=== PATIENT | female | born 1955 ===

== ENCOUNTER → 2020-02-27 10:46 | Outpatient (BNVA) | payer OTHER, SELFPAY | PROVIDERS: PCP Internal Medicine; Referring Provider Internal Medicine; Visit Provider Nurse Practitioner | DX: K58.2 Mixed irritable bowel syndrome (principal); K21.9 Gastro-esophageal reflux disease without esophagitis; R10.13 Epigastric pain; Z55.0 Illiteracy and low-level literacy; R41.3 Other amnesia; Z79.899 Other long term (current) drug therapy | CPT/HCPCS: 99213 ==

== ENCOUNTER → 2020-08-05 12:39 | Outpatient (BNVA) | payer OTHER, SELFPAY | PROVIDERS: PCP Internal Medicine; Visit Provider Nurse Practitioner ==

== ENCOUNTER 2020-08-27 08:00 | Outpatient (REF) | payer MEDICARE, MEDICAID, SELFPAY ==
--- NOTE | ~2020-08-27 | XR_ITS ---
EXAMINATION: XR KNEE, RIGHT CLINICAL INFORMATION: Pain in the right knee. COMPARISON: None TECHNIQUE: Four views of the right knee. FINDINGS: In the medial compartment, there is joint space narrowing and marginal osteophytes indicative of [id number] osteoarthritis. The lateral compartment is unremarkable. On the lateral projection, no definite patellofemoral abnormality. There is no patellar view. There is no effusion. XR/XR knee RT 2V IMPRESSION: Osteoarthritis of the right knee involving at least the medial compartment. No acute abnormality.
--- NOTE | ~2020-08-27 | XR_ITS ---
EXAMINATION: XR HIP, RIGHT CLINICAL INFORMATION: Pain in the right hip COMPARISON: CT scan of the abdomen and pelvis July 2017. TECHNIQUE: Two views of the right hip. FINDINGS: Small marginal osteophytes about the femoral head neck junction without joint space narrowing. Overall mild arthrosis. Sclerotic changes along the distal sacroiliac joint as seen on prior CT. This may in part reflect osteitis condensans ilii as well as arthrosis of the SI joint. There is no fracture or acute abnormality. Surrounding soft tissues unremarkable. XR/XR hip RT min 2V IMPRESSION: Mild osteoarthritis of the right hip. 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
[2020-08-27 09:41] LABS: MANUAL DIFF FLAG NO
[2020-08-27 09:58] LABS: Basophils Absolute Auto 0.1 X10*3/uL (0.0-0.2); Basophils Percent Auto 1.2 % (0-2); Eosinophils Absolute Auto 0.2 X10*3/uL (0.0-0.4); Eosinophils Percent Auto 3.3 % (0-4); Hematocrit 37.4 % (37-47); Hemoglobin 12.4 g/dl (12.0-16.0); Imm Gran Abs Auto 0.01 X10*3/uL (0.00-0.03); Imm Gran Pct Auto 0.2 % (0.0-0.4); Lymphocytes Absolute Auto 2.2 X10*3/uL (1.2-4.9); Lymphocytes Percent Auto 45.2 % (20-40); Mean Corpuscular HGB Conc 33.2 g/dl (31.0-35.0); Mean Corpuscular Volume 90.6 fL (80-98); Mean Platelet Volume 11.4 fL (9.4-12.3); Monocytes Absolute Auto 0.5 X10*3/uL (0.1-1.2); Monocytes Percent Auto 9.4 % (2-11); Neutrophils Percent Auto 40.7 % (45-73); Platelet Count 270 X10*3/uL (160-400); Red Blood Count 4.13 X10*6/uL (4.20-5.50); Red Cell Distribution Width 15.1 % (11.0-16.0); White Blood Count 4.9 X10*3/uL (4.8-10.8)
[2020-08-27 10:02] LABS: Estimated Average Glucose 126 mg/dL
[2020-08-27 10:13] LABS: Alanine Aminotransferase 7 U/L (0-31); Albumin Level 4.1 g/dL (3.5-5.0); Alkaline Phosphatase 75 U/L (39-117); Anion Gap 12 (12-20); Aspartate Amino Transferase 12 U/L (5-31); Bilirubin Total 0.7 mg/dL (0.0-1.0); Blood Urea Nitrogen 15 mg/dL (9-16); Calcium 9.4 mg/dL (8.4-10.2); Carbon Dioxide 31 mmol/L (22-29); Chloride 105 mmol/L (96-108); Cholesterol 183 mg/dL; Estimated Glomerular Filt Rate > 60; Glucose Random 121 mg/dL (60-115); HDL Cholesterol 50 mg/dL; LDL Cholesterol Calculated 113 mg/dl; Sodium 144 mmol/L (135-145); Triglycerides 100 mg/dL
[2020-08-27 10:37] LABS: Free T4 (Free Thyroxine) 1.19 ng/dL (0.71-1.85); Thyroid Stimulating Hormone 1.66 uIU/mL (0.32-4.0); Vitamin D 25-OH Total 13.4 ng/mL (>30)
[2020-08-27 11:13] LABS: Folate 9.1 ng/mL (> or = 4.0); Vitamin B12 245 pg/mL (200-900)
[2020-08-27 12:00] LABS: Creatinine Urine 223.03 mg/dL; Microalbum/Creatinine Ratio Ur 4.4 ug/mg cr
== END 2020-08-27 08:01 | disposition home or self-care (01) ==
LOC: HO.LAB 08:00
PROVIDERS: PCP Internal Medicine; Visit Provider Internal Medicine
DX: E11.65 Type 2 diabetes mellitus with hyperglycemia (principal); I10 Essential (primary) hypertension; E78.00 Pure hypercholesterolemia, unspecified; R79.89 Other specified abnormal findings of blood chemistry; K21.9 Gastro-esophageal reflux disease without esophagitis; M25.561 Pain in right knee; M25.551 Pain in right hip
CPT/HCPCS: 36415; 73502; 73560; 80053; 80061; 82043; 82306; 82607; 82746; 83036; 84439; 84443; 85025

== ENCOUNTER → 2021-01-26 13:27 | Outpatient (BNVA) | payer MEDICARE, MEDICAID, SELFPAY | PROVIDERS: PCP Internal Medicine; Visit Provider Nurse Practitioner | CPT/HCPCS: Q3014 ==

== ENCOUNTER 2021-03-02 08:04 | Outpatient (REF) | payer MEDICARE, MEDICAID, SELFPAY ==
[2021-03-02 09:31] LABS: Creatinine Urine 145.07 mg/dL
[2021-03-02 09:42] LABS: Alanine Aminotransferase 14 U/L (0-31); Albumin Level 3.9 g/dL (3.5-5.0); Alkaline Phosphatase 80 U/L (39-117); Anion Gap 12 (12-20); Aspartate Amino Transferase 19 U/L (5-31); Bilirubin Total 0.6 mg/dL (0.0-1.0); Blood Urea Nitrogen 16 mg/dL (9-16); Calcium 9.4 mg/dL (8.4-10.2); Carbon Dioxide 30 mmol/L (22-29); Chloride 101 mmol/L (96-108); Cholesterol 211 mg/dL; Estimated Glomerular Filt Rate 48; Glucose Random 133 mg/dL (60-115); HDL Cholesterol 51 mg/dL; LDL Cholesterol Calculated 132 mg/dl; Potassium 4.2 mmol/L (3.3-5.1); Sodium 139 mmol/L (135-145); Total Protein 6.7 g/dL (6.5-8.0); Triglycerides 144 mg/dL
== END 2021-03-02 08:05 | disposition home or self-care (01) ==
LOC: HO.LAB 08:04
PROVIDERS: PCP Internal Medicine; Visit Provider Internal Medicine
DX: E78.00 Pure hypercholesterolemia, unspecified (principal); E11.65 Type 2 diabetes mellitus with hyperglycemia; R79.89 Other specified abnormal findings of blood chemistry
CPT/HCPCS: 36415; 80053; 80061; 82306

== ENCOUNTER 2021-03-05 12:37 | Day surgery (SDC) | payer MEDICARE, MEDICAID, SELFPAY ==
--- NOTE | 2021-03-04 10:39 | P.CONAN_ITS ---
Documented by User: Karlee Smith NP 03/04/21 10:42 HPI - Anesthesia Eval Consult details Narrative: 65yo F for Colonoscopy PMFSH Active Problems Active Problems: All Active Problems (Updated 03/01/21 @ 12:08 by Michelle Sanchez MD) Abscess of nipple, left (Acute) Hematuria (Acute) Plantar warts (Acute) Low vitamin D level (Acute) Asthma (Acute) HTN (hypertension), benign (Acute) High cholesterol (Acute) Irritable bowel syndrome with both constipation and diarrhea (Acute) GERD (gastroesophageal reflux disease) (Acute) Right groin pain (Acute) Hip pain, right (Acute) Knee pain, right (Acute) Seborrheic keratosis (Acute) Annual physical exam (Acute) Colon cancer screening (Acute) Illiterate (Acute) Type 2 diabetes mellitus with hyperglycemia (Acute) Tobacco abuse (Acute) Obesity (BMI 30-39.9) (Acute) Past Medical History Medical History Asthma Elevated cholesterol Gastric ulcer GERD (gastroesophageal reflux disease) History of anemia History of memory loss HTN (hypertension) IBS (irritable bowel syndrome) Illiterate Obesity (BMI 30-39.9) On beta saniya at home Osteoarthritis Osteopenia Otitis externa Tobacco abuse Type 2 diabetes mellitus with hyperglycemia Family History Family History (Updated 03/01/21 @ 11:24 by VIRGIE Ignacio) Father Prostate cancer Mother Brain tumor Surgical History Surgical History H/O colonoscopy with polypectomy H/O cystoscopy H/O oophorectomy History of arthroscopy of left knee History of esophagogastroduodenoscopy (EGD) History of hysterectomy History of total knee replacement Hx of section Social History Social History Household Members: None Housing: Apartment Alcohol intake: never Patient Tobacco Use Status: Current everyday Tobacco user Tobacco use type: Cigarette Cigarettes Per Day: 5 Years Smoked: 2-3 cigarette a day e-Cigarette/Vaping Use: Never Used Second Hand Smoke Exposure: No Use of substances other than those prescribed or required for medical reasons: No Have you been hit, kicked, punched, or otherwise hurt by someone within the past year? If so, by whom?: No Advance Directives: No Advance Directives Information Provided: Yes Recently lost weight without trying: No Nutrition Risks: No Nutritional Risk service: No Current occupational status: disabled Meds Allergies Allergy/AdvReac Type Severity Reaction Status Date / Time ibuprofen [From Motrin] Allergy Unknown GI UPSET Verified 03/01/21 11:21 Home Medications Medication Instructions Recorded Confirmed Last Taken Type atorvastatin 10 mg tablet 10 mg PO DAILY 02/27/20 02/26/21 Unknown History [id number]-[id number]-[id number] 3.5 ml OTIC (EARS) 02/27/20 11/27/20 Unknown History mg/mL-10,000 unit/mL-1 % ear solution Exam Exam Date and Time: March 04, 2021 1039 Pertinent Lab Results Pertinent Lab Results: Laboratory Tests 08/27/20 03/02/21 08:17 08:30 WBC 4.9 Hgb 12.4 Hct 37.4 Plt Count 270 Sodium 139 Potassium 4.2 Chloride 101 Carbon Dioxide 30 H BUN 16 Creatinine 1.14 Assessment and Plan Assessment Anesthesia Assessment: Chart Reviewed Documented by User: Chitra Rice MD 03/05/21 14:41 [facility] Past Medical History Medical History Asthma Elevated cholesterol Gastric ulcer GERD (gastroesophageal reflux disease) History of anemia History of memory loss HTN (hypertension) IBS (irritable bowel syndrome) Illiterate Obesity (BMI 30-39.9) On beta saniya at home Osteoarthritis Osteopenia Otitis externa Tobacco abuse Type 2 diabetes mellitus with hyperglycemia Family History Family History (Updated 03/01/21 @ 11:24 by VIRGIE Ignacio) Father Prostate cancer Mother Brain tumor Family history of problems with anesthesia: No Surgical History Surgical History H/O colonoscopy with polypectomy H/O cystoscopy H/O oophorectomy History of arthroscopy of left knee History of esophagogastroduodenoscopy (EGD) History of hysterectomy History of total knee replacement Hx of section History of Problems with Anesthesia: No Social History Social History Household Members: None Housing: Apartment Alcohol intake: never Patient Tobacco Use Status: Current everyday Tobacco user Tobacco use type: Cigarette Cigarettes Per Day: 5 Years Smoked: 2-3 cigarette a day e-Cigarette/Vaping Use: Never Used Second Hand Smoke Exposure: No Use of substances other than those prescribed or required for medical reasons: No Have you been hit, kicked, punched, or otherwise hurt by someone within the past year? If so, by whom?: No Advance Directives: No Advance Directives Information Provided: Yes Recently lost weight without trying: No Nutrition Risks: No Nutritional Risk service: No Current occupational status: disabled Meds Allergies Allergy/AdvReac Type Severity Reaction Status Date / Time ibuprofen [From Motrin] Allergy Unknown GI UPSET Verified 03/01/21 11:21 Home Medications Medication Instructions Recorded Confirmed Last Taken Type atorvastatin 10 mg tablet 10 mg PO DAILY 02/27/20 02/26/21 Unknown History [id number]-dxzvhqgtj-lxldmsfyd 3.5 ml OTIC (EARS) 02/27/20 11/27/20 Unknown History mg/mL-10,000 unit/mL-1 % ear solution Exam Airway Mallampati Class: II (Missing a couple) TM Dist: >3cm Neck ROM: Full Heart: rrr Lungs: cta Assessment and Plan Assessment Anesthesia Assessment: Anesthesia Plan Discussed and Chart Reviewed Final Anesthetic Review Family History of Problems with Anesthesia: No History of Problems with Anesthesia: No NPO: Yes ASA Class: III Final Preanesthetic Review: No Changes in Pt Med Stat, Meds/Allgs Chart Reviewed and Consent Obtained/Reviewed Patient Risk: Intermediate Procedure Risk: Intermediate Anesthetic Plan Anesthetic Plan: MAC: Disposition: Standard PACU
[2021-03-05 13:03] VITALS: BP 159/70; PULSE 59; RESP 17; TEMP 36.3; O2SAT 98; BMI 30.2
[2021-03-05 13:14] LABS: Glucose, Whole Blood 104 mg/dL (60-115)
[2021-03-05] MEDS: Lactated Ringers 1,000 ML 100 ML IVCONT (13:22)
--- NOTE | 2021-03-05 13:24 | PC.NURSE ---
ls clear nad aware plan of care
--- NOTE | 2021-03-05 13:39 | P.HPSUR_ITS ---
Pre-Procedural Eval Section A Date of Service: 03/05/21 The patient is an INPATIENT: No The History & Physical has been completed within 30 days and I have reviewed it.: No Section B Chief Complaint: Screening Details of Present Illness: Colon cancer screening, IBS with diarrhea and constipation Relevant Family History (Specify if Yes): No Relevant Social History: Tobacco Use Present Medications: see Short Stay Collaborative assessment Medical History: Significant History (Gastric ulcer Illiterate Obesity (BMI 30- 39.9) Osteoarthritis Osteopenia Otitis externa Tobacco abuse Type 2 diabetes mellitus with hyperglycemia) History of Previous Operations: Relevant previous surgery/procedure and date(s) (H/O colonoscopy with polypectomy H/O cystoscopy H/O oophorectomy History of esophagogastroduodenoscopy (EGD) History of hysterectomy History of total knee replacement) Allergies: Allergies Allergy/AdvReac Type Severity Reaction Status Date / Time ibuprofen [From Motrin] Allergy Unknown GI UPSET Verified 03/01/21 11:21 Review of Systems Sugical H&P ROS: Negative: Constitution, Cardiovascular, Respiratory and Gastrointestinal Exam Surgical H&P Exam: Normal: Heart, Normal: Lungs, Normal: Extremities and Normal: Abdomen Plan Diagnosis/Plan: Unchanged I have reviewed the history and physical and performed a pertinent physical examination on my patient. No changes have occurred unless specified.
--- NOTE | 2021-03-05 13:42 | P.BOP_ITS ---
Brief Operative Note Date of Service: 03/05/21 Pre-op diagnosis: Colon cancer screening, IBS Post-op diagnosis: other (Colon polyps, diverticulosis) Procedure: COLONOSCOPY TILL CECUM WITH BIOPSIES Consent: Indications for the procedure and potential complications of bleeding, perforation, reaction to medications and missed diagnosis were discussed with the patient and informed consent was obtained. Instrument: Olympus PCF H 190 L variable stiffness pediatric colonoscope Monitoring: Vital signs and clinical assessment, intermittent blood pressure monitoring, continuous EKG monitoring, Pulse oximetry and Carbon Dioxide monitoring were done throughout the procedure. Colon withdrawl time was 28 minutes. Procedure: The patient was placed in the left lateral decubitis position and pre-procedure medications were administered. After a digital rectal examination of the ano-rectum, the video colonoscope was inserted into the rectum and advanced through the colon to the cecum. The colonoscope was slowly withdrawn in a retrograde panoramic fashion and the colon mucosa was carefully examined including a retroflexed view of the rectum. Findings and interventions are described below. Procedure Difficulty: Without difficulty Findings: Terminal Ileum: Not evaluated Cecum: Normal Ascending Colon: Two 3-4 mm sessile polyps removed with the cold biopsy Transverse Colon: Normal Descending Colon: Normal Sigmoid Colon: A 4-5 mm sessile polyp removed with the cold biopsy. Moderate diverticulosis Rectum: A few 2-3 mm diminutive appearing polyps - one removed with a cold bxl Ano-rectum: Tequila-anal skin tags Colon preparation: Good copious irrigation. Impression and Post Procedure Diagnosis: Colonoscopy Findings: Four small polyps removed Moderate diverticulosis seen in the sigmoid colon Plan: Await pathology results Patient has an appointment on 03/18/21 in the GI [facility] with Brenda Mann NP . Repeat Colonoscopy interval based on path results - in 3-5 years if polyps are adenomatous and 10 years if polyps are hyperplastic. Above findings were reviewed with the patient and colon polyps and diverticulosis handouts were given in the discharge area Surgeon: Bradley Erazo MD Anesthesia: MAC (Dr Da Silva) Was an Volunteer Specialist used for this Procedure?: Yes Volunteer Specialist: Darlene Dutta Estimated blood loss (mL): 0 Pathology: other (A. ascending colon polyps B- Sigmoid polyp C- Rectal polyp) Condition: stable Disposition: PACU
--- NOTE | 2021-03-05 13:44 | W.PM.OPN ---
Operative Note Operative Note Date of Service: 03/05/21 Narrative: Pre-op diagnosis:?Colon cancer screening, IBS Post-op diagnosis:?other (Colon polyps, diverticulosis) Procedure:? COLONOSCOPY TILL CECUM WITH BIOPSIES Consent: Indications for the procedure and potential complications of bleeding, perforation, reaction to medications and missed diagnosis were discussed with the patient and informed consent was obtained. Instrument: Olympus PCF H 190 L variable stiffness pediatric colonoscope Monitoring: Vital signs and clinical assessment, intermittent blood pressure monitoring, continuous EKG monitoring, Pulse oximetry and Carbon Dioxide monitoring were done throughout the procedure. Colon withdrawl time was 28 minutes. Procedure: The patient was placed in the left lateral decubitis position and pre-procedure medications were administered. After a digital rectal examination of the ano-rectum, the video colonoscope was inserted into the rectum and advanced through the colon to the cecum. The colonoscope was slowly withdrawn in a retrograde panoramic fashion and the colon mucosa was carefully examined including a retroflexed view of the rectum. Findings and interventions are described below. Procedure Difficulty: Without difficulty Findings: Terminal Ileum: Not evaluated Cecum:? Normal Ascending Colon:? Two 3-4 mm sessile polyps removed with the cold biopsy Transverse Colon:? Normal Descending Colon:? Normal Sigmoid Colon:? A 4-5 mm sessile polyp removed with the cold biopsy. Moderate diverticulosis Rectum:? A few 2-3 mm diminutive appearing polyps - one removed with a cold bxl Ano-rectum:? Tequila-anal skin tags Colon preparation:? Good copious irrigation. Impression and Post Procedure Diagnosis: Colonoscopy Findings: Four small polyps removed Moderate diverticulosis seen in the sigmoid colon Plan: Await pathology results Patient has an appointment on 03/18/21 in the GI Clinic with? Brenda Mann NP? . Repeat Colonoscopy interval based on path results - in 3-5 years if polyps are adenomatous and 10 years if polyps are hyperplastic. Above findings were reviewed with the patient and colon polyps and diverticulosis handouts were given in the discharge area Surgeon:?Bradley Erazo MD Anesthesia:?MAC (Dr Da Silva) Was an Chocolate Packer used for this Procedure?:?Yes Chocolate Packer:?Darlene Dutta Estimated blood loss (mL):?0 Pathology:?other (A. ascending colon polyps? B- Sigmoid polyp? C- Rectal polyp) Condition:?stable Disposition:?PACU
[2021-03-05 15:33] VITALS: BP 97/70; PULSE 58; RESP 16; TEMP 36.2; O2SAT 97
[2021-03-05 15:48] VITALS: BP 155/78; PULSE 61; RESP 16; TEMP 36.2; O2SAT 97
== END 2021-03-05 16:08 | disposition home or self-care (01) ==
PROVIDERS: PCP Internal Medicine; Visit Provider Internal Medicine Gastroenterology
PROC: 0DJD8ZZ Inspection of Lower Intestinal Tract, Via Natural or Artificial Opening Endoscopic (ICD-10-PCS; CPT 45378; principal; 2021-03-05 13:50)
DX: Z12.11 Encounter for screening for malignant neoplasm of colon (principal); K63.5 Polyp of colon; K62.1 Rectal polyp; K57.30 Diverticulosis of large intestine without perforation or abscess without bleeding; K58.2 Mixed irritable bowel syndrome; K64.4 Residual hemorrhoidal skin tags; K21.9 Gastro-esophageal reflux disease without esophagitis; M85.80 Other specified disorders of bone density and structure, unspecified site; I10 Essential (primary) hypertension; J45.909 Unspecified asthma, uncomplicated; E11.65 Type 2 diabetes mellitus with hyperglycemia; E66.9 Obesity, unspecified; Z68.36 Body mass index [BMI] 36.0-36.9, adult; F17.210 Nicotine dependence, cigarettes, uncomplicated; Z55.0 Illiteracy and low-level literacy; Z79.899 Other long term (current) drug therapy
CPT/HCPCS: 45380; 82947; 88305

== ENCOUNTER → 2021-03-18 10:15 | Outpatient (BNVA) | payer MEDICARE, MEDICAID, SELFPAY | PROVIDERS: PCP Internal Medicine; Visit Provider Nurse Practitioner | DX: K58.2 Mixed irritable bowel syndrome (principal); K21.9 Gastro-esophageal reflux disease without esophagitis; Z55.0 Illiteracy and low-level literacy; Z98.890 Other specified postprocedural states; Z86.010 Personal history of colon polyps | CPT/HCPCS: 99212 ==

== ENCOUNTER 2021-05-12 12:01 | Outpatient (REF) | payer MEDICARE, MEDICAID, SELFPAY ==
--- NOTE | ~2021-05-12 | US_ITS ---
EXAMINATION: US RETROPERITONEAL LIMITED (RENAL ONLY) CLINICAL INFORMATION: Hematuria, unspecified. COMPARISON: Renal ultrasound 08/14/2019 and 08/23/2018. CT abdomen and pelvis 08/10/2017. KUB 01/30/2017. TECHNIQUE: Real-time imaging of the kidneys. FINDINGS: RIGHT KIDNEY: 8.6 x 4.9 x 4.3 cm (SAG x AP x TRV). The kidney is normal in size, contour, and echogenicity. Renal cortical thickness is normal. There are 2 cysts measuring 3 cm in the midpole and 2.5 cm in the lower pole. No renal calculi or hydronephrosis. LEFT KIDNEY: 9.7 x 5.1 x 4.8 cm (SAG x AP x TRV). The kidney is normal in size, contour, and echogenicity. Renal cortical thickness is normal. There is a 1 x 2 cm cyst in the lower pole. There is a 5 mm echogenic density with twinkle artifact in the midpole questionable for a stone versus vascular reflector. No hydronephrosis. US/US renal BI IMPRESSION: I lateral renal cysts. Question left renal stone versus vascular reflector the midpole.
== END 2021-05-12 12:02 | disposition home or self-care (01) ==
LOC: HO.US 12:01
PROVIDERS: PCP Internal Medicine; Visit Provider Urology
DX: R31.9 Hematuria, unspecified (principal)
CPT/HCPCS: 76775

== ENCOUNTER → 2021-06-04 10:18 | Outpatient (BNVA) | payer MEDICARE, MEDICAID, SELFPAY | PROVIDERS: PCP Internal Medicine | DX: N20.0 Calculus of kidney (principal) | CPT/HCPCS: 99212 ==

== ENCOUNTER 2022-02-17 08:55 | Outpatient (REF) | payer MEDICARE, MEDICAID, SELFPAY ==
[2022-02-17 09:06] LABS: MANUAL DIFF FLAG NO
[2022-02-17 10:18] LABS: Basophils Absolute Auto 0.1 X10*3/uL (0.0-0.2); Basophils Percent Auto 1.7 % (0-2); Eosinophils Absolute Auto 0.2 X10*3/uL (0.0-0.4); Eosinophils Percent Auto 4.5 % (0-4); Hematocrit 37.3 % (37.0-47.0); Hemoglobin 12.5 g/dl (12.0-16.0); Imm Gran Abs Auto 0.01 X10*3/uL (0.00-0.03); Imm Gran Pct Auto 0.2 % (0.0-0.4); Lymphocytes Absolute Auto 1.9 X10*3/uL (1.2-4.9); Lymphocytes Percent Auto 45.4 % (20-40); Mean Corpuscular HGB Conc 33.5 g/dl (31.0-35.0); Mean Corpuscular Hemoglobin 30.6 pg (27.0-33.0); Mean Corpuscular Volume 91.2 fL (80.0-98.0); Mean Platelet Volume 11.9 fL (9.4-12.3); Monocytes Absolute Auto 0.5 X10*3/uL (0.1-1.2); Monocytes Percent Auto 10.6 % (2-11); Neutrophils Absolute Auto 1.6 x10*3/uL (2.0-8.3); Neutrophils Percent Auto 37.6 % (45-73); Platelet Count 282 X10*3/uL (160-400); Red Blood Count 4.09 X10*6/uL (4.20-5.50); Red Cell Distribution Width 13.2 % (11.0-16.0); White Blood Count 4.2 X10*3/uL (4.8-10.8)
[2022-02-17 10:29] LABS: Estimated Average Glucose 126 mg/dL
[2022-02-17 10:44] LABS: Alanine Aminotransferase 10 U/L (0-31); Alkaline Phosphatase 68 U/L (39-117); Anion Gap 17 (12-20); Aspartate Amino Transferase 15 U/L (5-31); Bilirubin Total 0.2 mg/dL (0.0-1.0); Blood Urea Nitrogen 26 mg/dL (9-16); Calcium 9.4 mg/dL (8.4-10.2); Carbon Dioxide 27 mmol/L (22-29); Chloride 100 mmol/L (96-108); Cholesterol 157 mg/dL; Estimated Glomerular Filt Rate 51; Glucose Random 119 mg/dL (60-115); HDL Cholesterol 47 mg/dL; LDL Cholesterol Calculated 98 mg/dl; Potassium 4.5 mmol/L (3.3-5.1); Sodium 139 mmol/L (135-145); Total Protein 6.9 g/dL (6.5-8.0); Triglycerides 63 mg/dL
[2022-02-17 11:08] LABS: Free T4 (Free Thyroxine) 1.17 ng/dL (0.71-1.85); Thyroid Stimulating Hormone 1.83 uIU/mL (0.32-4.0); Vitamin D 25-OH Total 14.1 ng/mL (>30)
[2022-02-17 11:10] LABS: Creatinine Urine 52.82 mg/dL; Microalbumin Urine < 5.0 mg/L
[2022-02-17 11:44] LABS: Folate 12.3 ng/mL (> or = 4.0); Vitamin B12 352 pg/mL (200-900)
== END 2022-02-17 08:56 | disposition home or self-care (01) ==
LOC: HO.LAB 08:55
PROVIDERS: PCP Internal Medicine; Visit Provider Internal Medicine
DX: E11.65 Type 2 diabetes mellitus with hyperglycemia (principal); E78.00 Pure hypercholesterolemia, unspecified
CPT/HCPCS: 36415; 80053; 80061; 82043; 82306; 82607; 82746; 83036; 84439; 84443; 85025

== ENCOUNTER 2022-05-30 12:13 | Outpatient (REF) | payer MEDICARE, MEDICAID, SELFPAY ==
--- NOTE | ~2022-05-30 | US_ITS ---
EXAMINATION: US RETROPERITONEAL LIMITED (RENAL ONLY) CLINICAL INFORMATION: Calculus of kidney. COMPARISON: Ultrasound renal 05/12/2021. US renals 08/14/2019. TECHNIQUE: Real-time imaging of the kidneys. FINDINGS: RIGHT KIDNEY: 8.0 x 4.6 x 5.7 cm (SAG x AP x TRV). The kidney is normal in size, contour, and echogenicity. Renal cortical thickness is normal. No renal calculi or hydronephrosis. Mid pole 2.6 cm cyst, previously measuring 3 cm. Additional cyst inferior to this measuring 2.4 cm, previously measuring 2.5 cm. LEFT KIDNEY: 9.0 x 4.8 x 5.4 cm (SAG x AP x TRV). The kidney is normal in size, contour, and echogenicity. Renal cortical thickness is normal. No renal calculi or hydronephrosis. There is a mid pole 1.3 cm cyst. There is a 0.9 cm lower pole cyst. US/US renal BI IMPRESSION: Bilateral renal cysts as detailed above..
== END 2022-05-30 12:14 | disposition home or self-care (01) ==
LOC: HO.US 12:13
PROVIDERS: PCP Internal Medicine
DX: N20.0 Calculus of kidney (principal)
CPT/HCPCS: 76775

== ENCOUNTER 2022-06-06 08:39 | Outpatient (REF) | payer MEDICARE, MEDICAID, SELFPAY ==
[2022-06-06 17:10] LABS: Urine Cytology See Pathology rpt
== END 2022-06-06 08:40 | disposition home or self-care (01) ==
LOC: HO.LAB 08:39
PROVIDERS: PCP Internal Medicine; Visit Provider Nurse Practitioner Family
DX: N20.0 Calculus of kidney (principal); N28.1 Cyst of kidney, acquired; Z79.899 Other long term (current) drug therapy
CPT/HCPCS: 88112; 99212

== ENCOUNTER → 2022-06-22 07:51 | Outpatient (BNVA) | payer MEDICARE, MEDICAID, SELFPAY | PROVIDERS: PCP Internal Medicine; Referring Provider Internal Medicine; Visit Provider Nurse Practitioner | DX: K58.2 Mixed irritable bowel syndrome (principal); K21.9 Gastro-esophageal reflux disease without esophagitis; Z55.0 Illiteracy and low-level literacy; Z98.890 Other specified postprocedural states; Z86.010 Personal history of colon polyps | CPT/HCPCS: 99212 ==

== ENCOUNTER 2022-07-06 12:05 | Outpatient (REF) | payer MEDICARE, MEDICAID, SELFPAY ==
--- NOTE | ~2022-07-06 | XR_ITS ---
EXAMINATION: XR HIP, LEFT CLINICAL INFORMATION: Peripheral vascular disease COMPARISON: None TECHNIQUE: Two views of the left hip. FINDINGS: No acute fracture or dislocation. Joint spaces are maintained. Soft tissues are unremarkable. XR/XR hip LT min 2V IMPRESSION: No acute osseous abnormality.
--- NOTE | ~2022-07-06 | XR_ITS ---
EXAMINATION: XR shoulder LT min 2V CLINICAL INFORMATION: Reason for Exam I73.9 - Peripheral vascular disease, unspecified COMPARISON: None TECHNIQUE: Four views of the shoulder. FINDINGS: No acute fracture or dislocation. Moderate degenerative changes of the shoulder with degenerative spurring of the glenohumeral and acromioclavicular joints and loss of glenohumeral joint space. Soft tissues are unremarkable. XR/XR shoulder LT min 2V IMPRESSION: * Moderate degenerative changes of the shoulder.
== END 2022-07-06 12:06 | disposition home or self-care (01) ==
LOC: HO.XRAY 12:05
PROVIDERS: PCP Internal Medicine; Visit Provider Internal Medicine
DX: I73.9 Peripheral vascular disease, unspecified (principal); M19.012 Primary osteoarthritis, left shoulder
CPT/HCPCS: 73030; 73502

== ENCOUNTER → 2022-08-16 09:04 | Outpatient (BNVA) | payer MEDICARE, MEDICAID, SELFPAY | PROVIDERS: PCP Internal Medicine; Referring Provider Internal Medicine; Visit Provider Nurse Practitioner | DX: K21.9 Gastro-esophageal reflux disease without esophagitis (principal); K58.2 Mixed irritable bowel syndrome; Z55.0 Illiteracy and low-level literacy | CPT/HCPCS: 99212 ==

== ENCOUNTER → 2022-11-07 09:57 | Outpatient (BNVA) | payer MEDICARE, MEDICAID, SELFPAY | PROVIDERS: PCP Internal Medicine; Visit Provider Physician Assistant | DX: M75.102 Unspecified rotator cuff tear or rupture of left shoulder, not specified as traumatic (principal) | CPT/HCPCS: 99202 ==

== ENCOUNTER 2023-02-01 13:53 | Outpatient (AMB) | payer MEDICARE, MEDICAID, SELFPAY ==
[2023-02-01 14:24] VITALS: BP 142/86; PULSE 105; O2SAT 98; BMI 38.6
--- NOTE | 2023-02-01 14:26 | A.OFFVIS_ITS ---
Intake Vital Signs 02/01/23 14:24 02/01/23 14:29 Height 4 ft 11 in Weight 191 lb BMI 38.6 38.6 BP 142/86 H Blood Pressure Location Lt brachial Position Sitting Pulse 105 H Pulse Source Pulse Oximeter Temp Source Skin Pulse Oximetry (%) 98 Oxygen Delivery Method Room Air Intake Visit Reasons: AWV Allergies ibuprofen [From Motrin] Allergy (Unknown, Verified 02/01/23 14:57) GI UPSET Medication List - Last Reconciled 02/01/23 by SHERRIE Burgos albuterol sulfate 2.5 mg (3 mL) inhalation Q4-6H PRN 90 days albuterol sulfate 90 mcg/actuation 2 inhalations PO Q4H PRN alendronate 70 mg PO QWEEK blood pressure monitor (Blood Pressure Kit) As directed cane As directed celecoxib (Celebrex) 200 mg PO DAILY cholecalciferol (vitamin D3) 50 mcg PO DAILY 90 days clonidine HCl 0.1 mg PO TID 90 days lili.stocking,knee,reg,xlrg As directed 20-30 mm HG diclofenac sodium 75 mg PO BID PRN docusate sodium (Colace) 100 mg PO .DAILY WITH FOOD 30 days famotidine 40 mg PO BID 30 days felodipine ER 10 mg PO DAILY fluticasone propionate 50 mcg/actuation (Flonase Allergy Relief) 1 spray intranasal DAILY fluticasone propionate 110 mcg/actuation 2 inhalations inhalation BID 90 days hydrochlorothiazide 25 mg PO DAILY lisinopril 40 mg PO DAILY metoprolol succinate ER 150 mg (1.5 x 100 mg) PO DAILY 90 days pyridoxine (vitamin B6) 100 mg PO DAILY sennosides (senna) 17.2 mg (2 x 8.6 mg) PO BEDTIME 90 days Shower Chair As directed tramadol 50 mg PO BEDTIME HPI HPI Comments History of Present Illness Details 67-year-old female past medical history significant for type 2 diabetes mellitus, GERD, IBS, hypertension, high cholesterol, asthma, PVD. Patient of presents today for subsequent annual well visit. Eye exam: UTD follow with Dr. Craft pap smear: patient states appointment in November Mammogram completed at [facility] on 12/26/22: Benign BMD: Completed October 2022 showed osteopenia, patient currently on alendronate. Colonoscopy completed in October [address] Erazo Patient reminded to get previously ordered fasting lab work completed. [place] of care was reviewed with patient patient was provided with a written screening schedule. [facility] Medical History Abscess of nipple, left Annual physical exam Asthma Asthma exacerbation Colon cancer screening Elevated cholesterol Gastric ulcer GERD (gastroesophageal reflux disease) History of anemia History of memory loss HTN (hypertension) IBS (irritable bowel syndrome) Illiterate Knee pain, right Obesity (BMI 30-39.9) On beta saniya at home Osteoarthritis Osteopenia Otitis externa Renal calculi Renal cyst Seborrheic keratosis Tobacco abuse Type 2 diabetes mellitus with hyperglycemia Surgical History H/O colonoscopy with polypectomy H/O cystoscopy H/O oophorectomy History of arthroscopy of left knee History of esophagogastroduodenoscopy (EGD) History of hysterectomy History of total knee replacement Hx of section Family History Father Prostate cancer Mother Brain tumor Social History Household Members: None Housing: Apartment Alcohol intake: never Patient Tobacco Use Status: Current everyday Tobacco user Tobacco use type: Cigarette Cigarettes Per Day: 5 Years Smoked: 2-3 cigarette a day e-Cigarette/Vaping Use: Never Used Second Hand Smoke Exposure: No service: No Current occupational status: disabled Cognitive needs: Yes Hearing needs: No Vision needs: No Questionnaire Medicare Wellness Checkup [age] What gender do you identify with?: female During the past 4 weeks, how much have you been bothered by emotional problems such as feeling anxious, depressed, irritable, sad or downhearted, and blue?: not at all During the past 4 weeks, has your physical & emotional health limited your social activities with family, friends, neighbors, or groups?: not at all During the past 4 weeks, how much bodily pain have you generally had?: severe pain During the past 4 weeks, was someone available to help you if you needed & wanted help?: yes, quite a bit During the past 4 weeks, what was the hardest physical activity you could do for at least 2 minutes?: light Can you get to places out of walking distance without help? (For eg., can you travel alone on buses, taxis or drive your car?): No Can you go shopping for groceries or clothes without someone's help?: No Can you prepare your own meals?: Yes Can you do your housework without help?: No Because of any health problems, do you need the help of another person with your personal care needs such as eating, bathing, dressing or getting around the house?: Yes Can you handle your own money without help?: Yes During the past 4 weeks, how would you rate your health in general?: fair During the past 4 weeks how have things been going for you?: good & bad parts about equal Are you having difficulties driving your car?: not applicable, I don't use a car Do you always fasten your seat belt when you are in a car?: yes, usually During past 4 weeks, have you been bothered by the following: never: Sexual problems? and Problems using the telephone?, sometimes: Tiredness or fatigue? and often: Falling or dizzy when standing up and Teeth or denture problems? Have you fallen 2 or more times in the past year?: Yes Are you afraid of falling?: Yes Are you a smoker?: yes, but I'm not ready to quit During the past 4 weeks, how many drinks of wine, beer, or other alcoholic beverages did you have?: no alcohol at all Do you exercise for about 20 minutes 3 or more times a week?: yes, most of the time Have you been given information to help with the following?: no: Hazards in your house that might hurt you? and no: Keeping track of your medications? How often do you have trouble taking medicines the way you have been told to take them?: I always take medicine as prescribed How confident are you that you can control & manage most of your health problems?: somewhat confident What is your race?: or origin or descent Mini Mental State Exam (MMSE) Orientation What is the (year) (season) (date) (day) (month)?: year, season, date, day and month Score Score: 5 Activity of Daily Living Bathing - sponge bath, tub bath or shower: receives no assistance (gets in/out by self, if usual bathing means Dressing - getting clothes from closets & drawers, including inner/outer garments & fasteners.: gets clothes & gets completely dressed without help Toileting - going to the 'toilet room' for urine/bowel elimination & cleaning self/arranging clothes: goes to toilet room, cleans self, arranges clothes wi thout help Transfer: moves in & out of bed and chair without help (may use support object) Continence: controls urination/bowel movements completely by self Feeding: feeds self without help Total Score: 0 Information obtained from: patient Using telephone: independent Traveling: dependent Shopping: needs assistance Preparing meals: independent Housework: needs assistance Taking medicine: independent Managing money: needs assistance PHQ-9 Over the last 2 weeks, how often have you been bothered by any of the following problems? 1. Little interest or pleasure in doing things: not at all 2. Feeling down, depressed, or hopeless: not at all 3. Trouble falling or staying asleep, or sleeping too much: several days 4. Feeling tired or having little energy: several days 5. Poor appetite or overeating: several days 6. Feeling bad about yourself - or that you are a failure or have let yourself or your family down: not at all 7. Trouble concentrating on things, such as reading the newspaper or watching television: more than half the days 8. Moving or speaking so slowly that other people could have noticed. Or the opposite - being so fidgety or restless that you have been moving around a lot more than usual: not at all 9. Thoughts that you would be better off or of hurting yourself in some way: not at all Total score: 5 Depression Screening Interpretation: Positive 31187 - PHQ-9 Billing: Yes Source: Developed by Drs. Konstantin Langston, Saskia Sales, Luciano Leach and colleagues, with an educational liya from [employer]. Physical Exam Vital Signs: Last Vital Signs Pulse 105 H 02/01/23 14:24 BP 142/86 H 02/01/23 14:24 Pulse Ox 98 02/01/23 14:24 Oxygen Delivery Method Room Air 02/01/23 14:24 BMI result Body Mass Index 38.6 Assessment & Plan Assessment & Plan (1) Bilateral lower extremity edema: Code(s): R60.0 - Localized edema Plan: Patient BNP lab ordered to further evaluate for fluid overload. Patient advised to elevate legs when sitting (2) HTN (hypertension), benign: Code(s): I10 - Essential (primary) hypertension Plan: Continue on hydrochlorothiazide 25 mg daily, lisinopril 40 mg daily and metoprolol 150 mg daily. Patient requesting refill on metoprolol, Rx sent to patient's pharmacy. (3) High cholesterol: Code(s): E78.00 - Pure hypercholesterolemia, unspecified Plan: Continue to follow low-cholesterol diet. Patient reminded to get previously ordered fasting blood work completed. LDL goal less than 100. (4) Type 2 diabetes mellitus with hyperglycemia: Comment: Dr. 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 (5) Medicare annual wellness visit, subsequent: Code(s): Z00.00 - Encounter for general adult medical examination without abnormal findings Plan: Follow-up in 1 year for subsequent annual well visit. Plan Keep scheduled follow-up with PCP or follow-up sooner if needed. Orders: Orders B Type Natriuretic Peptide Today R60.0 - Localized edema Medications: Refilled metoprolol succinate ER 150 mg (1.5 x 100 mg) PO DAILY 90 days 135 tabs 2RF I10 - Essential (primary) hypertension Quality Reporting (2019) Depression/Bipolar (159/160/161/177) PHQ-9: Total score: 5 Coding Level of Care Code Medicare Subsequent (G0439) Diagnoses Bilateral lower extremity edema R60.0 HTN (hypertension), benign I10 High cholesterol E78.00 Type 2 diabetes mellitus with hyperglycemia, without long-term current use of insulin E11.65 Diabetes mellitus intermediate accountant insulin use: without intermediate accountant use Medicare annual wellness visit, subsequent Z00.00
[2023-02-01 14:29] VITALS: BMI 38.6
== END 2023-02-01 15:21 | disposition home or self-care (01) ==
PROVIDERS: PCP Internal Medicine; Visit Provider Nurse Practitioner Family
DX: Z00.00 Encounter for general adult medical examination without abnormal findings (principal); I10 Essential (primary) hypertension; E11.65 Type 2 diabetes mellitus with hyperglycemia; R60.0 Localized edema; E78.00 Pure hypercholesterolemia, unspecified
CPT/HCPCS: G0438

== ENCOUNTER 2023-02-02 07:56 | Outpatient (REF) | payer MEDICARE, MEDICAID, SELFPAY ==
[2023-02-02 08:17] LABS: MANUAL DIFF FLAG NO
[2023-02-02 08:53] LABS: Basophils Absolute Auto 0.1 X10*3/uL (0.0-0.2); Basophils Percent Auto 1.2 % (0-2); Eosinophils Absolute Auto 0.2 X10*3/uL (0.0-0.4); Hematocrit 38.2 % (37.0-47.0); Imm Gran Abs Auto 0.01 X10*3/uL (0.00-0.03); Imm Gran Pct Auto 0.2 % (0.0-0.4); Lymphocytes Absolute Auto 2.8 X10*3/uL (1.2-4.9); Lymphocytes Percent Auto 46.7 % (20-40); Mean Corpuscular Hemoglobin 30.6 pg (27.0-33.0); Mean Corpuscular Volume 89.9 fL (80.0-98.0); Mean Platelet Volume 11.8 fL (9.4-12.3); Monocytes Absolute Auto 0.7 X10*3/uL (0.1-1.2); Neutrophils Absolute Auto 2.2 x10*3/uL (2.0-8.3); Neutrophils Percent Auto 36.9 % (45-73); Platelet Count 286 X10*3/uL (160-400); Red Blood Count 4.25 X10*6/uL (4.20-5.50); Red Cell Distribution Width 14.6 % (11.0-16.0); White Blood Count 5.9 X10*3/uL (4.8-10.8)
[2023-02-02 09:06] LABS: B Type Natriuretic Peptide 33 pg/mL (<100)
[2023-02-02 10:04] LABS: Alanine Aminotransferase 10 U/L (0-31); Albumin Level 4.2 g/dL (3.5-5.0); Alkaline Phosphatase 66 U/L (39-117); Anion Gap 15 (12-20); Aspartate Amino Transferase 18 U/L (5-31); Bilirubin Total 0.7 mg/dL (0.0-1.0); Blood Urea Nitrogen 18 mg/dL (9-16); Carbon Dioxide 27 mmol/L (22-29); Chloride 104 mmol/L (96-108); Cholesterol 189 mg/dL (<200); Estimated Glomerular Filt Rate 44; Glucose Random 128 mg/dL (60-115); HDL Cholesterol 54 mg/dL (>40); LDL Cholesterol Calculated 116 mg/dL (<100); Potassium 3.7 mmol/L (3.3-5.1); Sodium 142 mmol/L (135-145); Total Protein 7.6 g/dL (6.5-8.0); Triglycerides 96 mg/dL (<150)
[2023-02-02 10:09] LABS: Free T4 (Free Thyroxine) 1.33 ng/dL (0.71-1.85)
[2023-02-02 10:25] LABS: Folate 10.4 ng/mL (> or = 4.0); Vitamin B12 380 pg/mL (200-900)
[2023-02-02 11:11] LABS: Microalbum/Creatinine Ratio Ur 4.3 ug/mg cr (<30)
== END 2023-02-02 07:57 | disposition home or self-care (01) ==
LOC: HO.LAB 07:56
PROVIDERS: Nurse Practitioner Family; PCP Internal Medicine; Visit Provider Internal Medicine
DX: E11.65 Type 2 diabetes mellitus with hyperglycemia (principal); E78.00 Pure hypercholesterolemia, unspecified; R60.0 Localized edema; E55.9 Vitamin D deficiency, unspecified; M85.80 Other specified disorders of bone density and structure, unspecified site
CPT/HCPCS: 36415; 80053; 80061; 82043; 82306; 82570; 82607; 82746; 83880; 84439; 84443; 85025

== ENCOUNTER 2023-02-08 09:32 | Outpatient (AMB) | payer MEDICARE, MEDICAID, SELFPAY ==
[2023-02-08 09:34] VITALS: BP 152/88; PULSE 79; O2SAT 97; BMI 39.4
--- NOTE | 2023-02-08 09:34 | A.OFFPC_ITS ---
Vital Signs 02/08/23 09:34 02/08/23 10:11 Height 4 ft 11 in Weight 195 lb BMI 39.4 BP 152/88 H 140/80 H Blood Pressure Location Lt brachial Lt brachial Position Sitting Sitting Pulse 79 Pulse Source Pulse Oximeter Pulse Oximetry (%) 97 Oxygen Delivery Method Room Air Intake Visit Reasons: Diabetes mellitus, osteoporosis Allergies ibuprofen [From Motrin] Allergy (Unknown, Verified 02/08/23 09:34) GI UPSET felodipine Adverse Reaction (Intermediate, Unverified 02/08/23 10:21) leg swelling Medication List - Last Reconciled 02/08/23 by Michelle Sanchez, albuterol sulfate 2.5 mg (3 mL) inhalation Q4-6H PRN 90 days albuterol sulfate 90 mcg/actuation 2 inhalations PO Q4H PRN alendronate 70 mg PO QWEEK atorvastatin 10 mg PO DAILY blood pressure monitor (Blood Pressure Kit) As directed cane As directed celecoxib (Celebrex) 200 mg PO DAILY cholecalciferol (vitamin D3) 50 mcg PO DAILY 90 days clonidine HCl 0.1 mg PO TID 90 days lili.stocking,knee,reg,xlrg As directed 20-30 mm HG diclofenac sodium 75 mg PO BID PRN docusate sodium (Colace) 100 mg PO .DAILY WITH FOOD 30 days famotidine 40 mg PO BID 30 days fluticasone propionate 50 mcg/actuation (Flonase Allergy Relief) 1 spray intranasal DAILY fluticasone propionate 110 mcg/actuation 2 inhalations inhalation BID 90 days hydrochlorothiazide 25 mg PO DAILY lisinopril 40 mg PO DAILY metoprolol succinate ER 150 mg (1.5 x 100 mg) PO DAILY 90 days [id number]-JE 3.5-10,000-1 mg/mL-unit/mL-% 4 drps otic (ear) right Q8H 10 days pyridoxine (vitamin B6) 100 mg PO DAILY sennosides (senna) 17.2 mg (2 x 8.6 mg) PO BEDTIME 90 days Shower Chair As directed tramadol 50 mg PO BEDTIME Tobacco use date assessed: 07/06/22 Fall risk assessment: No Falls in past year Last assessed Fall Risk: 02/08/23 Dental Screening Dental Screen Date: 02/08/23 Did you have a dental visit in the last 12 months?: Yes Did you have a dental problem in the last 6 months where you did not have access to dental care?: No Was dental information given to patient?: Patient has dentist HPI Diabetes mellitus, osteoporosis HPI Details 67-year-old obese female with controlled diabetes mellitus hypertension hypercholesterolemia coming in for follow-up. Last seen 1 week ago patient is here for follow-up. Mammogram bone density and colonoscopy are up-to-date. 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 concern on out of metoprolol med will call the pharmacy. complains of LE edema and dicsused that she is on felodipine. d/c and have her take the metoprolol hopefully this helps the LE edema ON LICENSE OF [facility] Medical History (Updated 02/08/23 @ 10:18 by Michelle Sanchez MD) Renal cyst Asthma exacerbation Annual physical exam Renal calculi Abscess of nipple, left On beta saniya at home History of anemia IBS (irritable bowel syndrome) GERD (gastroesophageal reflux disease) History of memory loss Elevated cholesterol HTN (hypertension) Asthma Colon cancer screening Seborrheic keratosis Knee pain, right Gastric ulcer Type 2 diabetes mellitus with hyperglycemia Tobacco abuse Obesity (BMI 30-39.9) Otitis externa Osteopenia Illiterate Osteoarthritis Surgical History History of arthroscopy of left knee Hx of section History of hysterectomy H/O colonoscopy with polypectomy History of esophagogastroduodenoscopy (EGD) H/O cystoscopy H/O oophorectomy History of total knee replacement Family History Father Prostate cancer Mother Brain tumor Social History Household Members: None Housing: Apartment Alcohol intake: never Patient Tobacco Use Status: Current everyday Tobacco user Tobacco use type: Cigarette Cigarettes Per Day: 5 Years Smoked: 2-3 cigarette a day e-Cigarette/Vaping Use: Never Used Second Hand Smoke Exposure: No service: No Current occupational status: disabled Cognitive needs: Yes Hearing needs: No Vision needs: No Questionnaire PHQ-9 Over the last 2 weeks, how often have you been bothered by any of the following problems? 1. Little interest or pleasure in doing things: not at all 2. Feeling down, depressed, or hopeless: not at all 3. Trouble falling or staying asleep, or sleeping too much: several days 4. Feeling tired or having little energy: several days 5. Poor appetite or overeating: several days 6. Feeling bad about yourself - or that you are a failure or have let yourself or your family down: not at all 7. Trouble concentrating on things, such as reading the newspaper or watching television: more than half the days 8. Moving or speaking so slowly that other people could have noticed. Or the opposite - being so fidgety or restless that you have been moving around a lot more than usual: not at all 9. Thoughts that you would be better off or of hurting yourself in some way: not at all Total score: 5 Depression Screening Interpretation: Positive 19597 - PHQ-9 Billing: Yes Source: Developed by Drs. Konstantin Langston, Luciano Bailey and colleagues, with an educational liya from [employer]. Thrive Questionnaire Date Thrive assessed: 07/06/22 AUDIT C Alcohol Use Questionnaire (AUDIT-C) 1. How often do you have a drink containing alcohol?: Never 3. How often do you have six or more drinks on one occasion?: Never Total Score: 0 AKILAH-7 AMB Questionnaire AKILAH-7 Date AKILAH - 7 assessed: 07/06/22 Source: Developed by Drs. Konstantin Langston, Luciano Bailey and colleagues, with an educational liya from [employer]. Physical exam (Primary Care) Vital Signs: Last Vital Signs Pulse 79 02/08/23 09:34 BP 152/88 H 02/08/23 09:34 Pulse Ox 97 02/08/23 09:34 Oxygen Delivery Method Room Air 02/08/23 09:34 BMI result Body Mass Index 39.4 Tobacco/Smoking Status: Tobacco use Status Tobacco use date assessed 07/06/22 02/08/23 09:35 Patient Tobacco Use Status Current everyday Tobacco 02/08/23 09:35 Tobacco use type Cigarette 02/08/23 09:35 e-Cigarette/Vaping Use Never Used 09/20/23 09:35 PHQ-9: PHQ-9 Score PHQ-9: Total score 5 02/08/23 09:50 Depression Screening Interpretation: Positive Thrive Assessment: Date of Thrive Assessment Date Thrive assessed 07/06/22 02/08/23 09:35 Const General: alert; No acute distress Eyes Conjunctivae: conjunctivae normal Resp Auscultation: clear to auscultation bilaterally Cardio Rate: regular rate Rhythm: regular rhythm GI Inspection: Yes normal to inspection Extrem General: Yes normal to inspection and No edema Results AMB Hemoglobin A1c AMB Hemoglobin A1c 6.5 % Last Edit by Judit Cherry CMA on 02/08/23 09 :51 Results Reviewed Results Reviewed: Laboratory Last Values Hgb A1c (Clinic) 6.5 % (4.0-6.0) H 02/08/23 09:36 Assessment and Plan Assessment & Plan (1) Type 2 diabetes mellitus with hyperglycemia: Comment: Dr. Mcadams Code(s): E11.65 - Type 2 diabetes mellitus with hyperglycemia Qualifiers: Diabetes mellitus skilled nursing insulin use: without skilled nursing use Qualified Code(s): E11.65 - Type 2 diabetes mellitus with hyperglycemia Plan: Decrease the amount of carbohydrate intake, pasta, bread, rice and potatoes are all sugar and that is aside from all the sweet stuff, remember that fruits are good but they are Sweet also. Hemoglobin A1c goal of less than 7.0. Patient is diet controlled (2) Tobacco abuse: Code(s): Z72.0 - Tobacco use Plan: Patient is strongly advised to stop smoking! (3) Obesity (BMI 30-39.9): Comment: Diet and exercise Code(s): E66.9 - Obesity, unspecified Plan: Diet and exercise weight continues to fluctuate (4) GERD (gastroesophageal reflux disease): Code(s): K21.9 - Gastro-esophageal reflux disease without esophagitis Qualifiers: Esophagitis presence: without esophagitis Qualified Code(s): K21.9 - Gastro-esophageal reflux disease without esophagitis Plan: Avoid the foods that causes that usually spicy foods, tomato products, juices, coffee, soda and foods that your sensitive to. After eating do not lie down, al low 3-4 hours before in lie down. And keep the head of bed above 30 degrees to avoid the acid from going up. (5) HTN (hypertension), benign: Code(s): I10 - Essential (primary) hypertension Plan: Continue with blood pressure medication. Decrease salt intake and exercise patient takes metoprolol 150 mg once a day lisinopril 40 mg once a day felodipine 10 mg once a day and hydrochlorothiazide 25 mg once a day- felodipine stopped due to LE swelling (6) High cholesterol: Code(s): E78.00 - Pure hypercholesterolemia, unspecified Plan: Avoid fried foods, chicken skin, eggs, butter margarine, pastries and meat. Be it pork or beef they have a lot of cholesterol LDL goal of less than 100 and triglyceride of less than 150 patient is not on cholesterol medication (7) Otitis externa: Code(s): H60.90 - Unspecified otitis externa, unspecified ear Orders: Orders AMB Hemoglobin A1c Today Z13.9 - Encounter for screening, unspecified Lipid Panel 3 Months E78.00 - Pure hypercholesterolemia, unspecified Comprehensive Met. Panel 3 Months E78.00 - Pure hypercholesterolemia, unspecified Medications: New atorvastatin 10 mg PO DAILY 90 tabs 3RF E78.00 - Pure hypercholesterolemia, unspecified [id number]-LN 3.5-10,000-1 mg/mL-unit/mL-% 4 drps otic (ear) right Q8H 10 mL 0RF 10 days H60.90 - Unspecified otitis externa, unspecified ear Refilled metoprolol succinate ER 150 mg (1.5 x 100 mg) PO DAILY 135 tabs 3RF 90 days I10 - Essential (primary) hypertension Discontinued felodipine ER Discontinued Reason: Doctor's Order 10 mg PO DAILY 90 tabs 3RF I10 - Essential (primary) hypertension Coding Level of Care Code Est Pt Level 4 (48229) Diagnoses Type 2 diabetes mellitus with hyperglycemia, without long-term current use of insulin E11.65 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
[2023-02-08 10:11] VITALS: BP 140/80
== END 2023-02-08 10:24 | disposition home or self-care (01) ==
PROVIDERS: PCP Internal Medicine; Visit Provider Internal Medicine
DX: E11.65 Type 2 diabetes mellitus with hyperglycemia (principal); K21.9 Gastro-esophageal reflux disease without esophagitis; I10 Essential (primary) hypertension; Z68.39 Body mass index [BMI] 39.0-39.9, adult; Z72.0 Tobacco use; E66.9 Obesity, unspecified; E78.00 Pure hypercholesterolemia, unspecified
CPT/HCPCS: 83036; 99214

== ENCOUNTER 2023-02-16 08:03 | Outpatient (AMB) | payer MEDICARE, MEDICAID, SELFPAY ==
--- NOTE | 2023-02-16 08:16 | MHC.OFFVIS ---
Intake Vital Signs 02/16/23 08:22 Height 4 ft 11 in Weight 193 lb BMI 39.0 BP 168/78 H Blood Pressure Location Lt brachial Position Sitting Pulse 43 L Intake Visit Reasons: 6 Month f/u Intake Note: Patient follow up Patient cc: acid reflex with burning sensation, no appetite, and denies any other GI issues. 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 The famotidine is controlling the GERD and the senna and the colace are agreeing with her and moving her bowels. ROV 6 mos. (2) Irritable bowel syndrome with both constipation and diarrhea: Code(s): K58.2 - Mixed irritable bowel syndrome (3) Illiterate: Code(s): Z55.0 - Illiteracy and low-level literacy Medications: Refilled famotidine 40 mg PO BID 30 d ays 60 tabs 6RF K21.9 - Gastro-eso phageal reflux dis ease without esoph agitis sennosides (senna) 17.2 mg (2 x 8.6 m g) PO BEDTIME 30 d ays 60 caps 6RF co nstipation docusate sodium (C olace) 100 mg PO .DAILY WITH FOOD 30 days 30 caps 6RF K58.2 - Mixed irri table bowel syndro me TODAY'S VISIT Prydeinig #dtr translates per pt request She is doing great overall. She will have occasional breakthrough GERD, and we discuss GERD trigger foods - she really likes tomatoes! She also will have occasional incidents where she eats too quickly and then she can't swallow and it will come out of her nose and mouth. The famotidine is controlling the GERD and the senna and the colace are agreeing with her and moving her bowels. ROV 6 mos. [facility] Medical History (Updated 02/16/23 @ 14:46 by ARELY Green) Irritable bowel syndrome with both constipation and diarrhea Renal cyst Asthma exacerbation Annual physical exam Renal calculi Abscess of nipple, left On beta saniya at home History of anemia IBS (irritable bowel syndrome) GERD (gastroesophageal reflux disease) History of memory loss Elevated cholesterol HTN (hypertension) Asthma Colon cancer screening Seborrheic keratosis Knee pain, right Gastric ulcer Type 2 diabetes mellitus with hyperglycemia Tobacco abuse Obesity (BMI 30-39.9) Otitis externa Osteopenia Illiterate Osteoarthritis Surgical History History of arthroscopy of left knee Hx of section History of hysterectomy H/O colonoscopy with polypectomy History of esophagogastroduodenoscopy (EGD) H/O cystoscopy H/O oophorectomy History of total knee replacement Family History Father Prostate cancer Mother Brain tumor Social History Household Members: None Housing: Apartment Alcohol intake: never Patient Tobacco Use Status: Current everyday Tobacco user Tobacco use type: Cigarette Cigarettes Per Day: 5 Years Smoked: 2-3 cigarette a day e-Cigarette/Vaping Use: Never Used Second Hand Smoke Exposure: No service: No Current occupational status: disabled Cognitive needs: Yes Hearing needs: No Vision needs: No Review of Systems Const Denies fatigue, Denies fever(s), Denies night sweats, Denies poor appetite and Denies weight loss ENT Reports Normal hearing present, Denies dental pain, Denies dysphagia, Denies hearing loss, Denies mouth pain, Denies odynophagia, Denies throat swelling, Denies tongue swelling and Reports other (Dentition adequate) Card Reports no additional complaints Resp Reports no additional complaints GI Denies abdominal pain, Denies melena, Denies bloating, Denies hematochezia, Reports constipation, Denies GI cramping, Denies dysphagia, Denies excessive flatus, Denies early satiety, Reports heartburn, Denies diarrhea, Denies nausea, Denies odynophagia, Denies vomiting and Denies hematemesis Skin/Breast Denies pruritus, Denies lesions, Denies rash and Denies jaundice Neuro Reports Normal hearing present and Denies Abnormal speech present Endo Denies fatigue Aller/Immun Denies throat swelling and Denies tongue swelling Physical Exam Vital Signs: Last Vital Signs Pulse 43 L 02/16/23 08:22 BP 168/78 H 02/16/23 08:22 BMI result Body Mass Index 39.0 Const General: cooperative, no acute distress, well developed and well groomed Nutritional Appearance: well nourished and obese Orientation/consciousness: oriented to person, oriented to place and oriented to time Limitations: language barrier HEENT Head: Yes normocephalic and Yes atraumatic Eyes General: appearance normal, both eyes and all related structures Pupils: Equal, round and reactive pupils present Neck Neck: Yes normal visual inspection and Yes no lymphadenopathy Thyroid: Thyroid normal Resp Effort & Inspection: normal respiratory effort and able to speak in complete sentences Auscultation: clear to auscultation bilaterally Cardio Rate: regular rate Rhythm: regular rhythm Heart sounds: Normal, physiologic split S2 sound present Peripheral pulses: radial pulses present and posterior tibial pulses present GI Inspection: No distended, Yes Abdominal panniculus present and Yes obesity Palpation (GI): Soft to palpation, nontender, no guarding, not rigid and No hepatosplenomegaly present Percussion: Yes normal to percussion Auscultation: normal bowel sounds Rectal Exam - Female: deferred Skin General skin exam: no rashes or lesions noted, turgor normal, skin not dry, no jaundice, No spider nevi and no striae Rashes: no rashes Nails: normal Neuro General: oriented to person, oriented to place and oriented to time Cranial nerves: Yes Equal, round and reactive pupils present and Yes Normal hearing present Speech: No Abnormal speech present Extrem General: Yes normal to inspection, No clubbing, No cyanosis and No edema Psych Appearance: grossly normal and well kempt Mental Status: mental status grossly normal Speech and movement: Normal speech and movement present Affect: normal affect Attitude: cooperative Thought process: Normal thought process present and not confabulating Thought content: Normal thought content present Insight: Limited insight present (Psych) Judgement: Limited judgement present (Psych) Assessment & Plan Assessment & Plan (1) GERD (gastroesophageal reflux disease): Code(s): K21.9 - Gastro-esophageal reflux disease without esophagitis Qualifiers: Esophagitis presence: without esophagitis Qualified Code(s): K21.9 - Gastro-esophageal reflux disease without esophagitis Plan: Prydeinig #dtr translates per pt request She is doing great overall. She will have occasional breakthrough GERD, and we discuss GERD trigger foods - she really likes tomatoes! She also will have occasional incidents where she eats too quickly and then she can't swallow and it will come out of her nose and mouth. The famotidine is controlling the GERD and the senna and the colace are agreeing with her and moving her bowels. ROV 6 mos. (2) Constipation: Code(s): K59.00 - Constipation, unspecified Medications: Refilled docusate sodium (Colace) 100 mg PO .DAILY WITH FOOD 30 days 30 caps 6RF K58.2 - Mixed irritable bowel syndrome famotidine 40 mg PO BID 30 days 60 tabs 6RF K21.9 - Gastro-esophageal reflux disease without esophagitis sennosides (senna) 17.2 mg (2 x 8.6 mg) PO BEDTIME 90 days 180 caps 1RF constipation Coding Level of Care Code Est Pt Level 3 (07602) Diagnoses Gastroesophageal reflux disease without esophagitis K21.9 Esophagitis presence: without esophagitis Constipation K59.00
[2023-02-16 08:22] VITALS: BP 168/78; PULSE 43; BMI 39.0
== END 2023-02-16 09:00 | disposition home or self-care (01) ==
PROVIDERS: PCP Internal Medicine; Visit Provider Nurse Practitioner
DX: K21.9 Gastro-esophageal reflux disease without esophagitis (principal); K59.00 Constipation, unspecified
CPT/HCPCS: 99213

== ENCOUNTER → 2023-02-16 08:03 | Outpatient (BNVA) | payer MEDICARE, MEDICAID, SELFPAY | PROVIDERS: PCP Internal Medicine; Visit Provider Nurse Practitioner | DX: K21.9 Gastro-esophageal reflux disease without esophagitis (principal); K59.00 Constipation, unspecified | CPT/HCPCS: 99212 ==

== ENCOUNTER 2023-05-23 09:09 | Outpatient (REF) | payer OTHER, SELFPAY ==
[2023-05-23 11:15] LABS: Alanine Aminotransferase 10 U/L (0-31); Albumin Level 3.7 g/dL (3.5-5.0); Alkaline Phosphatase 68 U/L (39-117); Anion Gap 10 (12-20); Aspartate Amino Transferase 17 U/L (5-31); Bilirubin Total 0.3 mg/dL (0.0-1.0); Blood Urea Nitrogen 18 mg/dL (9-16); Calcium 9.1 mg/dL (8.4-10.2); Carbon Dioxide 31 mmol/L (22-29); Chloride 106 mmol/L (96-108); Cholesterol 144 mg/dL (<200); Estimated Glomerular Filt Rate 42; Glucose Random 134 mg/dL (60-115); HDL Cholesterol 54 mg/dL (>40); LDL Cholesterol Calculated 77 mg/dL (<100); Potassium 4.4 mmol/L (3.3-5.1); Sodium 143 mmol/L (135-145); Total Protein 6.8 g/dL (6.5-8.0); Triglycerides 65 mg/dL (<150)
== END 2023-05-23 09:10 | disposition home or self-care (01) ==
LOC: HO.LAB 09:09
PROVIDERS: PCP Internal Medicine; Visit Provider Internal Medicine
DX: E78.00 Pure hypercholesterolemia, unspecified (principal)
CPT/HCPCS: 36415; 80053; 80061

== ENCOUNTER 2023-05-31 09:41 | Outpatient (REF) | payer OTHER, SELFPAY ==
--- NOTE | ~2023-05-31 | US_ITS ---
EXAMINATION: US RETROPERITONEAL LIMITED (RENAL ONLY) CLINICAL INFORMATION: Calculus of kidney. COMPARISON: Renal ultrasound 05/30/2022 and 05/12/2021. CT abdomen and pelvis 08/10/2017. X-ray abdomen KUB 01/30/2017. TECHNIQUE: Real-time imaging of the kidneys. FINDINGS: RIGHT KIDNEY: 8.8 x 4.3 x 4.4 cm (SAG x AP x TRV). The kidney is normal in size, contour, and echogenicity. Renal cortical thickness is normal. No renal calculi or hydronephrosis. There is a simple 2.2 x 3.3 x 2.3 cm mid renal parapelvic cyst, a simple 2.6 x 2.2 x 2.3 cm lower pole cyst and a simple 1.3 x 0.8 x 1.5 cm upper pole cyst for which no imaging follow-up is recommended. LEFT KIDNEY: 8.1 x 4.5 x 4.6 cm (SAG x AP x TRV). The kidney is normal in size, contour, and echogenicity. Renal cortical thickness is normal. No renal calculi or hydronephrosis. There is a 1.7 x 1.2 x 1.2 cm simple mid renal cyst, a 0.5 x 0.3 x 0.5 cm simple mid renal cyst and a 0.5 x 0.8 x 0.6 cm simple lower pole cyst for which no imaging follow-up is recommended. US/US renal BI IMPRESSION: No renal calculi are demonstrated.
== END 2023-05-31 09:42 | disposition home or self-care (01) ==
LOC: HO.US 09:41
PROVIDERS: PCP Internal Medicine; Visit Provider Nurse Practitioner Family
DX: N20.0 Calculus of kidney (principal); N28.1 Cyst of kidney, acquired
CPT/HCPCS: 76775

== ENCOUNTER 2023-06-06 09:33 | Outpatient (AMB) | payer OTHER, SELFPAY ==
--- NOTE | 2023-06-06 09:34 | A.OFFVIS_ITS ---
Intake Intake Visit Reasons: 1yr follow up/US Intake Note: Patient is present for ultrasound follow up Urology Medication: none Blood thinner: none Marketing Strategy Analyst Required: Yes Marketing Strategy Analyst Name: TRISTIAN SQUIRES Accompanied by: Self / Same As Patient Allergies ibuprofen [From Motrin] Allergy (Unknown, Verified 06/06/23 09:41) GI UPSET felodipine Adverse Reaction (Intermediate, Verified 06/06/23 09:41) leg swelling Medication List - Last Reconciled 06/06/23 by SHERRIE Bhatia- albuterol sulfate 2.5 mg (3 mL) inhalation Q4-6H PRN 90 days albuterol sulfate 90 mcg/actuation 2 inhalations PO Q4H PRN alendronate 70 mg PO QWEEK atorvastatin 10 mg PO DAILY blood pressure monitor (Blood Pressure Kit) As directed cane As directed celecoxib (Celebrex) 200 mg PO DAILY cholecalciferol (vitamin D3) 50 mcg PO DAILY 90 days clonidine HCl 0.1 mg PO TID 90 days lili.stocking,knee,reg,xlrg As directed 20-30 mm HG diclofenac sodium 75 mg PO BID PRN docusate sodium (Colace) 100 mg PO .DAILY WITH FOOD 30 days famotidine 40 mg PO BID 30 days fluticasone propionate 50 mcg/actuation (Flonase Allergy Relief) 1 spray intranasal DAILY fluticasone propionate 110 mcg/actuation 2 inhalations inhalation BID 90 days hydrochlorothiazide 25 mg PO DAILY lisinopril 40 mg PO DAILY metoprolol succinate ER 150 mg (1.5 x 100 mg) PO DAILY 90 days rxeidtso-vyjamogee-PA 3.5-10,000-1 mg/mL-unit/mL-% 4 drps otic (ear) right Q8H 10 days pyridoxine (vitamin B6) 100 mg PO DAILY sennosides (senna) 17.2 mg (2 x 8.6 mg) PO BEDTIME 90 days Shower Chair As directed HPI HPI Comments History of Present Illness Details Bhavana is a pleasant Maltese-speaking 67-year-old female patient of Dr. Sanchez. She has a past medical history of irritable bowel syndrome, renal cysts, asthma, renal calculi, anemia, hypercholesteremia, hypertension, type 2 diabetes, obesity, osteopenia, and osteoarthritis. She is being follow-up on today via telehealth for her longstanding history of nephrolithiasis and bilateral renal cysts. Recent renal imaging results reviewed with the patient today. Bilateral kidneys are normal in size, contour, and echogenicity. No nephrolithiasis or hydronephrosis noted. Bilateral renal cysts are noted for which no imaging follow-up is recommended per radiology report. In discussion with the patient today she discusses her recent stress of her grandson being in the ICU. She discusses her upcoming appointment next week with her PCP for ongoing lower abdominal cramping she has been experiencing. She otherwise denies any bothersome urinary issues. When asked she denies urinary urgency, urinary frequency, incontinence, nocturia, hematuria, dysuria, foul smelling urine, changes to urinary stream, flank pain, fever, and or chills. She is happy with her current voiding parameters. [facility] Medical History Irritable bowel syndrome with both constipation and diarrhea Renal cyst Asthma exacerbation Annual physical exam Renal calculi Abscess of nipple, left On beta saniya at home History of anemia IBS (irritable bowel syndrome) GERD (gastroesophageal reflux disease) History of memory loss Elevated cholesterol HTN (hypertension) Asthma Colon cancer screening Seborrheic keratosis Knee pain, right Gastric ulcer Type 2 diabetes mellitus with hyperglycemia Tobacco abuse Obesity (BMI 30-39.9) Otitis externa Osteopenia Illiterate Osteoarthritis Surgical History History of arthroscopy of left knee Hx of section History of hysterectomy H/O colonoscopy with polypectomy History of esophagogastroduodenoscopy (EGD) H/O cystoscopy H/O oophorectomy History of total knee replacement Family History Father Prostate cancer Mother Brain tumor Social History Household Members: None Housing: Apartment Alcohol intake: never Patient Tobacco Use Status: Current everyday Tobacco user Tobacco use type: Cigarette Cigarettes Per Day: 5 Years Smoked: 2-3 cigarette a day e-Cigarette/Vaping Use: Never Used Second Hand Smoke Exposure: No service: No Current occupational status: disabled Cognitive needs: Yes Hearing needs: No Vision needs: No Review of Systems Const Reports as per HPI Eyes Reports no additional complaints ENT Reports no additional complaints Card Reports as per HPI Resp Reports as per HPI GI Reports as per HPI Reports as per HPI Musc Reports as per HPI Neuro Reports no additional complaints Psych Reports no additional complaints Endo Reports as per HPI Thiago/Lymph Reports no additional complaints Aller/Immun Reports no additional complaints Physical Exam Const General: cooperative Resp Effort & Inspection: able to speak in complete sentences Psych Attitude: cooperative Thought process: Normal thought process present Thought content: Normal thought content present Insight: Fair insight present (Psych) Judgement: Fair judgement present (Psych) Results Reviewed Results Reviewed: Date of Service: 05/31/23 EXAMINATION: US RETROPERITONEAL LIMITED (RENAL ONLY) FINDINGS: RIGHT KIDNEY: 8.8 x 4.3 x 4.4 cm (SAG x AP x TRV). The kidney is normal in size, contour, and echogenicity. Renal cortical thickness is normal. No renal calculi or hydronephrosis. There is a simple 2.2 x 3.3 x 2.3 cm mid renal parapelvic cyst, a simple 2.6 x 2.2 x 2.3 cm lower pole cyst and a simple 1.3 x 0.8 x 1.5 cm upper pole cyst for which no imaging follow-up is recommended. LEFT KIDNEY: 8.1 x 4.5 x 4.6 cm (SAG x AP x TRV). The kidney is normal in size, contour, and echogenicity. Renal cortical thickness is normal. No renal calculi or hydronephrosis. There is a 1.7 x 1.2 x 1.2 cm simple mid renal cyst, a 0.5 x 0.3 x 0.5 cm simple mid renal cyst and a 0.5 x 0.8 x 0.6 cm simple lower pole cyst for which no imaging follow-up is recommended. IMPRESSION: No renal calculi are demonstrated. Assessment & Plan Assessment & Plan (1) Renal calculi: Code(s): N20.0 - Calculus of kidney Plan Stable; patient with no urological issues at this time. Ultrasound results reviewed with patient; stable. Patient reports compliance with adequate amount of daily fluid intake and Vitamin B6; continue. Renal ultrasound in 1 year Follow-up in 1 year with imaging to be completed prior; or sooner with any issues, concerns, and or questions. Orders: Orders US renal BI 364 Days N20.0 - Calculus of kidney Patient Instructions: The patient had an opportunity to ask questions regarding the treatment plan. All questions were answered. Physical exam, labs, and imaging were discussed and reviewed in detail. As well as risks, benefits, and discussion of treatment choices. No major barriers to understanding were identified. The patient expressed understanding and agreement with the above treatment plan. The patient was made aware they should contact our office by phone for worsening of their current condition, the appearance of new symptoms, or with any questions or concerns. Compliance is encouraged with any medications and follow up testing that is ordered. It is a privilege to be allowed the opportunity to participate in? your urological care.? Again, if you have any questions or concerns If you have any questions or concerns please do not hesitate to contact me. The office is [phone]. This note is constructed using voice recognition software. While every effort has been made to ensure accuracy biosecurity officer errors may have been included. Yours sincerely, DAPHNE Bhatia Telehealth Telehealth Location of provider rendering services: practice address Location of patient: address on file Patient Identification confirmed using: Name, : Yes Telehealth method: voice only Patient verbally consented to treatment: Yes Patient verbally consented to billing insurance company: Yes Patient informed of any privacy concerns related to visit: Yes Minutes spent on Phone/Video with Pt.: 15 Coding Level of Care Code Tele Est Pt Level 3 (25234) Diagnoses Renal calculi N20.0
== END 2023-06-06 10:12 | disposition home or self-care (01) ==
LOC: HO.HUSH 09:33
PROVIDERS: PCP Internal Medicine; Visit Provider Nurse Practitioner Family
DX: N20.0 Calculus of kidney (principal)
CPT/HCPCS: 99213

== ENCOUNTER → 2023-06-06 09:33 | Outpatient (BNVA) | payer OTHER, SELFPAY | PROVIDERS: PCP Internal Medicine; Visit Provider Nurse Practitioner Family ==

== ENCOUNTER 2023-06-12 09:14 | Outpatient (AMB) | payer OTHER, MEDICAID, SELFPAY ==
--- NOTE | 2023-06-12 09:15 | A.OFFPC_ITS ---
Vital Signs 06/12/23 09:16 Height 4 ft 11 in Weight 196 lb 0.8 oz BMI 39.6 BP 146/82 H Blood Pressure Location Lt brachial Position Sitting Pulse 92 Pulse Source Pulse Oximeter Pulse Oximetry (%) 100 Oxygen Delivery Method Room Air Intake Visit Reasons: 4 Months F/U Internet Manager Required: No Allergies ibuprofen [From Motrin] Allergy (Unknown, Verified 06/12/23 09:16) GI UPSET felodipine Adverse Reaction (Intermediate, Verified 06/12/23 09:16) leg swelling Medication List - Last Reconciled 06/12/23 by Michelle Sanchez MD albuterol sulfate 2.5 mg (3 mL) inhalation Q4-6H PRN 90 days albuterol sulfate 90 mcg/actuation 2 inhalations PO Q4H PRN alendronate 70 mg PO QWEEK atorvastatin 10 mg PO DAILY blood pressure monitor (Blood Pressure Kit) As directed cane As directed celecoxib (Celebrex) 200 mg PO DAILY cholecalciferol (vitamin D3) 50 mcg PO DAILY 90 days clonidine HCl 0.1 mg PO TID 90 days lili.stocking,knee,reg,xlrg As directed 20-30 mm HG diclofenac sodium 75 mg PO BID PRN docusate sodium (Colace) 100 mg PO .DAILY WITH FOOD 30 days famotidine 40 mg PO BID 30 days fluticasone propionate 50 mcg/actuation (Flonase Allergy Relief) 1 spray intranasal DAILY fluticasone propionate 110 mcg/actuation 2 inhalations inhalation BID 90 days hydrochlorothiazide 25 mg PO DAILY lisinopril 40 mg PO DAILY metoprolol succinate ER 150 mg (1.5 x 100 mg) PO DAILY 90 days huenskyk-diypblvzs-JQ 3.5-10,000-1 mg/mL-unit/mL-% 4 drps otic (ear) right Q8H 10 days pyridoxine (vitamin B6) 100 mg PO DAILY sennosides (senna) 17.2 mg (2 x 8.6 mg) PO BEDTIME 90 days Shower Chair As directed Tobacco use date assessed: 06/12/23 Fall risk assessment: No Falls in past year Last assessed Fall Risk: 06/12/23 Dental Screening Dental Screen Date: 06/12/23 Did you have a dental visit in the last 12 months?: No Did you have a dental problem in the last 6 months where you did not have access to dental care?: No HPI 4 Months F/U HPI Details 67-year-old Obese female smoker with sheela betes mellitus GERD hypertension hypercholesterolemia coming in for follow-up. Last seen in [facility] 2022. Mammograms up-to-date bone density is up-to-date and colonoscopy is up-to-date. Review of the notes has followed up with urology due to the history of renal calculi. Patient also sees Gastroenterology for a six-month follow-up for the GERD famotidine controlling constipation has the senna and Colace [facility] Medical History Irritable bowel syndrome with both constipation and diarrhea Renal cyst Asthma exacerbation Annual physical exam Renal calculi Abscess of nipple, left On beta saniya at home History of anemia IBS (irritable bowel syndrome) GERD (gastroesophageal reflux disease) History of memory loss Elevated cholesterol HTN (hypertension) Asthma Colon cancer screening Seborrheic keratosis Knee pain, right Gastric ulcer Type 2 diabetes mellitus with hyperglycemia Tobacco abuse Obesity (BMI 30-39.9) Otitis externa Osteopenia Illiterate Osteoarthritis Surgical History History of arthroscopy of left knee Hx of section History of hysterectomy H/O colonoscopy with polypectomy History of esophagogastroduodenoscopy (EGD) H/O cystoscopy H/O oophorectomy History of total knee replacement Family History Father Prostate cancer Mother Brain tumor Social History Household Members: None Housing: Apartment Alcohol intake: never Patient Tobacco Use Status: Current everyday Tobacco user Tobacco use type: Cigarette Cigarettes Per Day: 5 Years Smoked: 2-3 cigarette a day e-Cigarette/Vaping Use: Never Used Second Hand Smoke Exposure: No service: No Current occupational status: disabled Cognitive needs: Yes Hearing needs: No Vision needs: No Questionnaire PHQ-9 Over the last 2 weeks, how often have you been bothered by any of the following problems? 1. Little interest or pleasure in doing things: not at all 2. Feeling down, depressed, or hopeless: not at all 3. Trouble falling or staying asleep, or sleeping too much: not at all 4. Feeling tired or having little energy: not at all 5. Poor appetite or overeating: not at all 6. Feeling bad about yourself - or that you are a failure or have let yourself or your family down: not at all 7. Trouble concentrating on things, such as reading the newspaper or watching television: not at all 8. Moving or speaking so slowly that other people could have noticed. Or the opposite - being so fidgety or restless that you have been moving around a lot more than usual: not at all 9. Thoughts that you would be better off or of hurting yourself in some way: not at all Total score: 0 Depression Screening Interpretation: Negative Depression Screening Done: Yes Source: Developed by Drs. Konstantin Langston, Luciano Bailey and colleagues, with an educational liya from [employer]. Thrive Questionnaire Date Thrive assessed: 06/12/23 AUDIT C Alcohol Use Questionnaire (AUDIT-C) 1. How often do you have a drink containing alcohol?: Never 3. How often do you have six or more drinks on one occasion?: Never Total Score: 0 AKILAH-7 AMB Questionnaire AKILAH-7 Date AKILAH - 7 assessed: 06/12/23 Feeling nervous, anxious, or on edge: 0 = Not at all Not being able to stop or control worryin = Not at all Worrying too much about different things: 0 = Not at all Trouble relaxin = Not at all Being so restless that it is hard to sit still: 0 = Not at all Becoming easily annoyed or irritable: 0 = Not at all Feeling afraid as if something awful might happen: 0 = Not at all Total AKILAH-7 score (0-4 normal; 5-9 mild; 10-14 moderate; 15-21 severe): 0 Source: Developed by Drs. Konstantin Langston, Luciano Bailey and colleagues, with an educational liya from [employer]. Physical exam (Primary Care) Vital Signs: Last Vital Signs Pulse 92 06/12/23 09:16 BP 146/82 H 06/12/23 09:16 Pulse Ox 100 06/12/23 09:16 Oxygen Delivery Method Room Air 06/12/23 09:16 BMI result Body Mass Index 39.6 Tobacco/Smoking Status: Tobacco use Status Tobacco use date assessed 06/12/23 06/12/23 09:17 Patient Tobacco Use Status Current everyday Tobacco 06/12/23 09:17 Tobacco use type Cigarette 06/12/23 09:17 e-Cigarette/Vaping Use Never Used 06/12/23 09:17 PHQ-9: PHQ-9 Score PHQ-9: Total score 0 06/12/23 09:32 Depression Screening Interpretation: Negative Thrive Assessment: Date of Thrive Assessment Date Thrive assessed 06/12/23 06/12/23 09:17 Const General: alert; No acute distress Eyes Conjunctivae: conjunctivae normal Resp Auscultation: clear to auscultation bilaterally Cardio Rate: regular rate Rhythm: regular rhythm GI Inspection: Yes normal to inspection Extrem General: Yes normal to inspection and No edema Office Procedures Flu Questionnaire Does the patient have a severe egg allergy?: No Does the patient have severe life threatening allergies?: No Does the patient have a fever or illness today?: No Has the patient ever had Guillain-[place] Syndrome?: No Has the patient ever had any past reaction to a flu shot?: No Results AMB Hemoglobin A1c AMB Hemoglobin A1c 6.5 % Last Edit by VIRGIE Caal on 06/12/23 09:33 Immunizations flu vacc [id number] 6mos up(PF) 60 mcg(15 mcgx4)/0.5 mL IM syringe Performing Provider: Michelle Sanchez MD Performing Location: [facility] Administered by: VIRGIE Caal on 06/12/23 09:49 Dose Route Admin Location Dispensed Lot Number Expiration Date NDC Claims Vice President 0.5 mL IM Left Deltoid 0.5 mL [id number] 11/19/23 [id number] studentSN VIS Given Date VIS Provided VIS Publication Date 06/12/23 Single Vaccine 20 Eligibility Eligibility Date Funding Source Not VFC Eligible 06/12/23 Private Results Reviewed Results Reviewed: Laboratory Last Values Hgb A1c (Clinic) 6.5 % (4.0-6.0) H 06/12/23 09:28 Assessment and Plan Assessment & Plan (1) Type 2 diabetes mellitus with hyperglycemia: Comment: Dr. [place] Code(s): E11.65 - Type 2 diabetes mellitus with hyperglycemia Qualifiers: Diabetes mellitus assisted insulin use: without intermediate accountant use Qualified Code(s): E11.65 - Type 2 diabetes mellitus with hyperglycemia Plan: Decrease the amount of carbohydrate intake, pasta, bread, rice and potatoes are all sugar and that is aside from all the sweet stuff, remember that fruits are good but they are Sweet also. Hemoglobin A1c goal of less than 7.0 patient is on diet control. Discussed my concern on taking NSAID as the renalfunctionm is getting worse. advise daughter concern on NSAID (2) Tobacco abuse: Code(s): Z72.0 - Tobacco use Plan: Strongly advised to stop smoking! (3) Obesity (BMI 30-39.9): Comment: Diet and exercise Code(s): E66.9 - Obesity, unspecified Plan: Diet and exercise (4) GERD (gastroesophageal reflux disease): Code(s): K21.9 - Gastro-esophageal reflux disease without esophagitis Qualifiers: Esophagitis presence: without esophagitis Qualified Code(s): K21.9 - Gastro-esophageal reflux disease without esophagitis Plan: Avoid the foods that causes that usually spicy foods, tomato products, juices, coffee, soda and foods that your sensitive to. After eating do not lie down, allow 3-4 hours before in lie down. And keep the head of bed above 30 degrees to avoid the acid from going up. (5) High cholesterol: Code(s): E78.00 - Pure hypercholesterolemia, unspecified Plan: Avoid fried foods, chicken skin, eggs, butter margarine, pastries and meat. Be it pork or beef they have a lot of cholesterol LDL goal of less than 100 and triglyceride of less than 150 patient is on atorvastatin 10 mg once a day (6) HTN (hypertension), benign: Code(s): I10 - Essential (primary) hypertension Plan: Continue with blood pressure medication. Decrease salt intake and exercise patient takes hydrochlorothiazide 25 mg once a day , metoprolol 150 mg once a day and lisinopril 40 mg once a day (7) Asthma: Comment: Code(s): J45.909 - Unspecified asthma, uncomplicated Qualifiers: Asthma complication type: uncomplicated Asthma persistence: intermittent Asthma severity: mild Qualified Code(s): J45.20 - Mild intermittent asthma, uncomplicated Plan: Stop smoking! (8) CKD (chronic kidney disease): Code(s): N18.9 - Chronic kidney disease, unspecified Plan: Patient has diabetes mellitus and hypertension and advised to monitor blood pressure for now as it is elevated today. Patient does have 3 medications for this. Concern about renal function noted GFR to be below 60 and concern about the NSAIDs on the list of medications. Advised to discontinue 1 of them. Take them with food only p.r.n. and may try Tylenol for safety. Repeat testing advised in 3 months. Orders: Orders AMB Hemoglobin A1c Today E11.65 - Type 2 diabetes mellitus with hyperglycemia Influenza [id number] Immunization Today Z23 - Encounter for immunization Basic Metabolic Panel 3 Months N18.9 - Chronic kidney disease, unspecified Hemoglobin A1c 3 Months N18.9 - Chronic kidney disease, unspecified Medications: Discontinued diclofenac sodium Discontinued Reason: Doctor's Order 75 mg PO BID PRN 60 tabs 0RF for pain Coding Level of Care Code Est Pt Level 4 (33724) Diagnoses Type 2 diabetes mellitus with hyperglycemia, without long-term current use of insulin E11.65 Diabetes mellitus intermediate accountant insulin use: without assisted use Tobacco abuse Z72.0 Obesity (BMI 30-39.9) E66.9 Gastroesophageal reflux disease without esophagitis K21.9 Esophagitis presence: without esophagitis High cholesterol E78.00 HTN (hypertension), benign I10 Mild intermittent asthma without complication J45.20 Asthma complication type: uncomplicated Asthma persistence: intermittent Asthma severity: mild CKD (chronic kidney disease) N18.9
[2023-06-12 09:16] VITALS: BP 146/82; PULSE 92; O2SAT 100; BMI 39.6
== END 2023-06-12 09:51 | disposition home or self-care (01) ==
PROVIDERS: PCP Internal Medicine; Visit Provider Internal Medicine
DX: E11.65 Type 2 diabetes mellitus with hyperglycemia (principal); Z23 Encounter for immunization
CPT/HCPCS: 83036; 90471; 90686; 99214

== ENCOUNTER 2023-08-25 08:25 | Outpatient (REF) | payer OTHER, MEDICAID, SELFPAY ==
[2023-08-25 09:31] LABS: Estimated Average Glucose 140 mg/dL; Hemoglobin A1C 151.7741 umol/L; Hemoglobin A1c % 6.5 % (<6.0)
[2023-08-25 09:50] LABS: Anion Gap 12 (12-20); Blood Urea Nitrogen 9 mg/dL (9-16); Carbon Dioxide 30 mmol/L (22-29); Chloride 105 mmol/L (96-108); Estimated Glomerular Filt Rate 53; Glucose Random 137 mg/dL (60-115); Sodium 143 mmol/L (135-145)
== END 2023-08-25 08:26 | disposition home or self-care (01) ==
LOC: HO.LAB 08:25
PROVIDERS: PCP Internal Medicine; Visit Provider Internal Medicine
DX: N18.9 Chronic kidney disease, unspecified (principal)
CPT/HCPCS: 36415; 80048; 83036

== ENCOUNTER 2023-09-14 14:26 | Outpatient (AMB) | payer OTHER, MEDICAID, SELFPAY ==
[2023-09-14 14:27] VITALS: BP 138/80; PULSE 53; O2SAT 97; BMI 40.4
--- NOTE | 2023-09-14 14:27 | A.OFFPC_ITS ---
Vital Signs 09/14/23 14:27 Height 4 ft 11 in Weight 200 lb BMI 40.4 BP 138/80 Blood Pressure Location Lt brachial Position Sitting Pulse 53 Pulse Source Pulse Oximeter Pulse Oximetry (%) 97 Oxygen Delivery Method Room Air Intake Visit Reasons: Chronickidneydisease,diabetesmellitus,hypertension Salvage Machine Operator Required: No Allergies ibuprofen [From Motrin] Allergy (Unknown, Verified 09/14/23 14:37) GI UPSET felodipine Adverse Reaction (Intermediate, Verified 09/14/23 14:37) leg swelling Medication List - Last Reconciled 09/14/23 by Michelle Sanchez MD albuterol sulfate 2.5 mg (3 mL) inhalation Q4-6H PRN 90 days albuterol sulfate 90 mcg/actuation 2 inhalations PO Q4H PRN alendronate 70 mg PO QWEEK atorvastatin 10 mg PO DAILY blood pressure monitor (Blood Pressure Kit) As directed cane As directed cholecalciferol (vitamin D3) 50 mcg PO DAILY 90 days clonidine HCl 0.1 mg PO TID 90 days lili.stocking,knee,reg,xlrg As directed 20-30 mm HG famotidine 40 mg PO BID fluticasone propionate 110 mcg/actuation 2 inhalations inhalation BID 90 days fluticasone propionate 50 mcg/actuation (Flonase Allergy Relief) 1 spray intranasal DAILY hydrochlorothiazide 25 mg PO DAILY lisinopril 40 mg PO DAILY metoprolol succinate ER 150 mg (1.5 x 100 mg) PO DAILY 90 days pyridoxine (vitamin B6) 100 mg PO DAILY sennosides (senna) 17.2 mg (2 x 8.6 mg) PO BEDTIME 90 days Shower Chair As directed Tobacco use date assessed: 09/14/23 Fall risk assessment: No Falls in past year Last assessed Fall Risk: 09/14/23 Dental Screening Dental Screen Date: 06/12/23 HPI Chronickidneydisease,diabetesmellitus,hypertension HPI Details 68-year-old morbidly obese female smoker with controlled diabetes mellitus GERD hypercholesterolemia hypertension chronic kidney disease coming in for follow-up. Last seen in May 2023. Patient's mammogram is up-to-date December 2022 bone density up-to-date October 2022 and colonoscopy is up-to-date October 2019 [facility] Medical History Irritable bowel syndrome with both constipation and diarrhea Renal cyst Asthma exacerbation Annual physical exam Renal calculi Abscess of nipple, left On beta saniya at home History of anemia IBS (irritable bowel syndrome) GERD (gastroesophageal reflux disease) History of memory loss Elevated cholesterol HTN (hypertension) Asthma Colon cancer screening Seborrheic keratosis Knee pain, right Gastric ulcer Type 2 diabetes mellitus with hyperglycemia Tobacco abuse Obesity (BMI 30-39.9) Otitis externa Osteopenia Illiterate Osteoarthritis Surgical History History of arthroscopy of left knee Hx of section History of hysterectomy H/O colonoscopy with polypectomy History of esophagogastroduodenoscopy (EGD) H/O cystoscopy H/O oophorectomy History of total knee replacement Family History Father Prostate cancer Mother Brain tumor Social History Household Members: None Housing: Apartment Alcohol intake: never Patient Tobacco Use Status: Current everyday Tobacco user Tobacco use type: Cigarette Cigarettes Per Day: 5 Years Smoked: 2-3 cigarette a day e-Cigarette/Vaping Use: Never Used Second Hand Smoke Exposure: No service: No Current occupational status: disabled Cognitive needs: Yes Hearing needs: No Vision needs: No Questionnaire Thrive Questionnaire Date Thrive assessed: 06/12/23 AUDIT C Alcohol Use Questionnaire (AUDIT-C) 1. How often do you have a drink containing alcohol?: Never 3. How often do you have six or more drinks on one occasion?: Never Total Score: 0 AKILAH-7 AMB Questionnaire AKILAH-7 Date AKILAH - 7 assessed: 06/12/23 Source: Developed by Drs. Konstantin Langston, Saskia Sales, Luciano Leach and colleagues, with an educational liya from [employer]. Physical exam (Primary Care) Vital Signs: Last Vital Signs Pulse 53 09/14/23 14:27 BP 138/80 09/14/23 14:27 Pulse Ox 97 09/14/23 14:27 Oxygen Delivery Method Room Air 09/14/23 14:27 BMI result Body Mass Index 40.4 Tobacco/Smoking Status: Tobacco use Status Tobacco use date assessed 09/14/23 09/14/23 14:28 Patient Tobacco Use Status Current everyday Tobacco 09/14/23 14:28 Tobacco use type Cigarette 09/14/23 14:28 e-Cigarette/Vaping Use Never Used 09/14/23 14:28 Thrive Assessment: Date of Thrive Assessment Date Thrive assessed 06/12/23 09/14/23 14:28 Const General: alert; No acute distress Eyes Conjunctivae: conjunctivae normal Resp Auscultation: clear to auscultation bilaterally Cardio Rate: regular rate Rhythm: regular rhythm GI Inspection: Yes normal to inspection Extrem General: Yes normal to inspection and No edema Assessment and Plan Assessment & Plan (1) Type 2 diabetes mellitus with hyperglycemia: Comment: Dr. Mcadams Code(s): E11.65 - Type 2 diabetes mellitus with hyperglycemia Qualifiers: Diabetes mellitus assisted insulin use: without assisted use Qualified Code(s): E11.65 - Type 2 diabetes mellitus with hyperglycemia Plan: Decrease the amount of carbohydrate intake, pasta, bread, rice and potatoes are all sugar and that is aside from all the sweet stuff, remember that fruits are good but they are Sweet also. Hemoglobin A1c goal of less than 7.0. Patient on diet control. (2) Tobacco abuse: Code(s): Z72.0 - Tobacco use Plan: Patient is strongly advised to stop smoking! (3) Obesity (BMI 30-39.9): Comment: Diet and exercise Code(s): E66.9 - Obesity, unspecified Plan: Diet and exercise (4) GERD (gastroesophageal reflux disease): Code(s): K21.9 - Gastro-esophageal reflux disease without esophagitis Qualifiers: Esophagitis presence: without esophagitis Qualified Code(s): K21.9 - Gastro-esophageal reflux disease without esophagitis Plan: Avoid the foods that causes that usually spicy foods, tomato products, juices, coffee, soda and foods that your sensitive to. After eating do not lie down, allow 3-4 hours before in lie down. And keep the head of bed above 30 degrees to avoid the acid from going up. (5) High cholesterol: Code(s): E78.00 - Pure hypercholesterolemia, unspecified Plan: Avoid fried foods, chicken skin, eggs, butter margarine, pastries and meat. Be it pork or beef they have a lot of cholesterol LDL goal of less than 100 and triglyceride of less than 150 on atorvastatin 10 mg once a day (6) HTN (hypertension), benign: Code(s): I10 - Essential (primary) hypertension Plan: Continue with blood pressure medication. Decrease salt intake and exercise patient on clonidine 0.1 mg 3 times a day hydrochlorothiazide 25 mg once a day lisinopril 40 mg once a day and metoprolol 150 mg once a day. Medications: Refilled albuterol sulfate 2.5 mg (3 mL) inhalation Q4-6H 90 days PRN 180 mL 0RF shortness of breath or wheezing J45.20 - Mild intermittent asthma, uncomplicated fluticasone propionate 110 mcg/actuation 2 inhalations inhalation BID 90 days 3 ea 3RF R79.89 - Other specified abnormal findings of blood chemistry albuterol sulfate 90 mcg/actuation 2 inhalations PO Q4H PRN 8.5 grams 0RF bronchospasm J45.20 - Mild intermittent asthma, uncomplicated Discontinued celecoxib (Celebrex) Discontinued Reason: Doctor's Order 200 mg PO DAILY 90 caps 1RF M75.21 - Bicipital tendinitis, right shoulder lgjbgisa-cuxradlpu-EA 3.5-10,000-1 mg/mL-unit/mL-% Discontinued Reason: Doctor's Order 4 drps otic (ear) right Q8H 10 days 10 mL 0RF H60.90 - Unspecified otitis externa, unspecified ear docusate sodium (Colace) Discontinued Reason: Doctor's Order 100 mg PO .DAILY WITH FOOD 30 days 30 caps 6RF K58.2 - Mixed irritable bowel syndrome Coding Level of Care Code Est Pt Level 4 (92468) Diagnoses Type 2 diabetes mellitus with hyperglycemia, without long-term current use of insulin E11.65 Diabetes mellitus intermediate card tender insulin use: without assisted use Tobacco abuse Z72.0 Obesity (BMI 30-39.9) E66.9 Gastroesophageal reflux disease without esophagitis K21.9 Esophagitis presence: without esophagitis High cholesterol E78.00 HTN (hypertension), benign I10
== END 2023-09-14 15:03 | disposition home or self-care (01) ==
PROVIDERS: PCP Internal Medicine; Visit Provider Internal Medicine
DX: E11.65 Type 2 diabetes mellitus with hyperglycemia (principal); Z68.41 Body mass index [BMI] 40.0-44.9, adult; E66.9 Obesity, unspecified; Z72.0 Tobacco use; K21.9 Gastro-esophageal reflux disease without esophagitis; E78.00 Pure hypercholesterolemia, unspecified; I10 Essential (primary) hypertension
CPT/HCPCS: 99214

== ENCOUNTER 2024-02-05 14:57 | Outpatient (AMB) | payer OTHER, MEDICAID, SELFPAY ==
--- NOTE | 2024-02-05 15:44 | MHC.PC.OV ---
Intake Visit Reasons: SAWV Allergies ibuprofen [From Motrin] Allergy (Unknown, Verified 09/14/23 14:37) GI UPSET felodipine Adverse Reaction (Intermediate, Verified 09/14/23 14:37) leg swelling Tobacco use date assessed: 09/14/23 Dental Screening Dental Screen Date: 06/12/23 [facility] Medical History Irritable bowel syndrome with both constipation and diarrhea Renal cyst Asthma exacerbation Annual physical exam Renal calculi Abscess of nipple, left On beta saniya at home History of anemia IBS (irritable bowel syndrome) GERD (gastroesophageal reflux disease) History of memory loss Elevated cholesterol HTN (hypertension) Asthma Colon cancer screening Seborrheic keratosis Knee pain, right Gastric ulcer Type 2 diabetes mellitus with hyperglycemia Tobacco abuse Obesity (BMI 30-39.9) Otitis externa Osteopenia Illiterate Osteoarthritis Surgical History History of arthroscopy of left knee Hx of section History of hysterectomy H/O colonoscopy with polypectomy History of esophagogastroduodenoscopy (EGD) H/O cystoscopy H/O oophorectomy History of total knee replacement Family History Father Prostate cancer Mother Brain tumor Social History Household Members: None Housing: Apartment Alcohol intake: never Patient Tobacco Use Status: Current everyday Tobacco user Tobacco use type: Cigarette Cigarettes Per Day: 5 Years Smoked: 2-3 cigarette a day e-Cigarette/Vaping Use: Never Used Second Hand Smoke Exposure: No service: No Current occupational status: disabled Cognitive needs: Yes Hearing needs: No Vision needs: No Questionnaire Thrive Questionnaire Date Thrive assessed: 06/12/23 Are you currently unemployed and looking for a job?: No AKILAH-7 AMB Questionnaire AKILAH-7 Date AKILAH - 7 assessed: 06/12/23 Source: Developed by Drs. Konstantin Langston, Saskia Sales, Luciano Leach and colleagues, with an educational liya from [employer]. Physical exam (Primary Care) Tobacco/Smoking Status: Tobacco use Status Tobacco use date assessed 09/14/23 09/14/23 14:28 Patient Tobacco Use Status Current everyday Tobacco 09/14/23 14:28 Tobacco use type Cigarette 09/14/23 14:28 e-Cigarette/Vaping Use Never Used 09/14/23 14:28 Thrive Assessment: Date of Thrive Assessment Date Thrive assessed 06/12/23 09/14/23 14:28 Coding
[2024-02-05 15:48] VITALS: BP 160/96; PULSE 67; O2SAT 98; BMI 38.6
--- NOTE | 2024-02-05 15:49 | A.OFFVIS_ITS ---
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 Accompanied by: Daughter Allergies ibuprofen [From Motrin] Allergy (Unknown, Verified 02/05/24 15:54) GI UPSET felodipine Adverse Reaction (Intermediate, Verified 02/05/24 15:54) leg swelling Medication List - Last Reconciled 02/05/24 by Michelle Pan Po, albuterol sulfate 90 mcg/actuation 2 inhalations PO Q4H PRN albuterol sulfate 2.5 mg (3 mL) inhalation Q4-6H PRN 90 days alendronate 70 mg PO QWEEK atorvastatin 10 mg PO DAILY blood pressure monitor (Blood Pressure Kit) As directed cane As directed cholecalciferol (vitamin D3) 50 mcg PO DAILY 90 days clonidine HCl 0.1 mg PO TID 90 days lili.stocking,knee,reg,xlrg As directed 20-30 mm HG famotidine 40 mg PO BID fluticasone propionate 110 mcg/actuation 2 inhalations inhalation BID 90 days fluticasone propionate 50 mcg/actuation (Flonase Allergy Relief) 1 spray intranasal DAILY hydrochlorothiazide 25 mg PO DAILY lisinopril 40 mg PO DAILY metoprolol succinate ER 150 mg (1.5 x 100 mg) PO DAILY 90 days pyridoxine (vitamin B6) 100 mg PO DAILY sennosides (senna) 17.2 mg (2 x 8.6 mg) PO BEDTIME 90 days Shower Chair As directed HPI SAWV HPI Details 68-year-old obese female smoker with sheela betes mellitus GERD hypercholesterolemia hypertension coming in for annual well visit last seen in 09/09/2023. Patient's mammogram is up-to-date bone density is up-to-date colonoscopy is up-to-date. upset today at home . constipation, , last november, chest pain with dizziness [facility] Medical History Irritable bowel syndrome with both constipation and diarrhea Renal cyst Asthma exacerbation Annual physical exam Renal calculi Abscess of nipple, left On beta saniya at home History of anemia IBS (irritable bowel syndrome) GERD (gastroesophageal reflux disease) History of memory loss Elevated cholesterol HTN (hypertension) Asthma Colon cancer screening Seborrheic keratosis Knee pain, right Gastric ulcer Type 2 diabetes mellitus with hyperglycemia Tobacco abuse Obesity (BMI 30-39.9) Otitis externa Osteopenia Illiterate Osteoarthritis Surgical History History of arthroscopy of left knee Hx of section History of hysterectomy H/O colonoscopy with polypectomy History of esophagogastroduodenoscopy (EGD) H/O cystoscopy H/O oophorectomy History of total knee replacement Family History Father Prostate cancer Mother Brain tumor Social History (Updated 02/05/24 @ 16:15 by Michelle Sanchez MD) Household Members: None Housing: Apartment Alcohol intake: current Comment: once q 3 month 1 drinks Patient Tobacco Use Status: Current everyday Tobacco user Tobacco use type: Cigarette Cigarettes Per Day: 5 Years Smoked: 2-3 cigarette a day e-Cigarette/Vaping Use: Never Used Second Hand Smoke Exposure: No service: No Current occupational status: disabled Cognitive needs: Yes Hearing needs: No Vision needs: No Questionnaire Medicare Wellness Checkup [age] What gender do you identify with?: female During the past 4 weeks, how much have you been bothered by emotional problems such as feeling anxious, depressed, irritable, sad or downhearted, and blue?: not at all During the past 4 weeks, has your physical & emotional health limited your social activities with family, friends, neighbors, or groups?: not at all During the past 4 weeks, how much bodily pain have you generally had?: mild pain During the past 4 weeks, was someone available to help you if you needed & wanted help?: yes, as much as I wanted During the past 4 weeks, what was the hardest physical activity you could do for at least 2 minutes?: heavy Can you get to places out of walking distance without help? (For eg., can you travel alone on buses, taxis or drive your car?): No Can you go shopping for groceries or clothes without someone's help?: No Can you prepare your own meals?: Yes Can you do your housework without help?: No Because of any health problems, do you need the help of another person with your personal care needs such as eating, bathing, dressing or getting around the house?: No Can you handle your own money without help?: Yes During the past 4 weeks, how would you rate your health in general?: good During the past 4 weeks how have things been going for you?: pretty well Are you having difficulties driving your car?: not applicable, I don't use a car Do you always fasten your seat belt when you are in a car?: yes, usually During past 4 weeks, have you been bothered by the following: never: Sexual problems?, Teeth or denture problems? and Problems using the telephone?, seldom: Trouble eating well? and sometimes: Falling or dizzy when standing up and Tiredness or fatigue? Have you fallen 2 or more times in the past year?: Yes Are you afraid of falling?: Yes Are you a smoker?: yes, and I might quit During the past 4 weeks, how many drinks of wine, beer, or other alcoholic beverages did you have?: no alcohol at all Do you exercise for about 20 minutes 3 or more times a week?: yes, most of the time Have you been given information to help with the following?: no: Hazards in your house that might hurt you? and no: Keeping track of your medications? How often do you have trouble taking medicines the way you have been told to take them?: I always take medicine as prescribed How confident are you that you can control & manage most of your health problems?: very confident What is your race?: or origin or descent PHQ-9 Over the last 2 weeks, how often have you been bothered by any of the following problems? 1. Little interest or pleasure in doing things: not at all 2. Feeling down, depressed, or hopeless: not at all 3. Trouble falling or staying asleep, or sleeping too much: several days 4. Feeling tired or having little energy: not at all 5. Poor appetite or overeating: not at all 6. Feeling bad about yourself - or that you are a failure or have let yourself or your family down: not at all 7. Trouble concentrating on things, such as reading the newspaper or watching television: not at all 8. Moving or speaking so slowly that other people could have noticed. Or the opposite - being so fidgety or restless that you have been moving around a lot m ore than usual: not at all 9. Thoughts that you would be better off or of hurting yourself in some way: not at all Total score: 1 71877 - PHQ-9 Billing: Yes Source: Developed by Drs. Konstantin Langston, Saskia Sales, Luciano Leach and colleagues, with an educational liya from [employer]. Review of Systems Const Denies poor appetite and Denies weakness Eyes Denies no additional complaints ENT Reports Normal hearing present, Denies dizziness, Denies nasal congestion, Denies tinnitus and Denies sore throat Card Denies chest pain, Denies syncope, Denies rapid heart rate and Denies dyspnea Resp Denies cough and Denies dyspnea GI Denies change in stool character, Reports constipation, Denies diarrhea, Denies nausea and Denies vomiting Denies urinary frequency, Denies difficulty voiding and Denies dysuria Neuro Reports Normal hearing present, Denies confusion, Denies dizziness, Denies syncope and Denies weakness Psych Denies confusion Physical Exam Vital Signs: Last Vital Signs Pulse 67 02/05/24 15:48 BP 160/96 H 02/05/24 15:48 Pulse Ox 98 02/05/24 15:48 Oxygen Delivery Method Room Air 02/05/24 15:48 BMI result Body Mass Index 38.6 Const General: No confusion Orientation/consciousness: No confusion HEENT Head: Yes normocephalic Ears: external ears normal and TM's normal bilaterally Face and sinus: Yes normal facial exam Mouth: moist mucous membranes Throat: Yes tonsils normal Eyes Conjunctivae: conjunctivae normal Pupils: Equal, round and reactive pupils present and Pupil accommodation reflex normal Direct Ophthalmoscopy: normal light reflex Neck Neck: No lymphadenopathy Thyroid: Thyroid normal Chest Chest palpation & inspection: normal inspection of the chest Resp Effort & Inspection: normal respiratory effort and no audible wheezes Auscultation: clear to auscultation bilaterally, no crackles, no wheezes and lung sounds not diminished Cardio Rate: regular rate Rhythm: regular rhythm Peripheral pulses: radial pulses present and dorsalis pedis present GI Other: guaiac negative Palpation (GI): no masses Auscultation: normal bowel sounds and normoactive bowel sounds Skin General skin exam: no rashes or lesions noted Rashes: no rashes Neuro General: No confusion Cranial nerves: Yes Equal, round and reactive pupils present and Yes Normal hearing present Cognition (Neuro): normal cognition Gait exam (Neuro): Normal gait present Motor exam (neuro): 5/5 motor strength present throughout Deep tendon reflexes (DTR's): Right brachioradialis reflex intensity grade: 2+, Left brachioradialis reflex intensity grade: 2+, Right patellar reflex intensity grade: 2+ and Left patellar reflex intensity grade: 2+ Extrem General: No edema Results AMB Hemoglobin A1c AMB Hemoglobin A1c 6.5 % Last Edit by SANNA Gar on 02/05/24 16:20 Immunizations pneumoc 20-obie conj-dip cr(PF) 0.5 mL IM syringe Performing Provider: Michelle Sanchez MD [facility] Documented (not given) by: SANNA Gar on 02/05/24 16:38 Reason Not Given: Received Previously Results Reviewed Results Reviewed: Laboratory Last Values Hgb A1c (Clinic) 6.5 % (4.0-6.0) H 02/05/24 16:10 Assessment & Plan Assessment & Plan (1) Medicare annual wellness visit, subsequent: Code(s): Z00.00 - Encounter for general adult medical examination without abnormal findings Plan: Patient is advised to eat healthy, keep well hydrated, keep active and have adequate sleep. (2) Type 2 diabetes mellitus with hyperglycemia: Comment: Dr. 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 Hemoglobin A1c goal of less than 7.0. Patient is diet controlled (3) Tobacco abuse: Code(s): Z72.0 - Tobacco use Plan: Patient is strongly advised to stop smoking! (4) Obesity (BMI 30-39.9): Comment: Diet and exercise Code(s): E66.9 - Obesity, unspecified Plan: Diet and exercise (5) High cholesterol: Code(s): E78.00 - Pure hypercholesterolemia, unspecified Plan: Avoid fried foods, chicken skin, eggs, butter margarine, pastries and meat. Be it pork or beef they have a lot of cholesterol LDL goal of less than 100 and triglyceride of less than 150 on atorvastatin 10 mg once a day (6) GERD (gastroesophageal reflux disease): Code(s): K21.9 - Gastro-esophageal reflux disease without esophagitis Qualifiers: Esophagitis presence: without esophagitis Qualified Code(s): K21.9 - Gastro-esophageal reflux disease without esophagitis Plan: Avoid the foods that causes that usually spicy foods, tomato products, juices, coffee, soda and foods that your sensitive to. After eating do not lie down, allow 3-4 hours before in lie down. And keep the head of bed above 30 degrees to avoid the acid from going up. (7) HTN (hypertension), benign: Code(s): I10 - Essential (primary) hypertension Plan: Continue with blood pressure medication. Decrease salt intake and exercise takes clonidine 0.1 mg 3 times a day lisinopril 40 mg once a day hydrochlorothiazide 25 mg once a day and metoprolol 150 mg once a day (8) Asthma: Comment: Code(s): J45.909 - Unspecified asthma, uncomplicated Qualifiers: Asthma complication type: uncomplicated Asthma persistence: intermittent Asthma severity: mild Qualified Code(s): J45.20 - Mild intermittent asthma, uncomplicated Plan: Continue with the albuterol inhaler as needed (9) Bilateral knee pain: Code(s): M25.561 - Pain in right knee; M25.562 - Pain in left knee Qualifiers: Chronicity: chronic Qualified Code(s): M25.561 - Pain in right knee; M25.562 - Pain in left knee; G89.29 - Other chronic pain Plan: X-ray has been requested for bilateral knees Orders: Orders XR knee LT 2V Today M25.561 - Pain in right knee, M25.562 - Pain in left knee XR knee RT 2V Today M25.561 - Pain in right knee, M25.562 - Pain in left knee Complete Blood Count Auto Diff 3 Months E11.65 - Type 2 diabetes mellitus with hyperglycemia Comprehensive Met. Panel 3 Months E11.65 - Type 2 diabetes mellitus with hyperglycemia Thyroid Stimulating Hormone 3 Months E11.65 - Type 2 diabetes mellitus with hyperglycemia Vitamin B12 and Folate 3 Months E11.65 - Type 2 diabetes mellitus with hyperglycemia Creatinine Urine 3 Months E11.65 - Type 2 diabetes mellitus with hyperglycemia AMB Hemoglobin A1c Today E11.65 - Type 2 diabetes mellitus with hyperglycemia Pneumococcal 20 Immunization Today Z23 - Encounter for immunization Free T4 (Free Thyroxine) 3 Months E11.65 - Type 2 diabetes mellitus with hyperglycemia Lipid Panel 3 Months E11.65 - Type 2 diabetes mellitus with hyperglycemia, E78.00 - Pure hypercholesterolemia, unspecified Vitamin D 25-OH Total 3 Months E11.65 - Type 2 diabetes mellitus with hyperglycemia Hemoglobin A1c 3 Months E11.65 - Type 2 diabetes mellitus with hyperglycemia Microalbumin, Random (w Creat) 3 Months E11.65 - Type 2 diabetes mellitus with hyperglycemia Medications: Refilled albuterol sulfate 90 mcg/actuation 2 inhalations PO Q4H PRN 8.5 grams 0RF bronchospasm J45.20 - Mild intermittent asthma, uncomplicated sennosides (senna) 17.2 mg (2 x 8.6 mg) PO BEDTIME 180 caps 1RF constipation 90 days Quality Reporting (2019) Depression/Bipolar (159/160/161/177) PHQ-9: Total score: 1 Coding Level of Care Code Medicare Subsequent (G0439) Diagnoses Medicare annual wellness visit, subsequent Z00.00 Type 2 diabetes mellitus with hyperglycemia, without long-term current use of insulin E11.65 Diabetes mellitus fci insulin use: 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
[2024-02-05 15:52] VITALS: BMI 38.6
== END 2024-02-05 16:40 | disposition home or self-care (01) ==
PROVIDERS: PCP Internal Medicine; Visit Provider Internal Medicine
DX: Z00.00 Encounter for general adult medical examination without abnormal findings (principal); E11.65 Type 2 diabetes mellitus with hyperglycemia; Z72.0 Tobacco use; E66.9 Obesity, unspecified; E78.00 Pure hypercholesterolemia, unspecified; K21.9 Gastro-esophageal reflux disease without esophagitis; I10 Essential (primary) hypertension; J45.20 Mild intermittent asthma, uncomplicated; M25.561 Pain in right knee; M25.562 Pain in left knee; G89.29 Other chronic pain; Z23 Encounter for immunization

== ENCOUNTER → 2024-02-05 14:57 | Outpatient (BNVA) | payer OTHER, MEDICAID, SELFPAY | PROVIDERS: PCP Internal Medicine; Visit Provider Internal Medicine | DX: Z00.00 Encounter for general adult medical examination without abnormal findings (principal); Z23 Encounter for immunization; E11.65 Type 2 diabetes mellitus with hyperglycemia; E66.9 Obesity, unspecified; K21.9 Gastro-esophageal reflux disease without esophagitis; I10 Essential (primary) hypertension; J45.20 Mild intermittent asthma, uncomplicated; M25.561 Pain in right knee; M25.562 Pain in left knee; G89.29 Other chronic pain; Z72.0 Tobacco use; Z71.6 Tobacco abuse counseling | CPT/HCPCS: 83036; 90471 ==

== ENCOUNTER 2024-03-22 13:54 | Outpatient (AMB) | payer OTHER, MEDICAID, SELFPAY ==
--- NOTE | 2024-03-22 14:08 | AM.OFFWIN_ITS ---
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 Patient Tobacco Use Status: Current everyday Tobacco user Allergies ibuprofen [From Motrin] Allergy (Unknown, Verified 03/22/24 14:13) GI UPSET felodipine Adverse Reaction (Intermediate, Verified 03/22/24 14:13) leg swelling Do you need a note to return to daycare/school/sports/work: No HPI HPI Comments History of Present Illness Details Patient is a 68-year-old Kazakh-speaking female who is here with her daughter complaining of right foot pain which has been getting worse over the last week. She tells me it is worse when she tries to walk on it and she is having difficulty walking because of the pain. She denies any injury to the foot. She tells me she has pain all over the bottom of her foot. She tells me she used to see a corporate strategist and get cortisone injections for what she thinks was plantar fasciitis but when her insurance changed she, she could no longer see that corporate strategist and has been unable to find a new one. She has not tried to take any medications to make her foot feel better. Patient tells me she can not take ibuprofen because it bothers her stomach too much [facility] Medical History Irritable bowel syndrome with both constipation and diarrhea Renal cyst Asthma exacerbation Annual physical exam Renal calculi Abscess of nipple, left On beta saniya at home History of anemia IBS (irritable bowel syndrome) GERD (gastroesophageal reflux disease) History of memory loss Elevated cholesterol HTN (hypertension) Asthma Colon cancer screening Seborrheic keratosis Knee pain, right Gastric ulcer Type 2 diabetes mellitus with hyperglycemia Tobacco abuse Obesity (BMI 30-39.9) Otitis externa Osteopenia Illiterate Osteoarthritis Surgical History History of arthroscopy of left knee Hx of section History of hysterectomy H/O colonoscopy with polypectomy History of esophagogastroduodenoscopy (EGD) H/O cystoscopy H/O oophorectomy History of total knee replacement Family History Father Prostate cancer Mother Brain tumor Social History (Updated 02/05/24 @ 16:15 by Michelle Sanchez MD) Household Members: None Housing: Apartment Alcohol intake: current Comment: once q 3 month 1 drinks Patient Tobacco Use Status: Current everyday Tobacco user Tobacco use type: Cigarette Cigarettes Per Day: 5 Years Smoked: 2-3 cigarette a day e-Cigarette/Vaping Use: Never Used Second Hand Smoke Exposure: No service: No Current occupational status: disabled Cognitive needs: Yes Hearing needs: No Vision needs: No Review of Systems Const All systems reviewed & are unremarkable except as noted in HPI and below Physical Exam Vital Signs: Last Vital Signs Pulse 104 H 03/22/24 14:13 BP 128/98 H 03/22/24 14:13 Pulse Ox 98 03/22/24 14:13 Oxygen Delivery Method Room Air 03/22/24 14:13 BMI result Body Mass Index 36.4 Const General: cooperative, healthy appearing, comfortable and no acute distress Orientation/consciousness: patient oriented x3 Limitations: no limitations HEENT Head: Yes normal to inspection Resp Effort & Inspection: normal respiratory effort and able to speak in complete sentences Neuro General: patient oriented x3 Extrem General: Yes normal to inspection Right lower extremity: foot Details: normal capillary refill, normal to inspection, tenderness Location: of the plantar foot (mid), toes with normal ROM, edema (slight) Location: of the dorsal foot Location: proximally, vascular exam Details: normal capillary refill, tendon exam Details: active flexion normal and active extension normal and motor-sensory exam Details: light-touch normal; no unusual warmth, no abrasion, no laceration and no ecchymosis Assessment & Plan Assessment & Plan (1) Plantar fasciitis of right foot: Code(s): M72.2 - Plantar fascial fibromatosis Plan: Recommended using ice water bottles and rolling foot on it as often as possible, as well as resting the foot. Patient states he can not tolerate ibuprofen so I sent a small dose of the prednisone burst to her pharmacy. If the pain continues I sent a orthopedics referral for follow-up. Plan see above Orders: Referrals Orthopedics Referral M72.2 - Plantar fascial fibromatosis Medications: New prednisone 20 mg PO QAM 5 tabs 0RF Coding Level of Care Code Est Pt Level 4 (97468) Diagnoses Plantar fasciitis of right foot M72.2
[2024-03-22 14:13] VITALS: BP 128/98; PULSE 104; O2SAT 98; BMI 36.4
== END 2024-03-22 14:44 | disposition home or self-care (01) ==
PROVIDERS: PCP Internal Medicine; Visit Provider Physician Assistant
DX: M72.2 Plantar fascial fibromatosis (principal)

== ENCOUNTER → 2024-03-22 13:54 | Outpatient (BNVA) | payer OTHER, MEDICAID, SELFPAY | PROVIDERS: PCP Internal Medicine; Visit Provider Physician Assistant | DX: M72.2 Plantar fascial fibromatosis (principal) | CPT/HCPCS: 99212 ==

== ENCOUNTER 2024-05-14 14:10 | Outpatient (AMB) | payer OTHER, MEDICAID, SELFPAY ==
[2024-05-14 14:12] VITALS: BP 148/90; PULSE 80; O2SAT 97; BMI 37.4
--- NOTE | 2024-05-14 14:12 | A.OFFPC_ITS ---
Vital Signs 05/14/24 14:12 Height 4 ft 11 in Weight 185 lb BMI 37.4 BP 148/90 H Blood Pressure Location Lt brachial Position Sitting Pulse 80 Pulse Source Pulse Oximeter Pulse Oximetry (%) 97 Oxygen Delivery Method Room Air Intake Visit Reasons: dm Accompanied by: Daughter Allergies ibuprofen [From Motrin] Allergy (Unknown, Verified 05/14/24 14:18) GI UPSET felodipine Adverse Reaction (Intermediate, Verified 05/14/24 14:18) leg swelling Tobacco use date assessed: 05/14/24 Fall risk assessment: No Falls in past year Last assessed Fall Risk: 05/14/24 Dental Screening Dental Screen Date: 05/14/24 Did you have a dental visit in the last 12 months?: No Did you have a dental problem in the last 6 months where you did not have access to dental care?: No Was dental information given to patient?: Patient has dentist HPI dm HPI Details The patient is a 68-year-old female presenting with concerns related to gout, hypertension, diabetes mellitus, and ocular dryness. She was recently hospitalized for three days due to acute foot and ankle pain, initially suspected to be gout. During her hospitalization, she was treated with prednisone and allopurinol. The patient notes that, historically, her symptoms have included swelling and pain, primarily affecting the ankle, which is consistent with gout. Uric acid levels were reported at 11.6 mg/dL during her hospitalization, suggesting hyperuricemia. She also received education regarding dietary influences on uric acid levels. The patient has a past medical history of hypertension and diabetes mellitus, with recent concerns about elevated blood glucose attributed to steroid use. Management of her hypertension includes the use of hydrochlorothiazide, which has been noted to potentially elevate uric acid levels. The patient does not perform home monitoring of blood pressure, but there are intentions to begin this practice. Additionally, the patient experiences ocular dryness for which she uses artificial tears. She also reported ear discomfort with excessive cerumen in the ear canal, leading to ear water irrigation. [facility] Medical History Irritable bowel syndrome with both constipation and diarrhea Renal cyst Asthma exacerbation Annual physical exam Renal calculi Abscess of nipple, left On beta saniya at home History of anemia IBS (irritable bowel syndrome) GERD (gastroesophageal reflux disease) History of memory loss Elevated cholesterol HTN (hypertension) Asthma Colon cancer screening Seborrheic keratosis Knee pain, right Gastric ulcer Type 2 diabetes mellitus with hyperglycemia Tobacco abuse Obesity (BMI 30-39.9) Otitis externa Osteopenia Illiterate Osteoarthritis Surgical History History of arthroscopy of left knee Hx of section History of hysterectomy H/O colonoscopy with polypectomy History of esophagogastroduodenoscopy (EGD) H/O cystoscopy H/O oophorectomy History of total knee replacement Family History Father Prostate cancer Mother Brain tumor Social History Household Members: None Housing: Apartment Alcohol intake: current Comment: once q 3 month 1 drinks Patient Tobacco Use Status: Current everyday Tobacco user Tobacco use type: Cigarette Cigarettes Per Day: 5 Years Smoked: 2-3 cigarette a day e-Cigarette/Vaping Use: Never Used Second Hand Smoke Exposure: No service: No Current occupational status: disabled Cognitive needs: Yes Hearing needs: No Vision needs: No Questionnaire PHQ-9 Over the last 2 weeks, how often have you been bothered by any of the following problems? 1. Little interest or pleasure in doing things: not at all 2. Feeling down, depressed, or hopeless: not at all 3. Trouble falling or staying asleep, or sleeping too much: several days 4. Feeling tired or having little energy: not at all 5. Poor appetite or overeating: not at all 6. Feeling bad about yourself - or that you are a failure or have let yourself or your family down: not at all 7. Trouble concentrating on things, such as reading the newspaper or watching television: not at all 8. Moving or speaking so slowly that other people could have noticed. Or the opposite - being so fidgety or restless that you have been moving around a lot more than usual: not at all 9. Thoughts that you would be better off or of hurting yourself in some way: not at all Total score: 1 Depression Screening Interpretation: Negative Depression Screening Done: Yes 73583 - PHQ-9 Billing: Yes Source: Developed by Drs. Konstantin Langston, Saskia B.WLuciano Ponce and colleagues, with an educational liya from [employer]. Thrive Questionnaire Date Thrive assessed: 05/14/24 I am a: Patient What is your living situation today?: I have a steady place to live Within the past 12 months, did the food you bought not last and you didn't have the money to get more?: Never true Within the past 12 months, did you worry whether your food would run out before you got money to buy more?: Never true Are you currently unemployed and looking for a job?: No THRIVE Score: 0 AUDIT C Alcohol Use Questionnaire (AUDIT-C) 1. How often do you have a drink containing alcohol?: Never 3. How often do you have six or more drinks on one occasion?: Never Total Score: 0 AKILAH-7 AMB Questionnaire AKILAH-7 Date AKILAH - 7 assessed: 05/14/24 Feeling nervous, anxious, or on edge: 0 = Not at all Not being able to stop or control worryin = Not at all Worrying too much about different things: 0 = Not at all Trouble relaxin = Not at all Being so restless that it is hard to sit still: 0 = Not at all Becoming easily annoyed or irritable: 0 = Not at all Feeling afraid as if something awful might happen: 0 = Not at all Total AKILAH-7 score (0-4 normal; 5-9 mild; 10-14 moderate; 15-21 severe): 0 Source: Developed by Drs. Konstantin Langston, Luciano Bailey and colleagues, with an educational liya from [employer]. Physical exam (Primary Care) Vital Signs: Last Vital Signs Pulse 80 05/14/24 14:12 BP 148/90 H 05/14/24 14:12 Pulse Ox 97 05/14/24 14:12 Oxygen Delivery Method Room Air 05/14/24 14:12 BMI result Body Mass Index 37.4 Tobacco/Smoking Status: Tobacco use Status Tobacco use date assessed 05/14/24 05/14/24 14:21 Patient Tobacco Use Status Current everyday Tobacco 05/14/24 14:21 Tobacco use type Cigarette 05/14/24 14:21 e-Cigarette/Vaping Use Never Used 05/14/24 14:21 PHQ-9: PHQ-9 Score PHQ-9: Total score 1 05/14/24 14:21 Depression Screening Interpretation: Negative Thrive Assessment: Date of Thrive Assessment Date Thrive assessed 05/14/24 05/14/24 14:21 Const Other: impacted cerumen L ear General: alert; No acute distress Eyes Conjunctivae: conjunctivae normal Resp Auscultation: clear to auscultation bilaterally Cardio Rate: regular rate Rhythm: regular rhythm GI Inspection: Yes normal to inspection Extrem General: Yes normal to inspection and No edema Office Procedures Cerumen Removal From which ear canal was the cerumen removed: left Removal: irrigation and otoscope w/curette Notes: patient tolerated procedure well, no complications and ear canal clear 56910-Sld Irrigation/Lavage Results AMB Hemoglobin A1c AMB Hemoglobin A1c 7.6 % Last Edit by Valeri Schwartz CMA on 05/14/24 14:25 Results Reviewed Results Reviewed: Laboratory Last Values Hgb A1c (Clinic) 7.6 % (4.0-6.0) H 05/14/24 14:24 Coding Level of Care Code Est Pt Level 4 (14148) Complex EM visit Add On G2211 Diagnoses Type 2 diabetes mellitus with hyperglycemia, without long-term current use of insulin E11.65 Diabetes mellitus superintendent terminal insulin use: without long-term use Tobacco abuse Z72.0 Obesity (BMI 30-39.9) E66.9 Gastroesophageal reflux disease without esophagitis K21.9 Esophagitis presence: without esophagitis High cholesterol E78.00 HTN (hypertension), benign I10 Mild intermittent asthma without complication J45.20 Asthma severity: mild Asthma persistence: intermittent Asthma complication type: uncomplicated Plantar fasciitis of right foot M72.2 Foreign body of ear, left T16.2XXA CPT Codes Office Procedure - CPT: 72713-Gij Irrigation/Lavage ([id number]) Additional Codes PHQ-9 - 61636 - PHQ-9 Billing: Yes ([id number]) Assessment & Plan Assessment & Plan (1) Type 2 diabetes mellitus with hyperglycemia: Comment: Dr. Mcadams Code(s): E11.65 - Type 2 diabetes mellitus with hyperglycemia Category: Medical Qualifiers: Diabetes mellitus superintendent terminal insulin use: without superintendent terminal use Qualified Code(s): E11.65 - Type 2 diabetes mellitus with hyperglycemia (2) Tobacco abuse: Code(s): Z72.0 - Tobacco use Category: Medical (3) Obesity (BMI 30-39.9): Comment: Diet and exercise Code(s): E66.9 - Obesity, unspecified Category: Medical (4) GERD (gastroesophageal reflux disease): Code(s): K21.9 - Gastro-esophageal reflux disease without esophagitis Category: Medical Qualifiers: Esophagitis presence: without esophagitis Qualified Code(s): K21.9 - Gastro-esophageal reflux disease without esophagitis (5) High cholesterol: Code(s): E78.00 - Pure hypercholesterolemia, unspecified Category: Medical (6) HTN (hypertension), benign: Code(s): I10 - Essential (primary) hypertension Category: Medical Plan: advised to monitor BP at home (7) Asthma: Comment: Code(s): J45.909 - Unspecified asthma, uncomplicated Category: Medical Qualifiers: Asthma severity: mild Asthma persistence: intermittent Asthma complication type: uncomplicated Qualified Code(s): J45.20 - Mild intermittent asthma, uncomplicated (8) Plantar fasciitis of right foot: Code(s): M72.2 - Plantar fascial fibromatosis Category: Medical (9) Foreign body of ear, left: Code(s): T16.2XXA - Foreign body in left ear, initial encounter Category: Medical Plan: irrigation done and scoop used TM intact Plan - The patient should continue with allopurinol therapy to manage hyperuricemia associated with gout. - Evaluate and possibly discontinue hydrochlorothiazide as it may exacerbate hyperuricemia; consider alternative antihypertensive medications. - Plan to educate the patient on dietary modifications to manage gout symptoms and reduce uric acid levels, emphasizing hydration and reducing intake of purine-rich foods. - Arrange referral to rheumatology for specialist management of severe or refractory gout, as deemed necessary. - Continue with blood glucose monitoring and maintain diabetes management, particularly in adjusting therapy post-steroid treatment. - Reinforce the importance of using artificial tears to address ocular dryness. - Follow up with a hostage negotiator for ongoing foot care and evaluation related to structural foot issues not caused by gout. - Encourage regular use of artificial tears for dry eyes and consider ophthalm ology referral if symptoms persist. - Recommend home blood pressure monitoring to establish accurate baseline and ongoing measurement of blood pressure. Orders: Orders AMB Hemoglobin A1c Today Z13.9 - Encounter for screening, unspecified Referrals Podiatry Referral M72.2 - Plantar fascial fibromatosis Medications: Refilled famotidine 40 mg PO BID 180 tabs 2RF K21.9 - Gastro-esophageal reflux disease without esophagitis
== END 2024-05-14 15:17 | disposition home or self-care (01) ==
PROVIDERS: PCP Internal Medicine; Visit Provider Internal Medicine
DX: E11.65 Type 2 diabetes mellitus with hyperglycemia (principal); E66.812 Obesity, class 2; Z68.37 Body mass index [BMI] 37.0-37.9, adult; Z72.0 Tobacco use; K21.9 Gastro-esophageal reflux disease without esophagitis; E78.00 Pure hypercholesterolemia, unspecified; I10 Essential (primary) hypertension; J45.20 Mild intermittent asthma, uncomplicated; M72.2 Plantar fascial fibromatosis; H61.22 Impacted cerumen, left ear

== ENCOUNTER → 2024-05-14 14:10 | Outpatient (BNVA) | payer OTHER, MEDICAID, SELFPAY | PROVIDERS: PCP Internal Medicine; Visit Provider Internal Medicine | DX: I10 Essential (primary) hypertension (principal); E11.65 Type 2 diabetes mellitus with hyperglycemia; E66.9 Obesity, unspecified; K21.9 Gastro-esophageal reflux disease without esophagitis; E78.00 Pure hypercholesterolemia, unspecified; J45.20 Mild intermittent asthma, uncomplicated; M72.2 Plantar fascial fibromatosis; M10.9 Gout, unspecified; H61.22 Impacted cerumen, left ear; T16.2XXA Foreign body in left ear, initial encounter; X58.XXXA Exposure to other specified factors, initial encounter; Y93.9 Activity, unspecified; Y92.9 Unspecified place or not applicable; Y99.9 Unspecified external cause status; Z72.0 Tobacco use | CPT/HCPCS: 69210; 83036; 96127; 99212 ==

== ENCOUNTER 2024-05-23 07:50 | Outpatient (REF) | payer MEDICARE, MEDICAID, SELFPAY ==
--- NOTE | ~2024-05-23 | US_ITS ---
CLINICAL HISTORY: N20.0 - Calculus of kidney US Renal Comparison: None Findings: Right kidney normal size and echotexture, 8.1 cm length. Left kidney normal size and echotexture, 7.8 cm length. There are bilateral thin-walled hypoechoic possible Bosniak 1 cysts, on the right measuring 2.6 x 2.5 x 2.5 cm and 4.3 x 2.8 x 2.4 cm. On the left these measure 1.7 x 1.7 x 1.3 cm, 0.8 x 0.7 x 0.7 cm, and 0.8 x 0.8 x 0.7 cm. IMPRESSION: 1. Bilateral possible Bosniak 1 cysts. No acute findings This document has been electronically signed by: Mark Loco MD on 05/25/2024 07:47:02
== END 2024-05-23 07:51 | disposition home or self-care (01) ==
LOC: HO.US 07:50
PROVIDERS: PCP Internal Medicine; Visit Provider Nurse Practitioner Family
DX: N20.0 Calculus of kidney (principal)
CPT/HCPCS: 76775

== ENCOUNTER → 2024-05-23 07:51 | Outpatient (BNV) | payer MEDICARE, MEDICAID, SELFPAY | PROVIDERS: PCP Internal Medicine; Visit Provider Specialist | DX: N20.0 Calculus of kidney (principal) | CPT/HCPCS: 76775 ==

== ENCOUNTER 2024-06-04 09:01 | Outpatient (REF) | payer MEDICARE, MEDICAID, SELFPAY ==
[2024-06-04 16:34] LABS: Urine Cytology See Pathology rpt
== END 2024-06-04 09:02 | disposition home or self-care (01) ==
LOC: HO.LNP 09:01
PROVIDERS: PCP Internal Medicine; Visit Provider Nurse Practitioner Family
DX: R31.29 Other microscopic hematuria (principal); N28.1 Cyst of kidney, acquired; N20.0 Calculus of kidney; Z13.9 Encounter for screening, unspecified
CPT/HCPCS: 81003; 88112; 99212

== ENCOUNTER 2024-06-04 09:01 | Outpatient (AMB) | payer MEDICARE, MEDICAID, SELFPAY ==
--- NOTE | 2024-06-04 09:38 | MHC.OFFVIS ---
Intake Visit Reasons: 1y/US(set) Intake Note: Patient is Present for Follow Up Ultrasound Results Urology Medication: Vitamin B6 Antibiotic Allergies: None Blood Thinners: None State Game Protector Required: No Cone Tender: Cone Tender Present Accompanied by: Daughter Allergies ibuprofen [From Motrin] Allergy (Unknown, Verified 06/04/24 10:15) GI UPSET felodipine Adverse Reaction (Intermediate, Verified 06/04/24 10:15) leg swelling Medication List - Last Reconciled 06/04/24 by ETTA BhatiaP- albuterol sulfate 2.5 mg (3 mL) inhalation Q4-6H PRN 90 days albuterol sulfate 90 mcg/actuation 2 inhalations PO Q4H PRN alendronate 70 mg PO QWEEK allopurinol 100 mg PO DAILY atorvastatin 10 mg PO DAILY blood pressure monitor (Blood Pressure Kit) As directed cane As directed cholecalciferol (vitamin D3) 50 mcg PO DAILY 90 days clonidine HCl 0.1 mg PO TID 90 days lili.stocking,knee,reg,xlrg As directed 20-30 mm HG famotidine 40 mg PO BID fluticasone propionate 110 mcg/actuation 2 inhalations inhalation BID 90 days fluticasone propionate 50 mcg/actuation (Flonase Allergy Relief) 1 spray intranasal DAILY hydrochlorothiazide 25 mg PO DAILY lisinopril 40 mg PO DAILY metoprolol succinate ER 150 mg (1.5 x 100 mg) PO DAILY 90 days prednisone 20 mg PO QAM pyridoxine (vitamin B6) 100 mg PO DAILY sennosides (senna) 17.2 mg (2 x 8.6 mg) PO BEDTIME 90 days Shower Chair As directed HPI Comments Details: Bhavana is a pleasant Guatemalan-speaking 68-year-old female patient of Dr. Sanchez who was accompanied by her daughter at today's office visit. She has a past medical history of irritable bowel syndrome, renal cysts, asthma, renal calculi, anemia, hypercholesteremia, hypertension, type 2 diabetes, obesity, osteopenia, and osteoarthritis. She presents to the office today for follow-up of her nephrolithiasis and bilateral renal cysts. Recent renal imaging results reviewed with the patient and her family member today. 06/15 bilateral kidneys with Bosniak 1 cysts. No nephrolithiasis, no hydronephrosis, no acute findings. In discussion with the patient today she denies having had any bothersome urinary issues or concerns since her last office visit approximately one year ago. When asked she denies urinary urgency, urinary frequency, incontinence, nocturia, hematuria, dysuria, foul smelling urine, changes to urinary stream, flank pain, fever, and or chills. In office urinalysis results reviewed with the patient today. She is happy with her current voiding parameters. She otherwise offers no other issues or concerns at this time. [facility] Medical History Irritable bowel syndrome with both constipation and diarrhea Renal cyst Asthma exacerbation Annual physical exam Renal calculi Abscess of nipple, left On beta asniya at home History of anemia IBS (irritable bowel syndrome) GERD (gastroesophageal reflux disease) History of memory loss Elevated cholesterol HTN (hypertension) Asthma Colon cancer screening Seborrheic keratosis Knee pain, right Gastric ulcer Type 2 diabetes mellitus with hyperglycemia Tobacco abuse Obesity (BMI 30-39.9) Otitis externa Osteopenia Illiterate Osteoarthritis Surgical History History of arthroscopy of left knee Hx of section History of hysterectomy H/O colonoscopy with polypectomy History of esophagogastroduodenoscopy (EGD) H/O cystoscopy H/O oophorectomy History of total knee replacement Family History Father Prostate cancer Mother Brain tumor Social History Household Members: None Housing: Apartment Alcohol intake: current Comment: once q 3 month 1 drinks Patient Tobacco Use Status: Current everyday Tobacco user Tobacco use type: Cigarette Cigarettes Per Day: 5 Years Smoked: 2-3 cigarette a day e-Cigarette/Vaping Use: Never Used Second Hand Smoke Exposure: No service: No Current occupational status: disabled Cognitive needs: Yes Hearing needs: No Vision needs: No Review of Systems Const Reports as per HPI Eyes Reports no additional complaints ENT Reports no additional complaints Card Reports as per HPI Resp Reports as per HPI GI Reports as per HPI Reports as per HPI Musc Reports as per HPI Neuro Reports no additional complaints Psych Reports no additional complaints Endo Reports as per HPI Thiago/Lymph Reports no additional complaints Aller/Immun Reports no additional complaints Physical Exam Const General: cooperative, healthy appearing, comfortable, no acute distress, well developed, alert and awake Nutritional Appearance: overweight Orientation/consciousness: patient oriented x3 Limitations: no limitations HEENT Head: Yes normal to inspection, Yes normocephalic and Yes atraumatic Ears: hearing grossly normal bilaterally Eyes General: appearance normal, both eyes and all related structures Neck Neck: Yes normal visual inspection and Yes trachea midline Chest Chest palpation & inspection: normal inspection of the chest Resp Effort & Inspection: normal respiratory effort and able to speak in complete sentences Cardio Rate: regular rate GI Inspection: Yes normal to inspection General: Yes no CVA tenderness Back/Spine/Pelvis Back: no CVA tenderness Skin General skin exam: no rashes or lesions noted Neuro General: patient oriented x3 Extrem General: Yes normal to inspection Psych Appearance: grossly normal and well kempt Mental Status: mental status grossly normal Speech and movement: Normal speech and movement present and Clear speech present Affect: normal affect Attitude: cooperative Thought process: Normal thought process present Thought content: Normal thought content present Insight: Fair insight present (Psych) Judgement: Fair judgement present (Psych) Results AMB Urinalysis, Automated UA Leukoctes 0 Radha/uL Last Edit by VIRGIE Fontenot on 06/04/24 10:01 UA Nitrite Negative Last Edit by VIRGIE Fontenot on 06/04/24 10:01 UA Urobilinogen 0.2 mg/dL Last Edit by Linsey Reno [facility] on 06/04/24 10:01 UA Protein 0 mg/dL Last Edit by Linsey Reno Arthur on 06/04/24 10:01 UA pH 6.0 Last Edit by Linsey Reno [facility] on 06/04/24 10:01 UA Blood 10 Sergey/uL Last Edit by VIRGIE Fontenot on 06/04/24 10:01 UA Specific [place] 1.010 Last Edit by Linsey Reno [facility] on 06/04/24 10:01 UA Ketone Negative Last Edit by VIRGIE Fontenot on 06/04/24 10:01 UA Bilirubin 0 mg/dL Last Edit by Linsey Reno [facility] on 06/04/24 10:01 UA Glucose 0 mg/dL Last Edit by VIRGIE Fontenot on 06/04/24 10:01 Results Reviewed Results Reviewed: Laboratory Last Values Urine pH (Auto) 6.0 06/04/24 09:43 Specific [place] (Auto) 1.010 06/04/24 09:43 Urine Protein (Auto) 0 mg/dL 06/04/24 09:43 Glucose (UA)(Auto) 0 mg/dL 06/04/24 09:43 Urine Ketones (Auto) Negative 06/04/24 09:43 Urine Blood (Auto) 10 Sergey/uL 06/04/24 09:43 Urine Nitrite (Auto) Negative 06/04/24 09:43 Urine Bilirubin (Auto) 0 mg/dL 06/04/24 09:43 Urine Urobilinogen (Auto) 0.2 mg/dL 06/04/24 09:43 Leukocyte Esterase (Auto) 0 Radha/uL 06/04/24 09:43 Ordering Physician: Cat Reynoso Date of Service: 05/23/24 Procedure(s): US renal BI Accession Number(s): [id number] cc: Cat Reynoso; Michelle Sanchez MD~ CLINICAL HISTORY: N20.0 - Calculus of kidney US Renal Comparison: None Findings: Right kidney normal size and echotexture, 8.1 cm length. Left kidney normal size and echotexture, 7.8 cm length. There are bilateral thin-walled hypoechoic possible Bosniak 1 cysts, on the right measuring 2.6 x 2.5 x 2.5 cm and 4.3 x 2.8 x 2.4 cm. On the left these measure 1.7 x 1.7 x 1.3 cm, 0.8 x 0.7 x 0.7 cm, and 0.8 x 0.8 x 0.7 cm. IMPRESSION: 1. Bilateral possible Bosniak 1 cysts. No acute findings Assessment & Plan Assessment & Plan (1) Renal cyst: Code(s): N28.1 - Cyst of kidney, acquired Category: Medical (2) Microscopic hematuria: Code(s): R31.29 - Other microscopic hematuria Category: Medical Plan In office urinalysis results reviewed the patient today; as noted above; will send for urine cytology. Recent renal imaging results reviewed the patient today; as noted above. Patient currently denies any bothersome urinary issues or concerns. She is happy with her current voiding parameters. Will continue with surveillance monitoring Will obtain renal ultrasound in 1 year. Follow-up in 1 year with imaging to be completed prior; or sooner with any issues, concerns, and or questions. Orders: Orders US renal BI 1 Year N20.0 - Calculus of kidney, N28.1 - Cyst of kidney, acquired AMB Urinalysis Automated Today Z13.9 - Encounter for screening, unspecified Urine Cytology Today R31.29 - Other microscopic hematuria Patient Instructions: The patient had an opportunity to ask questions regarding the treatment plan. All questions were answered. Physical exam, labs, and imaging were discussed and reviewed in detail. As well as risks, benefits, and discussion of treatment choices. No major barriers to understanding were identified. The patient expressed understanding and agreement with the above treatment plan. The patient was made aware they should contact our office by phone for worsening of their current condition, the appearance of new symptoms, or with any questions or concerns. Compliance is encouraged with any medications and follow up testing that is ordered. It is a privilege to be allowed the opportunity to participate in? your urological care.? Again, if you have any questions or concerns If you have any questions or concerns please do not hesitate to contact me. The office is [phone]. This note is constructed using voice recognition software. While every effort has been made to ensure accuracy critical care nurse specialist errors may have been included. Yours sincerely, ELAINE Bhatia Coding Level of Care Code Est Pt Level 3 (15711) Diagnoses Renal cyst N28.1 Microscopic hematuria R31.29
== END 2024-06-04 10:18 | disposition home or self-care (01) ==
PROVIDERS: PCP Internal Medicine; Visit Provider Nurse Practitioner Family
DX: N28.1 Cyst of kidney, acquired (principal); R31.29 Other microscopic hematuria; Z13.9 Encounter for screening, unspecified
CPT/HCPCS: 99213

== ENCOUNTER 2024-08-01 08:25 | Outpatient (REF) | payer MEDICARE, MEDICAID, SELFPAY ==
[2024-08-01 08:40] LABS: MANUAL DIFF FLAG NO
--- OUTSIDE RECORDS SUMMARY | 2024-08-01 08:56 | XMS_ITS | Clinical Summary ---
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 Contact Info) Description 08/13/2024 11:00 AM EDT Consult Orthopedic Surgery - [place] [address] [phone] Harsha Burnham, DPM [address] [address] Health Maintenance Due Date Last Done Comments DTaP,Tdap,and Td Vaccines (1 - Tdap) 08/11/1974 Pneumococcal Vaccine: 50+ Years (1 of 1 - PCV) 08/11/2005 Zoster Vaccines (1 of 2) 08/11/2005 Colorectal Cancer Screening: Colonoscopy 04/24/2022 Depression Screening 04/24/2022 Falls Risk Assessment 04/24/2022 Hepatitis C Screening 04/24/2022 Medicare Annual Wellness Visit 04/24/2022 Social Influencers of Health Screening 04/24/2022 COVID-19 Vaccine ( - 2023- season) 2024 Influenza Vaccine (#1) 2024 Breast Cancer Screening 12/31/2025 01/01/20 24, 12/26/2022, 12/26/2021, Additional history exists RSV Immunization Patients 60+ Years Old (1 - 1-dose 75+ series) 08/11/2030 Osteoporosis Screening (Bone Density Screening) 11/10/2032 11/10/2022, 03/08/2019 HIB Vaccines Aged Out No longer eligi ble based on patient's age to complete this topic HPV Vaccines Aged Out No longer eligi ble based on patient's age to complete this topic Hepatitis A Vaccines Aged Out No long er eligible based on patient's age to complete this topic Hepatitis B Vaccines Aged Out No long er eligible based on patient's age to complete this topic IPV Vaccines Aged Out No longer eligi ble based on patient's age to complete this topic MMR Vaccines Aged Out No longer eligi ble based on patient's age to complete this topic Meningococcal ACWY Vaccine Aged Out N o longer eligible based on patient's age to complete this topic Meningococcal B Vacine Aged Out No lo nger eligible based on patient's age to complete this topic RSV Immunization Patients Under 20 months Aged Out No longer eligible based on patient's age to complete this topic Varicella Vaccines Aged Out No longer eligible based on patient's age to complete this topic Procedures Procedure Name Priority Date/Time Associated Diagnosis Comments [facility] SCREENING DIGITAL Routine 01/01/2024 9:44 AM EDT Encounter for screening mammogram for malignant neoplasm of breast [facility] DEXA AXIAL SKELETON Routine 11/10/2022 7:43 AM EDT Other specified disorders of bone density and structure, multiple sites from Last 3 Months or Most Recently Relevant to Health Maintenance Results * [facility] SCREENING DIGITAL (01/01/2024 9:44 AM EDT) Anatomical Region Laterality Modality Mammography 01/01/2024 6:45 AM EDT Narrative 01/01/2024 9:44 AM EDT [facility] Diagnostic Imaging Department [address] [place] [address] Patient: ??KEVEN,BHAVANA ?/Age/Sex: 1955 - 68 - F Unit#: ??[id number] ? Location/Status: ??SPDIMAM/REG CLI ? Mnemonic/Ordering Site: ??DIGSC/SPMAM Ordering Physician: ??MICHELLE BOB MD [facility] Screening Digital - 01/01/24 - 721 Report Status:Signed EXAM: [facility] Screening Digital EXAM DATE AND TIME: 01/01/2024 7:23 AM HISTORY: ??Screening. Right breast biopsy in 2005, pathology benign. COMPARISON: ??12/26/22, 12/25/21, 12/17/20 TECHNIQUE: Bilateral digital breast tomosynthesis was performed in the CC and MLO projections. Computer aided detection with WAVE (Wireless [employer] Vehicle Elect[employer]) 3D 3.1 was employed. TISSUE DENSITY: b. There are scattered areas of fibroglandular density. FINDINGS: No suspicious masses, grouped microcalcifications, or areas of architectural distortion are seen. Round microcalcifications are scattered and occur in small groups bilaterally, showing no significant change, considered benign. Vascular calcification is present. The skin is unremarkable. IMPRESSION: Stable mammographic appearance of the breasts. ??No evidence of malignancy is seen. A negative mammogram in the presence of a clinically suspicious palpable abnormality does not preclude the possibility of malignancy or alter the indications for biopsy. BI-RADS: ??Category 2: Benign RECOMMENDATION(S): 1: Routine screening mammogram BILATERAL in 1 year. Dictating Physician: ??AMELIE BOLTON MD Electronically Signed by: ??AMELIE BOLTON MD Dic Date/Time: ??01/01/24942 Sign date/Time: ??01/01/24 09 Procedure Note Amelie Bolton MD - 03/06/2024 [facility] Diagnostic Imaging Department [address] [place] [id number] Patient: ELE SHAWCTA /Age/Sex: 1955 - 68 - F Unit#: [id number] Location/Status: SPDIMA/REG CLI Mnemonic/Ordering Site: [facility] Ordering Physician: MICHELLE BOB MD [facility] Screening Digital - 01/01/24721 Report Status:Signed EXAM: [facility] Screening Digital EXAM DATE AND TIME: 01/01/2024 7:23 AM HISTORY: Screening. Right breast biopsy in 2005, pathology benign. COMPARISON: 12/26/22, 12/25/21, 12/17/20 TECHNIQUE: Bilateral digital breast tomosynthesis was performed in the CCand MLO projections. Computer aided detection with [employer] 3D 3.1was employed. TISSUE DENSITY: b. There are scattered areas of fibroglandular density. FINDINGS: No suspicious masses, grouped microcalcifications, or areas ofarchitectural distortion are seen. Round microcalcifications are scattered and occur insmall groups bilaterally, showing no significant change, considered benign. Vascular calcification is present. The skin is unremarkable. IMPRESSION: Stable mammographic appearance of the breasts. No evidence of malignancyis seen. A negative mammogram in the presence of a clinically suspicious palpable abnormality does not preclude the possibility of malignancy or alter the indications for biopsy. BI-RADS: Category 2: Benign RECOMMENDATION(S): 1: Routine screening mammogram BILATERAL in 1 year. Dictating Physician: AMELIE BOLTON MD Electronically Signed by: AMELIE BOLTON MD Dic Date/Time: 01/01/24942 Sign date/Time: 01/01/24943 Michelle Bob MD IMG BI PROCEDURES Final Result * [facility] DEXA AXIAL SKELETON (11/10/2022 7:43 AM EDT) Anatomical Region Laterality Modality Mammography 11/09/2022 12:3 3 PM EDT Narrative 11/10/2022 7:43 AM EDT [facility] Diagnostic Imaging Department [address] [place], [place] [id number] Patient: ??BHAVANA SHAW ?/Age/Sex: 1955 - 67 - F Unit#: ??[id number] ? Location/Status: ??SPDIMAM/REG CLI ? Mnemonic/Ordering Site: ??MAMDEXAAX/SPMAM Ordering Physician: ??MICHELLE BOB MD [facility] Dexa Axial Skeleton - 11/09/22 - [id number] Report Status:Signed HISTORY: ??The patient is a 67-year-old postmenopausal female smoker with clinical concern for metabolic bone disease. FINDINGS: ??Dual energy x-ray absorptiometry of the lumbar spine and femurs is performed. The mean bone mineral density at L1-3 is 1.024 gm/cm2 which is 88% of that of young normals and 97% of that of age matched controls. This yields a T- score of -1.2 and a Z-score of -0.3 which is diagnostic of osteopenia. The mean bone mineral density of the femurs bilaterally is 0.833 gm/cm2 which is 83% of that of young normals and 92% of that of age matched controls. ??This yields a T-score of -1.4 and a Z-score of -0.6 which is diagnostic of osteopenia. ??The T-score of the right femoral neck is -1.3 and that of the left femoral neck is -2.0 which is diagnostic of osteopenia. IMPRESSION: 1. Osteopenia. ??There has been an increase of 12.8% in bone mineral density in the lumbar spine since the prior examination of 03/08/2019. ??There has been an increase of 3.5% in bone mineral density in the right femur and an increase of 1.2% in bone mineral density in the left femur. 2. FRAX analysis yields a 10-year probability of major osteoporotic fracture of 9.8% and a 10-year probability of hip fracture of 2.4%. Code 36129 Dictating Physician: ??LEATHA TRIPP MD Electronically Signed by: ??LEATHA TRIPP MD Dic Date/Time: ??11/10/22 0741 Sign date/Time: ??11/10/22 0743 Procedure Note Leatha Tripp MD - 06/27/2023 [facility] Diagnostic Imaging Department [address] [place] [address] Patient: BHAVANA HSAW/Age/Sex: 1955 - 67 - F Unit#: [id number] [facility] Mnemonic/Ordering Site: MAMDEXAAX/SPMAM Ordering Physician: MICHELLE BOB MD [facility] Axial Skeleton - 11/09/22 - 2538 Report Status:Signed HISTORY: The patient is a 67-year-old postmenopausal female smoker with clinical concern for metabolic bone disease. FINDINGS: Dual energy x-ray absorptiometry of the lumbar spine and femursis performed. The mean bone mineral density at L1-3 is 1.024 gm/cm2 which is88% of that of young normals and 97% of that of age matched controls. This yieldsa T- score of -1.2 and a Z-score of -0.3 which is diagnostic of osteopenia. The mean bone mineral density of the femurs bilaterally is 0.833 gm/pc6relwq is 83% of that of young normals and 92% of that of age matched controls.This yields a T-score of -1.4 and a Z-score of -0.6 which is diagnostic of osteopenia. The T-score of the right femoral neck is -1.3 and that of theleft femoral neck is -2.0 which is diagnostic of osteopenia. IMPRESSION: 1. Osteopenia. There has been an increase of 12.8% in bone mineraldensity in the lumbar spine since the prior examination of 03/08/2019. There hasbeen an increase of 3.5% in bone mineral density in the right femur and anincrease of 1.2% in bone mineral density in the left femur. 2. FRAX analysis yields a 10-year probability of major osteoporoticfracture of 9.8% and a 10-year probability of hip fracture of 2.4%. 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
--- OUTSIDE RECORDS SUMMARY | 2024-08-01 08:56 | XMS_ITS | Clinical Summary ---
Author Organization [facility] Address [address] [place] [address] [address] [place] [address] Care Team Providers Care Maintenance Carpenter Name Role Phone Unavailable Primary Care Provider Unavailabl e Immunizations Name Administration Dates Next Due Pfizer Covid-19 Vaccine 12+ 06/10/2021,,09/17/2020 Pfizer Covid-19 Vaccine 12+ Bivalent 07/25/2022 Social History Tobacco Use Types Packs/Day Years Used Date Smoking Tobacco: Never Assessed Comments Unknown Sex and Gender Information Value Date Recorded Sex Assigned at Female 07/25/2022 9:26 AM EST Legal Sex Female 9:22 AM EST Gender Identity Female 07/25/2022 9:26 AM EST Sexual Orientation Straight 07/25/2022 9: 26 AM EST Plan of Treatment Health Maintenance Due Date Last Done Comments CT Colonography 1955 Colonoscopy 1955 Colorectal Cancer Screening 1955 Depression Screening 1955 FIT DNA/Cologuard 1955 FIT 1955 FOBT 1955 SDOH Screening 1955 Sigmoidoscopy 1955 Alcohol/Substance Use Screening 1967 Tobacco Screening 1967 Hepatitis C Screening 08/11/1973 DTaP/Tdap/Td Vaccines (1 - Tdap) 08/11/1974 Mammogram 1995 Pneumococcal Vaccine: 50+ Years (1 of 1 - PCV) 08/11/2005 Zoster Vaccines (1 of 2) 08/11/2005 COVID-19 Vaccine (5 - 2023- season) 2024 07/25/2022, 06/10/2021, 10/08/2020, Additional history exists Influenza Vaccine (#1) 2024 RSV Patients and Patients Aged 60 years or older (1 - 1-dose 75+ series) 08/11/2030 HIB Vaccines Aged Out No longer eligi [...] patient's age to complete this topic Meningococcal Vaccine Aged Out No zeina celestine eligible based on patient's age to complete this topic RSV under 20 months Aged Out No longe r eligible based on patient's age to complete this topic Rotavirus Vaccines Aged Out No longer eligible based on patient's age to complete this topic Insurance [address] [address] STANDARD
[2024-08-01 09:39] LABS: Basophils Absolute Auto 0.1 X10*3/uL (0.0-0.2); Basophils Percent Auto 1.2 % (0-2); Eosinophils Absolute Auto 0.2 X10*3/uL (0.0-0.4); Eosinophils Percent Auto 4.2 % (0-4); Hematocrit 38.5 % (37.0-47.0); Hemoglobin 13.1 g/dl (12.0-16.0); Imm Gran Abs Auto 0.01 X10*3/uL (0.00-0.03); Imm Gran Pct Auto 0.2 % (0.0-0.4); Lymphocytes Absolute Auto 2.4 X10*3/uL (1.2-4.9); Lymphocytes Percent Auto 47.8 % (20-40); Mean Corpuscular Hemoglobin 30.8 pg (27.0-33.0); Mean Corpuscular Volume 90.4 fL (80.0-98.0); Mean Platelet Volume 11.2 fL (9.4-12.3); Monocytes Absolute Auto 0.6 X10*3/uL (0.1-1.2); Monocytes Percent Auto 11.3 % (2-11); Neutrophils Absolute Auto 1.8 x10*3/uL (2.0-8.3); Neutrophils Percent Auto 35.3 % (45-73); Platelet Count 281 X10*3/uL (160-400); Red Blood Count 4.26 X10*6/uL (4.20-5.50); Red Cell Distribution Width 14.6 % (11.0-16.0)
[2024-08-01 09:48] LABS: Estimated Average Glucose 148 mg/dL; Hemoglobin A1c % 6.8 % (<6.0)
[2024-08-01 10:08] LABS: Alanine Aminotransferase 13 U/L (0-31); Albumin Level 3.9 g/dL (3.5-5.0); Alkaline Phosphatase 75 U/L (39-117); Anion Gap 11 (12-20); Aspartate Amino Transferase 19 U/L (5-31); Bilirubin Total 0.5 mg/dL (0.0-1.0); Blood Urea Nitrogen 22 mg/dL (9-16); Calcium 9.5 mg/dL (8.4-10.2); Carbon Dioxide 30 mmol/L (22-29); Chloride 106 mmol/L (96-108); Cholesterol 124 mg/dL (<200); Estimated Glomerular Filt Rate 55; Glucose Random 135 mg/dL (60-115); HDL Cholesterol 44 mg/dL (>40); LDL Cholesterol Calculated 59 mg/dL (<100); Potassium 3.7 mmol/L (3.3-5.1); Sodium 143 mmol/L (135-145); Total Protein 7.4 g/dL (6.5-8.0); Triglycerides 105 mg/dL (<150)
[2024-08-01 10:37] LABS: Free T4 (Free Thyroxine) 1.76 ng/dL (0.71-1.85); Thyroid Stimulating Hormone 2.58 uIU/mL (0.32-4.0)
[2024-08-01 10:42] LABS: Folate 9.3 ng/mL (> or = 4.0); Vitamin B12 403 pg/mL (200-900)
[2024-08-01 11:31] LABS: Creatinine Urine 107.16 mg/dL; Microalbumin Urine < 5.0 mg/L
== END 2024-08-01 08:26 | disposition home or self-care (01) ==
LOC: HO.LAB 08:25
PROVIDERS: PCP Internal Medicine; Visit Provider Internal Medicine
DX: E11.65 Type 2 diabetes mellitus with hyperglycemia (principal); E78.00 Pure hypercholesterolemia, unspecified
CPT/HCPCS: 36415; 80053; 80061; 82043; 82306; 82570; 82607; 82746; 83036; 84439; 84443; 85025

== ENCOUNTER 2024-08-15 08:00 | Outpatient (AMB) | payer MEDICARE, MEDICAID, SELFPAY ==
--- NOTE | 2024-08-15 08:22 | A.OFFPC_ITS ---
Vital Signs 08/15/24 08:24 Height 4 ft 11 in Weight 190 lb 8 oz BMI 38.5 BP 124/68 Blood Pressure Location Lt brachial Position Sitting Pulse 47 L Pulse Source Pulse Oximeter Temp 97.1 F Temp Source Temporal Artery Scan Pulse Oximetry (%) 100 Oxygen Delivery Method Room Air Intake Visit Reasons: DM Intake Note: Patient is here to follow up on DM. 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 Accompanied by: Daughter Allergies ibuprofen [From Motrin] Allergy (Unknown, Verified 08/15/24 08:26) GI UPSET felodipine Adverse Reaction (Intermediate, Verified 08/15/24 08:26) leg swelling Medication List - Last Reconciled 08/15/24 by Nohelia Glez PA-C albuterol sulfate 2.5 mg (3 mL) inhalation Q4-6H PRN 90 days albuterol sulfate 90 mcg/actuation 2 inhalations PO Q4H PRN alendronate 70 mg PO QWEEK allopurinol 100 mg PO DAILY atorvastatin 10 mg PO DAILY blood pressure monitor (Blood Pressure Kit) As directed cane As directed cholecalciferol (vitamin D3) 50 mcg PO DAILY 90 days clonidine HCl 0.1 mg PO TID 90 days lili.stocking,knee,reg,xlrg As directed 20-30 mm HG famotidine 40 mg PO BID fluticasone propionate 110 mcg/actuation 2 inhalations inhalation BID 90 days fluticasone propionate 50 mcg/actuation (Flonase Allergy Relief) 1 spray intranasal DAILY hydrochlorothiazide 25 mg PO DAILY lisinopril 40 mg PO DAILY metoprolol succinate ER 150 mg (1.5 x 100 mg) PO DAILY 90 days prednisone 20 mg PO QAM pyridoxine (vitamin B6) 100 mg PO DAILY sennosides (senna) 17.2 mg (2 x 8.6 mg) PO BEDTIME 90 days Shower Chair As directed Tobacco use date assessed: 08/15/24 Fall risk assessment: No Falls in past year Last assessed Fall Risk: 08/15/24 Dental Screening Dental Screen Date: 08/15/24 Did you have a dental visit in the last 12 months?: No Did you have a dental problem in the last 6 months where you did not have access to dental care?: No Was dental information given to patient?: No HPI DM HPI Details 69-year-old female with past medical his tory of diabetes mellitus, asthma, GERD, tobacco abuse, hypertension, hypercholesterolemia, peripheral vascular disease and CKD last seen 04/2024 coming in for follow up.?In review of the notes, patient was seen by Urology 05/2024 continue surveillance monitoring and follow up in 1 year with renal ultrasound.?Patient was seen by Podiatry 08/13/2024 toenails were debrided and left plantar fascial ligament was injected with Kenalog x-ray both feet and advised to follow up in 4-6 weeks. Presenting with follow-up concerns for chronic conditions and review of recent blood work results. - Hypertension: Stably managed, with blo od pressure readings noted as satisfactory during the visit. - Asthma: Increased wheezing noted, like ly due to lack of medication access in the last month caused by refill and insurance issues. - Type 2 Diabetes Mellitus: A1c improved from 7.6% to 6.8% with lifestyle interventions; no medication required currently. - Nicotine Dependence persists, with pat ient continuing to smoke and declining cessation support at this time. ON LICENSE OF [facility] Medical History Irritable bowel syndrome with both constipation and diarrhea Renal cyst Asthma exacerbation Annual physical exam Renal calculi Abscess of nipple, left On beta saniya at home History of anemia IBS (irritable bowel syndrome) GERD (gastroesophageal reflux disease) History of memory loss Elevated cholesterol HTN (hypertension) Asthma Colon cancer screening Seborrheic keratosis Knee pain, right Gastric ulcer Type 2 diabetes mellitus with hyperglycemia Tobacco abuse Obesity (BMI 30-39.9) Otitis externa Osteopenia Illiterate Osteoarthritis Surgical History History of arthroscopy of left knee Hx of section History of hysterectomy H/O colonoscopy with polypectomy History of esophagogastroduodenoscopy (EGD) H/O cystoscopy H/O oophorectomy History of total knee replacement Family History Father Prostate cancer Mother Brain tumor Social History Household Members: None Housing: Apartment Alcohol intake: current Comment: once q 3 month 1 drinks Patient Tobacco Use Status: Current everyday Tobacco user Tobacco use type: Cigarette Cigarette Packs Per Day: 0.5 Cigarettes Per Day: 3 Years Smoked: 2-3 cigarette a day e-Cigarette/Vaping Use: Never Used Second Hand Smoke Exposure: Yes service: No Current occupational status: disabled Cognitive needs: Yes Hearing needs: No Vision needs: No Questionnaire PHQ-9 Over the last 2 weeks, how often have you been bothered by any of the following problems? 1. Little interest or pleasure in doing things: not at all 2. Feeling down, depressed, or hopeless: not at all 3. Trouble falling or staying asleep, or sleeping too much: not at all 4. Feeling tired or having little energy: not at all 5. Poor appetite or overeating: not at all 6. Feeling bad about yourself - or that you are a failure or have let yourself or your family down: not at all 7. Trouble concentrating on things, such as reading the newspaper or watching television: not at all 8. Moving or speaking so slowly that other people could have noticed. Or the opposite - being so fidgety or restless that you have been moving around a lot more than usual: not at all 9. Thoughts that you would be better off or of hurting yourself in some way: not at all Total score: 0 Depression Screening Interpretation: Negative Depression Screening Done: Yes Source: Developed by Drs. Konstantin Langston, Saskia Sales, Luciano Leach and colleagues, with an educational liya from [employer]. Thrive Questionnaire Date Thrive assessed: 08/15/24 I am a: Patient What is your living situation today?: I have a steady place to live Within the past 12 months, did the food you bought not last and you didn't have the money to get more?: Never true Within the past 12 months, did you worry whether your food would run out before you got money to buy more?: Never true Do you have trouble paying for medicines?: No Do you have trouble getting transportation to medical appointments?: No Do you have trouble paying your heating and electricity bill?: No Do you have trouble taking care of your child, family member or friend?: No Do you have trouble with day-to-day activities such as bathing, preparing meals, shopping, managing finances, etc.?: No Are you currently unemployed and looking for a job?: No Are you interested in more education?: No Please select the resources that you would like help with: None Currently or been in a relationship where the following occur: No concerns reported THRIVE Score: 0 AUDIT C Alcohol Use Questionnaire (AUDIT-C) 1. How often do you have a drink containing alcohol?: Never Total Score: 0 AKILAH-7 AMB Questionnaire AKILAH-7 Date AKILAH - 7 assessed: 08/15/24 Feeling nervous, anxious, or on edge: 0 = Not at all Not being able to stop or control worryin = Not at all Worrying too much about different things: 0 = Not at all Trouble relaxin = Not at all Being so restless that it is hard to sit still: 0 = Not at all Becoming easily annoyed or irritable: 0 = Not at all Feeling afraid as if something awful might happen: 0 = Not at all Total AKILAH-7 score (0-4 normal; 5-9 mild; 10-14 moderate; 15-21 severe): 0 Source: Developed by Drs. Konstantin Langston, Saskia Sales, Luciano Leach and colleagues, with an educational liya from [employer]. Review of Systems Const Denies body aches, Denies chills, Denies fever(s), Denies headache(s) and Denies poor appetite Eyes Reports no additional complaints ENT Denies dysphagia, Denies dizziness, Denies headache(s) and Denies odynophagia Card Denies chest pain, Denies syncope, Denies edema, Denies irregular heart rhythm, Denies lightheadedness and Reports dyspnea Resp Reports cough and Reports dyspnea GI Denies abdominal pain, Denies constipation, Denies dysphagia, Denies diarrhea, Denies nausea, Denies odynophagia and Denies vomiting Reports no additional complaints Musc Reports no additional complaints and Denies abnormal gait Skin/Breast Reports system reviewed and no additional complaints, except as documented Neuro Denies abnormal gait, Denies dizziness, Denies syncope and Denies headache(s) Psych Reports no additional complaints Physical exam (Primary Care) Vital Signs: Last Vital Signs Temp 97.1 F 08/15/24 08:24 Pulse 47 L 08/15/24 08:24 BP 124/68 08/15/24 08:24 Pulse Ox 100 08/15/24 08:24 Oxygen Delivery Method Room Air 08/15/24 08:24 BMI result Body Mass Index 38.5 Tobacco/Smoking Status: Tobacco use Status Tobacco use date assessed 08/15/24 08/15/24 08:25 Patient Tobacco Use Status Current everyday Tobacco 08/15/24 08:29 Tobacco use type Cigarette 08/15/24 08:29 e-Cigarette/Vaping Use Never Used 08/15/24 08:29 PHQ-9: PHQ-9 Score PHQ-9: Total score 0 08/15/24 08:25 Depression Screening Interpretation: Negative Thrive Assessment: Date of Thrive Assessment Date Thrive assessed 08/15/24 08/15/24 08:25 Currently or been in a relationship where the following occur: No concerns reported Const General: cooperative, healthy appearing, comfortable and no acute distress Orientation/consciousness: patient oriented x3 HENMT Head: Yes normocephalic Ears: hearing grossly normal bilaterally General nose exam: Normal external nose present Eyes General: appearance normal, both eyes and all related structures Conjunctivae: conjunctivae normal Neck Neck: Yes full ROM and Yes no lymphadenopathy Resp Effort & Inspection: normal respiratory effort Auscultation: no crackles, no rales, no rhonchi and wheezes throughout Cardio Rate: regular rate Rhythm: regular rhythm Skin General skin exam: no rashes or lesions noted Neuro General: patient oriented x3 Gait exam (Neuro): Normal gait present Extrem General: Yes normal to inspection, Yes full ROM and No edema Psych Affect: normal affect Attitude: cooperative Insight: Good insight present (Psych) Judgement: Good judgement present (Psych) Office Procedures Nebulizer Treatment Nebulizer Treatment Details: SpO2 100% pre and post treatment. 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 use: without laborer marine terminal use Tobacco abuse Z72.0 Obesity (BMI 30-39.9) E66.9 Mild intermittent asthma without complication J45.20 Asthma severity: mild Asthma persistence: intermittent Asthma complication type: uncomplicated CPT Codes Nebulizer Treatment - Nebulizer Treatment, initial or subsequent: [id number] zer/MDI RX initial, or Nebulizer Subsequent Treatment ([id number]) Assessment & Plan Assessment & Plan (1) CKD (chronic kidney disease): Code(s): N18.9 - Chronic kidney disease, unspecified Category: Medical Plan: Stay well hydrated and continue to avoid kidney irritants such as NSAIDs. Monitor blood work. (2) HTN (hypertension), benign: Code(s): I10 - Essential (primary) hypertension Category: Medical Plan: Continue on current blood pressure medication. Avoid salt intake and encourage healthy diet and regular exercise. (3) High cholesterol: Code(s): E78.00 - Pure hypercholesterolemia, unspecified Category: Medical Plan: Avoid foods that are high in cholesterol such as red meat, fried foods, eggs and baked goods. Triglyceride goal of less than 150 and LDL goal of less than 100. Continue on atorvastatin 10 (4) GERD (gastroesophageal reflux disease): Code(s): K21.9 - Gastro-esophageal reflux disease without esophagitis Category: Medical Qualifiers: Esophagitis presence: without esophagitis Qualified Code(s): K21.9 - Gastro-esophageal reflux disease without esophagitis Plan: Avoid trigger foods such as citrus, tomato products, soda, caffeine, spicy foods and other foods that may be irritating to your stomach. Avoid laying flat 3-4 hours after eating and elevate the head of the bed 30 degrees to prevent acid from moving into the esophagus. Continue on famotidine (5) Type 2 diabetes mellitus with hyperglycemia: Comment: Dr. 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 Although fruits are generally healthy they should be eaten in moderation as they are still high in sugar. Hemoglobin A1c go al of less than 7%. Was recent A1c 6.8% without medical management. (6) Tobacco abuse: Code(s): Z72.0 - Tobacco use Category: Medical Plan: Smoking cigarettes and the use of tobacco can be harmful. We discussed the importance of stopping and options to aid in smoking cessation. Declining nicotine replacement therapy at this time (7) Obesity (BMI 30-39.9): Comment: Diet and exercise Code(s): E66.9 - Obesity, unspecified Category: Medical Plan: Healthy diet and regular exercise is encouraged. (8) Asthma: Comment: Code(s): J45.909 - Unspecified asthma, uncomplicated Category: Medical Qualifiers: Asthma severity: mild Asthma persistence: intermittent Asthma complication type: uncomplicated Qualified Code(s): J45.20 - Mild intermittent asthma, uncomplicated Plan: Asthma currently controlled on present medications. Continue on inhalers. Avoid triggers such as allergies. Patient has been without her inhalers both the Flovent and albuterol rescue inhaler for over 1 month. On exam wheezing throughout the lungs inspiratory and expiratory. DuoNeb was given in the office today with improvement in wheezing in bilateral lungs. Refilled all prescription inhalers and advised patient to reach out if she is unable to obtain these prescriptions. Plan Management of Type 2 Diabetes Mellitus will proceed with continued lifestyle interventions, as current strategies have successfully reduced A1c. Asthma care will include a breathing treatment today and refills for inhalers to address wheezing. Vitamin D supplementation will be increased, considering seasonal and geographical influences on deficiency. Resources for smoking cessation remain available, with future discussions encouraged if the patient becomes interested. Prescription refill processes will be evaluated to minimize future disruptions for asthma care. This note was constructed using voice recognition software. While every effort has been made to ensure accuracy and making line worker, still areas may have been included sometimes these areas may affect the content or meeting of the given symptoms. Total time spent caring for the patient today was 20 minutes. This includes time spent before the visit reviewing the chart, time spent during the visit, and time spent after the visit and documentation. Patient was informed and verbally consented to the use of an ambient scribe for clinic note documentation during this visit. Medications: Refilled albuterol sulfate 2.5 mg (3 mL) inhalation Q4-6H 90 days PRN 180 mL 2RF shortness of breath or wheezing J45.20 - Mild intermittent asthma, uncomplicated albuterol sulfate 90 mcg/actuation 2 inhalations PO Q4H PRN 8.5 grams 2RF bronchospasm J45.20 - Mild intermittent asthma, uncomplicated fluticasone propionate 110 mcg/actuation 2 inhalations inhalation BID 90 days 3 ea 3RF R79.89 - Other specified abnormal findings of blood chemistry
[2024-08-15 08:24] VITALS: BP 124/68; PULSE 47; TEMP 36.2; O2SAT 100; BMI 38.5
== END 2024-08-15 09:18 | disposition home or self-care (01) ==
LOC: HO.HMCH 08:01
PROVIDERS: PCP Internal Medicine
DX: I12.9 Hypertensive chronic kidney disease with stage 1 through stage 4 chronic kidney disease, or unspecified chronic kidney disease (principal); E11.65 Type 2 diabetes mellitus with hyperglycemia; N18.9 Chronic kidney disease, unspecified; E78.00 Pure hypercholesterolemia, unspecified; K21.9 Gastro-esophageal reflux disease without esophagitis; Z72.0 Tobacco use; E66.9 Obesity, unspecified; J45.20 Mild intermittent asthma, uncomplicated

== ENCOUNTER → 2024-08-15 08:00 | Outpatient (BNVA) | payer MEDICARE, MEDICAID, SELFPAY | PROVIDERS: PCP Internal Medicine | DX: E11.22 Type 2 diabetes mellitus with diabetic chronic kidney disease (principal); E11.51 Type 2 diabetes mellitus with diabetic peripheral angiopathy without gangrene; E11.65 Type 2 diabetes mellitus with hyperglycemia; I12.9 Hypertensive chronic kidney disease with stage 1 through stage 4 chronic kidney disease, or unspecified chronic kidney disease; J45.909 Unspecified asthma, uncomplicated; K21.9 Gastro-esophageal reflux disease without esophagitis; E78.00 Pure hypercholesterolemia, unspecified; E66.9 Obesity, unspecified; J45.20 Mild intermittent asthma, uncomplicated; R79.89 Other specified abnormal findings of blood chemistry; N18.9 Chronic kidney disease, unspecified; Z72.0 Tobacco use; Z68.38 Body mass index [BMI] 38.0-38.9, adult | CPT/HCPCS: 94640; 96127; 99212 ==

== ENCOUNTER 2024-11-14 08:15 | Outpatient (AMB) | payer MEDICARE, MEDICAID, SELFPAY ==
--- OUTSIDE RECORDS SUMMARY | 2024-11-14 08:28 | XMS_ITS | Clinical Summary ---
Author Organization [address] [place] [address] Address [address] [place] [address] Phone Care Team Providers Care Healthcare Interpreter Name Role Phone Michelle Bob MD Primary Care Provider [phone] Allergies Active Allergy Reactions Criticality Noted Date [...] CU[employer]O [employer]ECESAR[employer] FOR CONSTIPATION 5 Active Hospital, Clinic, or Other Facility Administered Medication Ordered Dose Route Frequency Start Date End Date Status lidocaine (PF) (XYLOCAINE-MPF) 1 % injection 0.5 mLIndications:Tendin itis of left ankle .5 mL inj Once PRN Procedure 10/24/2024 10/24/2024 Ended triamcinolone acetonide (KENALOG-40) 40 mg/mL injection 20 mgIndications:Tendin itis of left ankle 20 mg IAtc Once PRN Procedure 10/24/2024 10/24/2024 Ended Encounters Date Type Department Care Team Description 10/24/2024 9:45 AM EDT Office Visit Orthopedic Surgery [facility] [address] [phone] Harsha Burnham DPM Arthritis of left ankle (Primary Dx); Tendinitis of left ankle; Dermatophytosis of nail; Arthritis of right ankle; Diabetic mononeuropathy simplex (CMS/HCC V24, CMS/HCC V28); Type II diabetes mellitus with peripheral circulatory disorder (CMS/HCC V24, CMS/HCC V28); Pain in toe of left foot; Pain in toe of right foot 09/17/2024 10:30 AM EDT Office Visit Orthopedic Surgery [facility] 250 175 [facility] [address] [place] [phone] Burnham, Christopher M, DPM Tendinitis of right ankle (Primary Dx); Plantar fascial fibromatosis; Arthritis of right ankle; Follow-up exam; Dermatophytosis of nail; Type II diabetes mellitus with peripheral circulatory disorder ([facility] [place]24, [facility] V28); Diabetic mononeuropathy simplex ([facility] V24, [facility] V28) from Last 3 Months Social History [...] Oxygen Concentration - - Weight 83.9 kg (184 lb 15.5 oz) 10/24/2024 9:01 AM EDT Height 149.9 cm (4' 11.02 ) 10/24/2024 9:01 AM E DT Body Mass Index 37.34 10/24/2024 9:01 AM EDT Plan of Treatment Upcoming Encounters Date Type Department Care Team (Late st Contact Info) Description 12/26/2024 9:15 AM EDT Office Visit Orthopedic Surgery - [place] [address] [phone] Harsha Burnham, DPM [address] [address] 01/01/2025 7:30 AM EDT Appointment [facility] at [address] [phone] Health Maintenance Due Date Last Done Comments [...] Procedure Name Priority Date/Time Associated Diagnosis Comments INJECTION TENDON OR LIGAMENT Routine 10/24/2024 9:45 AM EDT Tendinitis of left ankle XR FOOT 3+ VIEWS BILAT Routine 09/17/2024 10:50 AM EDT Follow-up exam INJECTION TENDON OR LIGAMENT Routine 09/17/2024 10:30 AM EDT Tendinitis of right ankle Arthritis of right ankle [facility] SCREENING DIGITAL Routine 01/01/2024 9:44 AM EDT Encounter for screening mammogram for malignant neoplasm of breast [facility] DEXA AXIAL SKELETON Routine 11/10/2022 7:43 AM EDT Other specified disorders of bone density and structure, multiple sites from Last 3 Months or Most Recently Relevant to Health Maintenance Results * Injection tendon or ligament (10/24/2024 9:45 AM EDT) Narrative Harsha Burnham DPM - 10/24/2024 9:45 AM EDT Harsha Burnham DPM 10/24/2024 12:37 PM Injection tendon or ligament Indications: pain Details: 25 G needle Medications: 0.5 mL lidocaine (PF) 1 %; 20 mg triamcinolone acetonide 40 mg/mL Informed Consent: Site: Foot ligament tendon Harsha Burnham DPM IN CLINIC/BEDSIDE ORDERAB LES Final Result * XR Foot 3+ Views bilat (09/17/2024 10:50 AM EDT) Anatomical Region Laterality Modality Lower Extremities, Foot Bilateral Computed Radiography Narrative 09/17/2024 12:15 PM EDT Right foot 3 views No fracture. No radiopaque foreign joint spaces Arthritis moderate severe midtarsal joint mild of subtalar joint and forefoot Foot position Pes planus with Talus navicular uncovering decreased calcaneal inclination anterior displaced symes line talus navicular joint to calcaneal cuboid joint Left foot 3 views No fracture. No radiopaque foreign joint spaces Arthritis moderate severe midtarsal joint mild of subtalar joint and forefoot Foot position Pes planus with Talus navicular uncovering decreased calcaneal inclination anterior displaced symes line talus navicular joint to calcaneal cuboid joint Harsha Burnham DPM IMG XR PROCEDURES Final R esult * Injection tendon or ligament (09/17/2024 10:30 AM EDT) Harsha Nolan DPM - 09/17/2024 10:30 AM EDT Harsha Burnham DPM 09/17/2024 12:16 PM Injection tendon or ligament Indications: pain Details: 25 G needle Medications: 0.5 mL lidocaine (PF) 1 %; 20 mg triamcinolone acetonide 40 mg/mL Informed Consent: Site: Foot ligament tendon us Harsha Burnham DPM IN CLINIC/BEDSIDE ORDERAB LES Final Result * [facility] SCREENING DIGITAL (01/01/2024 9:44 AM EDT) Anatomical Region Laterality Modality Mammography 01/01/2024 6:45 AM EDT Narrative 01/01/2024 9:44 AM EDT Diagnostic Imaging Department [address] [place] [address] Patient: BHAVANA SHAW /Age/Sex: 1955 - 68 - F Unit#: [id number] Location/Status: [facility] CLI Mnemonic/Ordering Site: [facility] Ordering Physician: MICHELLE BOB MD [facility] Screening Digital - 01/01/24721 Report Status:Signed EXAM: [facility] Screening Digital EXAM DATE AND TIME: 01/01/2024 7:23 AM HISTORY: Screening. Right breast biopsy in 2005, pathology benign. COMPARISON: 12/26/22, 12/25/21, 12/17/20 TECHNIQUE: Bilateral digital breast tomosynthesis was performed in the CC and MLO projections. Computer aided detection with Sonar.me 3D 3.1 was employed. TISSUE DENSITY: b. There are scattered areas of fibroglandular density. FINDINGS: No suspicious masses, grouped microcalcifications, or areas of architectural distortion are seen. Round microcalcifications are scattered and occur in small groups bilaterally, showing no significant change, considered benign. Vascular calcification is present. The skin is unremarkable. IMPRESSION: Stable mammographic appearance of the breasts. No evidence of malignancy is seen. A negative mammogram in the presence of a clinically suspicious palpable abnormality does not preclude the possibility of malignancy or alter the indications for biopsy. BI-RADS: Category 2: Benign RECOMMENDATION(S): 1: Routine screening mammogram BILATERAL in 1 year. Dictating Physician: AMELIE BOLTON MD Electronically Signed by: AMELIE BOLTON MD Dic Date/Time: 01/01/24942 Sign date/Time: 01/01/24943 Procedure Note Amelie Bolton MD - 03/06/2024 Diagnostic Imaging Department [address] [place] [address] Patient: BHAVANA SHAW /Age/Sex: 1955 - 68 - F Unit#: [id number] Location/Status: [facility] CLI Mnemonic/Ordering Site: [facility] Ordering Physician: MICHELLE BOB MD [facility] Screening Digital - 01/01/24 - 0722 Report Status:Signed EXAM: [facility] Screening Digital EXAM DATE AND TIME: 01/01/2024 7:23 AM HISTORY: Screening. Right breast biopsy in 2005, pathology benign. COMPARISON: 12/26/22, 12/25/21, 12/17/20 TECHNIQUE: Bilateral digital breast tomosynthesis was performed in the CCand MLO projections. Computer aided detection with Sonar.me 3D 3.1was employed. TISSUE DENSITY: b. There [...] MD IMG BI PROCEDURES Final Result * [facility] DEXA AXIAL SKELETON (11/10/2022 7:43 AM EDT) Anatomical Region Laterality Modality Mammography 11/09/2022 12:3 3 PM EDT Narrative 11/10/2022 7:43 AM EDT Diagnostic Imaging Department [address] [place] [address] Patient: BHAVANA SHAW /Age/Sex: 1955 - 67 - F Unit#: [id number] Location/Status: SPDIMAM/REG CLI [facility] Ordering Physician: MICHELLE BOB MD [facility] Dexa [...] 92% of that of age matched controls. This yields a T-score of -1.4 and a Z-score of -0.6 which is diagnostic of osteopenia. The T-score of the right femoral neck is -1.3 and that of the left femoral neck is -2.0 which is diagnostic of osteopenia. IMPRESSION: 1. Osteopenia. There has been an increase of 12.8% in bone mineral density in the lumbar spine since the prior examination of 03/08/2019. There has been an increase of 3.5% in bone mineral density in the right femur and an increase of 1.2% in bone mineral density in the left femur. 2. FRAX analysis yields a 10-year probability of major osteoporotic fracture of 9.8% and a 10-year probability of hip fracture of 2.4%. Code 53117 Dictating Physician: LEATHA TRIPP MD Electronically Signed by: LEATHA TRIPP MD Dic Date/Time: 11/10/22 0741 Sign date/Time: 11/10/22 0743 Procedure Note Leatha Tripp MD - 06/27/2023 Diagnostic Imaging Department [address] [place] [address] Patient: MIL SHAWGUILLERMINA Jung/Age/Sex: 1955 - 67 - F Unit#: [id number] Location/Status: [facility] CLI Mnemonic/Ordering Site: [facility] Ordering Physician: MICHELLE BOB MD [facility] Dexa Axial Skeleton - 11/09/22 - 8220 Report Status:Signed HISTORY: The patient is a [...] density of the femurs bilaterally is 0.833 gm/pm2fcyuo is 83% of that of young normals [...] probability of hip fracture of 2.4%. Code 55324 Dictating Physician: LEATHA TRIPP MD Electronically Signed by: LEATHA TRIPP MD Dic Date/Time: 11/10/22 0741 Sign date/Time: 11/10/22 0743 Michelle Bob MD IMG BI PROCEDURES Final Result from Last 3 Months or Most Recently Relevant to Health Maintenance Insurance [place] - [place]ARE Care Teams Healthcare Interpreter Relationship Specialty Start Date End Date Michelle Bob MD [address] [place] [address] [address] [facility] [place] [facility] [place] [address] PCP - General Internal Medicine 06/13/24
--- NOTE | 2024-11-14 08:31 | A.OFFPC_ITS ---
Vital Signs 11/14/24 08:45 11/14/24 09:49 Height 4 ft 11 in Weight 184 lb 6 oz BMI 37.2 BP 136/84 146/88 H Blood Pressure Location Lt brachial Lt brachial Position Sitting Pulse 52 Pulse Source Pulse Oximeter Temp 98.5 F Temp Source Oral Pulse Oximetry (%) 95 Oxygen Delivery Method Room Air Intake Visit Reasons: Preop cataract surgery Ingot Caster Required: No Accompanied by: Self / Same As Patient Allergies ibuprofen (From Motrin) Allergy (Unknown, Verified 11/15/24 08:32) GI UPSET felodipine Adverse Reaction (Intermediate, Verified 11/15/24 08:32) leg swelling Medication List - Last Reconciled 11/14/24 by RACHELLE Evans albuterol sulfate 2.5 mg (3 mL) inhalation Q4-6H PRN 90 days albuterol sulfate 90 mcg/actuation 2 inhalations PO Q4H PRN alendronate 70 mg PO QWEEK allopurinol 100 mg PO DAILY atorvastatin 10 mg PO DAILY blood pressure monitor (Blood Pressure Kit) As directed cane As directed cholecalciferol (vitamin D3) 50 mcg PO DAILY 90 days clonidine HCl 0.1 mg PO TID 90 days lili.stocking,knee,reg,xlrg As directed 20-30 mm HG famotidine 40 mg PO BID fluticasone furoate 100 mcg/actuation (Arnuity Ellipta) 1 inh inhalation DAILY fluticasone propionate 50 mcg/actuation (Flonase Allergy Relief) 1 spray intranasal DAILY hydrochlorothiazide 25 mg PO DAILY lisinopril 40 mg PO DAILY metoprolol succinate ER 150 mg (1.5 x 100 mg) PO DAILY 90 days prednisone 20 mg PO QAM pyridoxine (vitamin B6) 100 mg PO DAILY sennosides (senna) 17.2 mg (2 x 8.6 mg) PO BEDTIME 90 days Shower Chair As directed Tobacco use date assessed: 11/14/24 Fall risk assessment: No Falls in past year Last assessed Fall Risk: 11/14/24 Dental Screening Dental Screen Date: 11/14/24 Did you have a dental visit in the last 12 months?: No Did you have a dental problem in the last 6 months where you did not have access to dental care?: No Was dental information given to patient?: No HPI Preop cataract surgery HPI Details The patient is a 69-year-old female. Patient of Dr. Sanchez, last seen in office on 08/15/24 by RANDALL Pozo Patient is presenting today for preoperative evaluation for cataract surgery. She reports longstanding cataract due to diabetes significantly affecting her vision. Reports that her eyes are always blurry and itchy and feels uncomfortable. It is has been going on for awhile and it is bothersome to her. Right eye 11/25/24 and Left eye 12/16/24. Surgeon/location: Cisco Estrada at [facility] Anesthesia: Mac The patient denies any post surgery hypothermia or clotting disorder and she is not on any blood thinner or disease modifying antirheumatic drugs (DMARDs). Significant past medical history CKD, asthma, HTN, GERD, type 2 diabetes, obesity, tobacco abuse wheezes in bilateral smoking 4 cigarettes a day bp 146/88 but she is taking her medications at night instead The patient has a follow appt in the morning, will reeval blood pressure then lower leg cramps probably from her atorvastatin-encouraged the patient to take this at night instead and to start magnesium oxide 400 mg at night to help with this. [facility] Medical History Irritable bowel syndrome with both constipation and diarrhea Renal cyst Asthma exacerbation Annual physical exam Renal calculi Abscess of nipple, left On beta saniya at home History of anemia IBS (irritable bowel syndrome) GERD (gastroesophageal reflux disease) History of memory loss Elevated cholesterol HTN (hypertension) Asthma Colon cancer screening Seborrheic keratosis Knee pain, right Gastric ulcer Type 2 diabetes mellitus with hyperglycemia Tobacco abuse Obesity (BMI 30-39.9) Otitis externa Osteopenia Illiterate Osteoarthritis Surgical History History of arthroscopy of left knee Hx of section History of hysterectomy H/O colonoscopy with polypectomy History of esophagogastroduodenoscopy (EGD) H/O cystoscopy H/O oophorectomy History of total knee replacement Family History Father Prostate cancer Mother Brain tumor Social History Household Members: None Housing: Apartment Alcohol intake: current Comment: once q 3 month 1 drinks Patient Tobacco Use Status: Current everyday Tobacco user Tobacco use type: Cigarette Cigarette Packs Per Day: 0.5 Cigarettes Per Day: 4 Years Smoked: 2-3 cigarette a day e-Cigarette/Vaping Use: Never Used Second Hand Smoke Exposure: Yes service: No Current occupational status: disabled Cognitive needs: Yes Hearing needs: No Vision needs: No Questionnaire PHQ-9 Over the last 2 weeks, how often have you been bothered by any of the following problems? 1. Little interest or pleasure in doing things: not at all 2. Feeling down, depressed, or hopeless: not at all 3. Trouble falling or staying asleep, or sleeping too much: not at all 4. Feeling tired or having little energy: not at all 5. Poor appetite or overeating: not at all 6. Feeling bad about yourself - or that you are a failure or have let yourself or your family down: not at all 7. Trouble concentrating on things, such as reading the newspaper or watching television: not at all 8. Moving or speaking so slowly that other people could have noticed. Or the opposite - being so fidgety or restless that you have been moving around a lot more than usual: not at all 9. Thoughts that you would be better off or of hurting yourself in some way: not at all Total score: 0 Depression Screening Interpretation: Negative Depression Screening Done: Yes Source: Developed by Drs. Konstantin Langston, Saskia Sales, Luciano Leach and colleagues, with an educational liya from [employer]. Thrive Questionnaire Date Thrive assessed: 11/14/24 I am a: Patient What is your living situation today?: I have a steady place to live Within the past 12 months, did the food you bought not last and you didn't have the money to get more?: Never true Within the past 12 months, did you worry whether your food would run out before you got money to buy more?: Never true Do you have trouble paying for medicines?: No Do you have trouble getting transportation to medical appointments?: No Do you have trouble paying your heating and electricity bill?: No Do you have trouble taking care of your child, family member or friend?: No Do you have trouble with day-to-day activities such as bathing, preparing meals, shopping, managing finances, etc.?: No Are you currently unemployed and looking for a job?: No Are you interested in more education?: No Please select the resources that you would like help with: None Currently or been in a relationship where the following occur: No concerns reported THRIVE Score: 0 AUDIT C Alcohol Use Questionnaire (AUDIT-C) 1. How often do you have a drink containing alcohol?: Never 3. How often do you have six or more drinks on one occasion?: Never Total Score: 0 AKILAH-7 AMB Questionnaire AKILAH-7 Date AKILAH - 7 assessed: 11/14/24 Feeling nervous, anxious, or on edge: 0 = Not at all Not being able to stop or control worryin = Not at all Worrying too much about different things: 0 = Not at all Trouble relaxin = Not at all Being so restless that it is hard to sit still: 0 = Not at all Becoming easily annoyed or irritable: 0 = Not at all Feeling afraid as if something awful might happen: 0 = Not at all Total AKILAH-7 score (0-4 normal; 5-9 mild; 10-14 moderate; 15-21 severe): 0 Source: Developed by Drs. Konstantin Langston, Saskia Sales, Luciano Leach and colleagues, with an educational liya from [employer]. Review of Systems Const Denies headache(s) Eyes Reports blurry vision and Denies loss of vision ENT Denies vertigo, Denies dizziness, Denies headache(s) and Denies sore throat Card Denies chest pain, Denies leg edema and Denies lightheadedness Resp Denies cough, Denies hemoptysis and Reports wheezing (smoking about 4 cigarettes a day) GI Denies abdominal pain, Denies melena, Denies constipation, Denies diarrhea and Denies vomiting Denies urinary frequency, Denies dysuria and Denies urinary urgency Musc Denies arthralgias, Denies joint swelling, Reports muscle cramps (in lower legs), Denies numbness and Denies tingling Neuro Denies Abnormal speech present, Denies behavioral changes, Denies vertigo, Denies dizziness, Denies headache(s), Denies loss of vision, Denies memory loss, Denies numbness and Denies tingling Psych Denies anxiety, Denies behavioral changes, Denies depression, Denies memory loss and Denies panic attacks Thiago/Lymph Denies easy bleeding and Denies easy bruising Aller/Immun Reports wheezing (smoking about 4 cigarettes a day) Physical exam (Primary Care) Vital Signs: Last Vital Signs Temp 98.5 F 11/14/24 08:45 Pulse 52 11/14/24 08:45 BP 146/88 H 11/14/24 09:49 Pulse Ox 95 11/14/24 08:45 Oxygen Delivery Method Room Air 11/14/24 08:45 BMI result Body Mass Index 37.2 Tobacco/Smoking Status: Tobacco use Status Tobacco use date assessed 11/14/24 11/14/24 08:51 Patient Tobacco Use Status Current everyday Tobacco 11/14/24 08:31 Tobacco use type Cigarette 11/14/24 08:31 e-Cigarette/Vaping Use Never Used 11/14/24 08:31 PHQ-9: PHQ-9 Score PHQ-9: Total score 0 11/14/24 08:51 Depression Screening Interpretation: Negative Thrive Assessment: Date of Thrive Assessment Date Thrive assessed 11/14/24 11/14/24 08:51 Currently or been in a relationship where the following occur: No concerns reported Const General: healthy appearing, no acute distress, alert and awake Nutritional Appearance: well nourished Orientation/consciousness: oriented to person, oriented to place and oriented to time HENMT Ears: TM's normal bilaterally General nose exam: Normal nasal mucous membranes and turbinates present Eyes Conjunctivae: conjunctivae normal Sclerae: sclerae normal Pupils: Equal, round and reactive pupils present Neck Neck: Yes no lymphadenopathy and Yes no JVD Thyroid: Thyroid normal Carotids: no bruits Resp Effort & Inspection: normal respiratory effort and not tachypneic Auscultation: no crackles, no rales, no rhonchi and no wheezes Cardio Rate: regular rate Rhythm: regular rhythm Heart sounds: no murmurs and normal S1 and S2 GI Palpation (GI): Soft to palpation, nontender, no hepatomegaly and no splenomegaly Auscultation: normal bowel sounds General: Yes no CVA tenderness Back/Spine/Pelvis Back: no CVA tenderness Skin General skin exam: no rashes or lesions noted and dry skin Neuro General: oriented to person, oriented to place and oriented to time Cranial nerves: Yes Equal, round and reactive pupils present Speech: No Abnormal speech present Gait exam (Neuro): Normal gait present Motor exam (neuro): no tremor noted Extrem Right upper extremity: full ROM Left upper extremity: full ROM Right lower extremity: full ROM; no edema Left lower extremity: full ROM; no edema Psych Mental Status: mental status grossly normal Speech and movement: Normal speech and movement present Affect: normal affect Attitude: cooperative Thought process: Normal thought process present Results Reviewed Results Reviewed: Laboratory Tests 11/14/24 11/14/24 10:35 10:40 WBC 6.3 RBC 4.31 Hgb 13.2 Hct 39.6 MCV 91.9 MCH 30.6 MCHC 33.3 RDW 14.8 Plt Count 237 MPV 11.0 Sodium 140 Potassium 3.9 Chloride 104 Carbon Dioxide 28 Anion Gap 12 BUN 23 H Creatinine 1.27 Estimated GFR 42 Fasting Glucose 131 H Estimat Average Glucose 148 Hemoglobin A1c % 6.8 H Calcium 9.6 Total Bilirubin 0.9 AST 19 ALT 13 Alkaline Phosphatase 77 Total Protein 7.4 Albumin 4.3 Triglycerides 76 Cholesterol 144 LDL Cholesterol, Calc 62 HDL Cholesterol 67 25-OH Vitamin D Total 18.7 L TSH 1.88 Urine Color Yellow Urine Appearance Clear Urine pH 5.5 Ur Specific Grant 1.020 Urine Protein Negative Urine Glucose (UA) Negative Urine Ketones Negative Urine Blood Trace H Urine Nitrite Negative Ur Leukocyte Esterase Negative Urine RBC 0-2 Urine WBC 0-5 Ur Squamous Epith Cells 3-5 Urine Bacteria 1+ Hyaline Casts 0-2 Coding Level of Care Code Est Pt Level 4 (84796) Diagnoses Preoperative clearance Z01.818 HTN (hypertension), benign I10 High cholesterol E78.00 Stage 3a chronic kidney disease N18.31 Chronic kidney disease stage: stage 3 (moderate) Chronic kidney disease stage 3 subtype: stage 3a (GFR 45-59) Mild intermittent asthma without complication J45.20 Asthma severity: mild Asthma persistence: intermittent Asthma complication type: uncomplicated Tobacco abuse Z72.0 Time Spent (min) 43 Assessment & Plan Assessment & Plan (1) Preoperative clearance: Code(s): Z01.818 - Encounter for other preprocedural examination Category: Medical Plan: Regarding preop clearance, the patient is NOT at acceptable risk for proposed surgery until she gets her blood pressure under control. Reviewed with the patient that no surgery is completely free of risk and that this examination is to assist the surgeon in reviewing informed consent. Reviewed labs and recent ekg. Ekg sinus don with PACs aberrant conduction, nonspecific ST and T waves abnormality noted. BP was 180/88 on her follow up visit. (2) HTN (hypertension), benign: Code(s): I10 - Essential (primary) hypertension Category: Medical Plan: Blood pressure elevated in office. Reports that she is taking all of her medications at night. Explained to the patient that she taking her blood pressure medications at night, which going to cause them to peak while she is sleeping. As result, she is at risk for elevated blood pressure during the daytime when she is more active, and is in more need of this extra protection. The patient has her routine follow up evaluation the next morning in the office with RANDALL Pozo. Her blood pressure was noted to be even higher than the blood pressure during our visit. The patient is on multiple blood pressure medications: Clonidine 0.1 mg t.i.d., hydrochlorothiazide 25 mg daily, lisinopril 40 mg daily, metoprolol succinate ER 150 mg daily. It is unclear if the patient is actually taking all these medications. The patient daughter reports that she puts the medications out for the patient to take, but is not around in the mornings to monitor if she is taking them or not. Shared decision making after consulting with Dr. Sanchez, the patient PCP, to refer the patient to Nephrology. (3) High cholesterol: Code(s): E78.00 - Pure hypercholesterolemia, unspecified Category: Medical Plan: Total cholesterol 144, triglycerides 76, LDL 62 and HDL 67-controlled Reinforced low-cholesterol diet Continue atorvastatin 10 mg daily (4) CKD (chronic kidney disease): Code(s): N18.9 - Chronic kidney disease, unspecified Category: Medical Qualifiers: Chronic kidney disease stage: stage 3 (moderate) Chronic kidney disease stage 3 subtype: stage 3a (GFR 45-59) Qualified Code(s): N18.31 - Chronic kidney disease, stage 3a Plan: Stable on recent labs GFR 42 slightly decreased from previous, creatinine 1.27, and BUN 23 signifying that the patient could drink more fluids, which was encouraged Refrain from NSAIDs (5) Asthma: Comment: Code(s): J45.909 - Unspecified asthma, uncomplicated Category: Medical Qualifiers: Asthma severity: mild Asthma persistence: intermittent Asthma complication type: uncomplicated Qualified Code(s): J45.20 - Mild intermittent asthma, uncomplicated Plan: Denies SOB, expiratory wheezes heard throughout lung field. There was no signs of respiratory distress. The patient continues to smoke but has cut down significantly to 3 cigarettes a day Continue albuterol sulfate via neb q.4-6 H p.r.n., albuterol sulfate 90 mcg/actuation 2 inhalation Q 4 p.r.n., Arnuity Ellipta 100 mcg/actuation 1 inh daily (6) Tobacco abuse: Code(s): Z72.0 - Tobacco use Category: Medical Plan: Encouraged cessation Orders: Orders Comprehensive [place]. Panel Fast 11/14/24 E11.65 - Type 2 diabetes mellitus with hyperglycemia, E78.00 - Pure hypercholesterolemia, unspecified, I10 - Essential (primary) hypertension, I73.9 - Peripheral vascular disease, unspecified, Z01.818 - Encounter for other preprocedural examination TSH reflex Free T4 11/14/24 E11.65 - Type 2 diabetes mellitus with hypergly cemia, E78.00 - Pure hypercholesterolemia, unspecified, I10 - Essential (primary) hypertension, I73.9 - Peripheral vascular disease, unspecified, Z01.818 - Encounter for other preprocedural examination UA CC w/rflx Micro + Cult 11/14/24 E11.65 - Type 2 diabetes mellitus with hyperglycemia, E78.00 - Pure hypercholesterolemia, unspecified, I10 - Essential (primary) hypertension, I73.9 - Peripheral vascular disease, unspecified, Z01.818 - Encounter for other preprocedural examination ECG 12 lead EKG 11/14/24 Z01.818 - Encounter for other preprocedural examination Complete Blood Count Auto Diff 11/14/24 E11.65 - Type 2 diabetes mellitus with hyperglycemia, E78.00 - Pure hypercholesterolemia, unspecified, I10 - Essential (primary) hypertension, I73.9 - Peripheral vascular disease, unspecified, Z01.818 - Encounter for other preprocedural examination Lipid Panel 11/14/24 E11.65 - Type 2 diabetes mellitus with hyperglycemia, E78.00 - Pure hypercholesterolemia, unspecified, I10 - Essential (primary) hypertension, I73.9 - Peripheral vascular disease, unspecified, Z01.818 - Encounter for other preprocedural examination Vitamin D 25-OH Total 11/14/24 E11.65 - Type 2 diabetes mellitus with hyperglycemia, E78.00 - Pure hypercholesterolemia, unspecified, I10 - Essential (primary) hypertension, I73.9 - Peripheral vascular disease, unspecified, Z01.818 - Encounter for other preprocedural examination Hemoglobin A1c 11/14/24 E11.65 - Type 2 diabetes mellitus with hyperglycemia, E78.00 - Pure hypercholesterolemia, unspecified, I10 - Essential (primary) hypertension, I73.9 - Peripheral vascular disease, unspecified, Z01.818 - Encou nter for other preprocedural examination
[2024-11-14 08:45] VITALS: BP 136/84; PULSE 52; TEMP 36.9; O2SAT 95; BMI 37.2
[2024-11-14 09:49] VITALS: BP 146/88
== END 2024-11-14 10:05 | disposition home or self-care (01) ==
LOC: HO.HMCH 08:16
PROVIDERS: PCP Internal Medicine
DX: Z01.818 Encounter for other preprocedural examination (principal); I10 Essential (primary) hypertension; E78.00 Pure hypercholesterolemia, unspecified; N18.31 Chronic kidney disease, stage 3a; J45.20 Mild intermittent asthma, uncomplicated; Z72.0 Tobacco use

== ENCOUNTER → 2024-11-14 08:15 | Outpatient (REF) | payer MEDICARE, MEDICAID, SELFPAY ==
--- NOTE | 2024-11-14 10:31 | ECG_ITS ---
Test Reason : preop Blood Pressure : */* mmHG Vent. Rate : 53 BPM Atrial Rate : 53 BPM P-R Int : 154 ms QRS Dur : 80 ms QT Int : 452 ms P-R-T Axes : 75 27 23 degrees QTcB Int : 424 ms Sinus bradycardia with Premature atrial complexes with Aberrant conduction Nonspecific ST and T wave abnormality Borderline ECG No previous ECGs available Referred By: Jacinto Jefferson Electronically Signed By: CAMRON DALE
[2024-11-14 10:41] LABS: MANUAL DIFF FLAG NO
[2024-11-14 10:44] LABS: Basophils Absolute Auto 0.1 X10*3/uL (0.0-0.2); Eosinophils Absolute Auto 0.2 X10*3/uL (0.0-0.4); Eosinophils Percent Auto 2.7 % (0-4); Hematocrit 39.6 % (37.0-47.0); Hemoglobin 13.2 g/dl (12.0-16.0); Imm Gran Abs Auto 0.01 X10*3/uL (0.00-0.03); Imm Gran Pct Auto 0.2 % (0.0-0.4); Lymphocytes Absolute Auto 2.6 X10*3/uL (1.2-4.9); Lymphocytes Percent Auto 41.5 % (20-40); Mean Corpuscular HGB Conc 33.3 g/dl (31.0-35.0); Mean Corpuscular Hemoglobin 30.6 pg (27.0-33.0); Mean Corpuscular Volume 91.9 fL (80.0-98.0); Monocytes Absolute Auto 0.6 X10*3/uL (0.1-1.2); Monocytes Percent Auto 10.1 % (2-11); Neutrophils Absolute Auto 2.8 x10*3/uL (2.0-8.3); Neutrophils Percent Auto 44.5 % (45-73); Platelet Count 237 X10*3/uL (160-400); Red Blood Count 4.31 X10*6/uL (4.20-5.50); Red Cell Distribution Width 14.8 % (11.0-16.0); White Blood Count 6.3 X10*3/uL (4.8-10.8)
[2024-11-14 10:53] LABS: Estimated Average Glucose 148 mg/dL; Hemoglobin A1c % 6.8 % (<6.0); Total Hemoglobin (HGBA1C) 3474.5786 umol/L
[2024-11-14 11:16] LABS: Alanine Aminotransferase 13 U/L (0-31); Albumin Level 4.3 g/dL (3.5-5.0); Alkaline Phosphatase 77 U/L (39-117); Anion Gap 12 (12-20); Aspartate Amino Transferase 19 U/L (5-31); Bilirubin Total 0.9 mg/dL (0.0-1.0); Blood Urea Nitrogen 23 mg/dL (9-16); Calcium 9.6 mg/dL (8.4-10.2); Carbon Dioxide 28 mmol/L (22-29); Chloride 104 mmol/L (96-108); Cholesterol 144 mg/dL (<200); Estimated Glomerular Filt Rate 42; Glucose Fasting 131 mg/dL (60-99); HDL Cholesterol 67 mg/dL (>40); LDL Cholesterol Calculated 62 mg/dL (<100); Potassium 3.9 mmol/L (3.3-5.1); Sodium 140 mmol/L (135-145); Total Protein 7.4 g/dL (6.5-8.0); Triglycerides 76 mg/dL (<150)
[2024-11-14 11:32] LABS: TSH reflex Free T4 1.88 uIU/mL (0.32-4.0); Vitamin D 25-OH Total 18.7 ng/mL (>30)
[2024-11-14 11:54] LABS: Appearance Urine Clear; Color Urine Yellow; Glucose Urine UA Negative (Negative); Leukocyte Esterase Urine Negative (Negative); Nitrite Urine Negative (Negative); PH 5.5 (5.0-9.0); UMIC TRIGGER UACC YES; Urine Blood Trace (Negative); Urine Ketones Negative (Negative); Urine Protein Negative (Neg-Trace)
[2024-11-14 12:00] LABS: Bacteria Urine 1+ (None Seen); Hyaline Casts Urine 0-2 /LPF (0-2); RBC Urine 0-2 /HPF (0-2); WBC Urine 0-5 /HPF (0-5)
== END ==
LOC: HO.CARD 08:15
PROVIDERS: PCP Internal Medicine
DX: Z01.818 Encounter for other preprocedural examination (principal); I73.9 Peripheral vascular disease, unspecified; I10 Essential (primary) hypertension; E78.00 Pure hypercholesterolemia, unspecified; E11.65 Type 2 diabetes mellitus with hyperglycemia
CPT/HCPCS: 36415; 80053; 80061; 81001; 82306; 83036; 84443; 85025; 93005; 99212

== ENCOUNTER → 2024-11-14 10:31 | Outpatient (BNV) | payer MEDICARE, MEDICAID, SELFPAY | PROVIDERS: PCP Internal Medicine; Visit Provider Internal Medicine | DX: I48.91 Unspecified atrial fibrillation (principal); R00.1 Bradycardia, unspecified | CPT/HCPCS: 93010 ==

== ENCOUNTER 2024-11-15 08:20 | Outpatient (AMB) | payer MEDICARE, MEDICAID, SELFPAY ==
--- OUTSIDE RECORDS SUMMARY | 2024-11-15 08:28 | XMS_ITS | Clinical Summary ---
Author Organization [address] [place] [address] Address [address] [place] [address] Phone Care Team Providers Care Binding Nicker Name Role Phone Michelle Bob MD Primary Care Provider [phone] Allergies Active Allergy Reactions Criticality Noted Date [...] 9:45 AM EDT Office Visit Orthopedic Surgery [facility] [address] [phone] Harsha Burnham DPM Arthritis of left ankle (Primary Dx); Tendinitis of left ankle; Dermatophytosis of nail; Arthritis of right ankle; Diabetic mononeuropathy simplex (CMS/HCC V24, CMS/HCC V28); Type II diabetes mellitus with peripheral circulatory disorder (CMS/HCC V24, CMS/HCC V28); Pain in toe of left foot; Pain in toe of right foot 09/17/2024 10:30 AM EDT Office Visit Orthopedic Surgery [facility] [address] [facility] [address] [place] [phone] Burnham, Christopher M, DPM Tendinitis of right ankle (Primary Dx); Plantar fascial fibromatosis; Arthritis of right ankle; Follow-up exam; Dermatophytosis of nail; Type II diabetes mellitus with peripheral circulatory disorder ([facility] V24, [facility] V28); Diabetic mononeuropathy simplex ([facility] V24, [facility] V28) from Last 3 Months Social History [...] AM EDT Office Visit Orthopedic Surgery - [place] [address] [phone] Harsha Burnham, DPM [address] [address] 01/01/2025 7:30 AM EDT [facility]ointment [facility] [address] [phone] Health Maintenance Due Date Last Done Comments [...] of right ankle Arthritis of right ankle [facility] SCREENING DIGITAL Routine 01/01/2024 9:44 AM EDT Encounter for screening mammogram for malignant neoplasm of breast [facility] DEXA AXIAL SKELETON Routine 11/10/2022 [...] IN CLINIC/BEDSIDE ORDERAB LES Final Result * [facility] SCREENING DIGITAL (01/01/2024 9:44 AM EDT) Anatomical Region Laterality Modality Mammography 01/01/2024 6:45 AM EDT Narrative 01/01/2024 9:44 AM EDT [facility] Diagnostic Imaging Department [address] [place] [address] Patient: BHAVANA SHAW /Age/Sex: 1955 - 68 - F Unit#: [id number] Location/Status: [facility] CLI Mnemonic/Ordering Site: [facility] Ordering Physician: MICHELLE BOB MD [facility] Screening Digital - 01/01/24721 Report Status:Signed EXAM: [facility] Screening Digital EXAM DATE AND TIME: 01/01/2024 7:23 AM HISTORY: Screening. Right breast biopsy in 2005, pathology benign. COMPARISON: 12/26/22, 12/25/21, 12/17/20 TECHNIQUE: Bilateral digital breast tomosynthesis was performed in the CC and MLO projections. Computer aided detection with [employer] 3D 3.1 was employed. TISSUE DENSITY: b. [...] Procedure Note Amelie Bolton MD - 03/06/2024 [facility] Diagnostic Imaging Department [address] [place] [address] Patient: BHAVANA SHAW /Age/Sex: 1955 - 68 - F Unit#: [id number] Location/Status: [facility] CLI Mnemonic/Ordering Site: [facility] Ordering Physician: MICHELLE BOB MD [facility] Screening Digital - 01/01/24 - 0722 Report Status:Signed EXAM: [facility] Screening Digital EXAM DATE AND TIME: 01/01/2024 7:23 AM HISTORY: Screening. Right breast biopsy in 2005, pathology benign. COMPARISON: 12/26/22, 12/25/21, 12/17/20 TECHNIQUE: Bilateral digital breast tomosynthesis was performed in the CCand MLO projections. Computer aided detection with [employer] 3D 3.1was employed. TISSUE DENSITY: b. There [...] MD IMG BI PROCEDURES Final Result * [facility] DEXA AXIAL SKELETON (11/10/2022 7:43 AM EDT) Anatomical Region Laterality Modality Mammography 11/09/2022 12:3 3 PM EDT Narrative 11/10/2022 7:43 AM EDT [facility] Diagnostic Imaging Department [address] [place] [address] Patient: BHAVANA SHAW /Age/Sex: 1955 - 67 - F Unit#: [id number] Location/Status: [facility]/REG CLI [facility] Physician: MICHELLE BOB MD [facility] Dexa [...] probability of hip fracture of 2.4%. Code 89401 Dictating Physician: LEATHA TRIPP MD Electronically Signed by: LEATHA TRIPP MD Dic Date/Time: 11/10/22 0741 Sign date/Time: 11/10/22 0743 Procedure Note Leatha Tripp MD - 06/27/2023 [facility] Diagnostic Imaging Department [address] [place] [address] Patient: MIL SHAWGUILLERMINA Jung/Age/Sex: 1955 - 67 - F Unit#: [id number] Location/Status: [facility] CLI Mnemonic/Ordering Site: [facility] Ordering Physician: MICHELLE BOB MD [facility] Dexa Axial Skeleton - 11/09/22 - 2170 Report Status:Signed HISTORY: The patient is a [...] density of the femurs bilaterally is 0.833 gm/ye6mtght is 83% of that of young normals [...] probability of hip fracture of 2.4%. Code 43940 Dictating Physician: LEATHA TRIPP MD Electronically Signed by: LEATHA TRIPP MD Dic Date/Time: 11/10/22 0741 Sign date/Time: 11/10/22 0743 Michelle Bob MD IMG BI PROCEDURES Final Result from Last 3 Months or Most Recently Relevant to Health Maintenance Insurance MEDICAID - [place] MEDICARE Care Teams Binding Nicker Relationship Specialty Start Date End Date Michelle Bob MD [address] [place] [address] [address] [facility] [place] [address] PCP - General Internal Medicine 06/13/24
--- NOTE | 2024-11-15 08:31 | MHC.PC.OV ---
Vital Signs 11/15/24 08:33 11/15/24 13:24 Height 4 ft 11 in Weight 182 lb 4 oz BMI 36.8 BP 120/66 180/88 H Blood Pressure Location Lt brachial Lt brachial Position Sitting Sitting Pulse 56 Pulse Source Pulse Oximeter Temp 97.1 F Temp Source Temporal Artery Scan Pulse Oximetry (%) 96 Oxygen Delivery Method Room Air Intake Visit Reasons: f/u DM and HTN Intake Note: Patient is here to follow up on DM, HTN. Seismology Technical Officer Required: Yes Seismology Technical Officer Language: Burr Picker Name: Radha (Daughter) Information Interpreted: non-clinical & clinical (pt decline mattress stripper service perfer daughter to translate) Comfort Station Supervisor: Present Accompanied by: Daughter Allergies ibuprofen (From Motrin) Allergy (Unknown, Verified 11/15/24 08:32) GI UPSET felodipine Adverse Reaction (Intermediate, Verified 11/15/24 08:32) leg swelling Medication List - Last Reconciled 11/15/24 by Nohelia Glez PA-C albuterol sulfate 2.5 mg (3 mL) inhalation Q4-6H PRN 90 days albuterol sulfate 90 mcg/actuation 2 inhalations PO Q4H PRN alendronate 70 mg PO QWEEK allopurinol 100 mg PO DAILY atorvastatin 10 mg PO DAILY blood pressure monitor (Blood Pressure Kit) As directed cane As directed cholecalciferol (vitamin D3) 50 mcg PO DAILY 90 days clonidine HCl 0.1 mg PO TID 90 days lili.stocking,knee,reg,xlrg As directed 20-30 mm HG famotidine 40 mg PO BID fluticasone furoate 100 mcg/actuation (Arnuity Ellipta) 1 inh inhalation DAILY fluticasone propionate 50 mcg/actuation (Flonase Allergy Relief) 1 spray intranasal DAILY hydrochlorothiazide 25 mg PO DAILY lisinopril 40 mg PO DAILY metoprolol succinate ER 150 mg (1.5 x 100 mg) PO DAILY 90 days pyridoxine (vitamin B6) 100 mg PO DAILY sennosides (senna) 17.2 mg (2 x 8.6 mg) PO BEDTIME 90 days Shower Chair As directed Tobacco use date assessed: 11/14/24 Fall risk assessment: No Falls in past year Last assessed Fall Risk: 11/15/24 Dental Screening Dental Screen Date: 11/14/24 Did you have a dental visit in the last 12 months?: No Did you have a dental problem in the last 6 months where you did not have access to dental care?: No Was dental information given to patient?: No HPI f/u DM and HTN HPI Details 69-year-old female with past medical history of diabetes mellitus, asthma, GERD, tobacco abuse, hypertension, hypercholesterolemia, peripheral vascular disease and CKD last seen 10/2024 coming in for follow up.? Presenting with hypertension management and laboratory review. The patient's blood pressure was noted to be elevated at 146/88 mmHg during a recent pre-operative visit, and further elevated to 180/88 mmHg during today's visit. The patient has been taking her blood pressure medications as prescribed, with adjustments made to the timing of doses to improve adherence. The patient's HbA1c is stable at 6.8%, indicating good control of her diabetes. [facility] Medical History Irritable bowel syndrome with both constipation and diarrhea Renal cyst Asthma exacerbation Annual physical exam Renal calculi Abscess of nipple, left On beta saniya at home History of anemia IBS (irritable bowel syndrome) GERD (gastroesophageal reflux disease) History of memory loss Elevated cholesterol HTN (hypertension) Asthma Colon cancer screening Seborrheic keratosis Knee pain, right Gastric ulcer Type 2 diabetes mellitus with hyperglycemia Tobacco abuse Obesity (BMI 30-39.9) Otitis externa Osteopenia Illiterate Osteoarthritis Surgical History History of arthroscopy of left knee Hx of section History of hysterectomy H/O colonoscopy with polypectomy History of esophagogastroduodenoscopy (EGD) H/O cystoscopy H/O oophorectomy History of total knee replacement Family History Father Prostate cancer Mother Brain tumor Social History Household Members: None Housing: Apartment Alcohol intake: current Comment: once q 3 month 1 drinks Patient Tobacco Use Status: Current everyday Tobacco user Tobacco use type: Cigarette Cigarette Packs Per Day: 0.5 Cigarettes Per Day: 4 Years Smoked: 2-3 cigarette a day e-Cigarette/Vaping Use: Never Used Second Hand Smoke Exposure: Yes service: No Current occupational status: disabled Cognitive needs: Yes Hearing needs: No Vision needs: No Questionnaire PHQ-9 Over the last 2 weeks, how often have you been bothered by any of the following problems? 1. Little interest or pleasure in doing things: not at all 2. Feeling down, depressed, or hopeless: not at all 3. Trouble falling or staying asleep, or sleeping too much: not at all 4. Feeling tired or having little energy: not at all 5. Poor appetite or overeating: not at all 6. Feeling bad about yourself - or that you are a failure or have let yourself or your family down: not at all 7. Trouble concentrating on things, such as reading the newspaper or watching television: not at all 8. Moving or speaking so slowly that other people could have noticed. Or the opposite - being so fidgety or restless that you have been moving around a lot more than usual: not at all 9. Thoughts that you would be better off or of hurting yourself in some way: not at all Total score: 0 Depression Screening Interpretation: Negative Depression Screening Done: Yes Source: Developed by Drs. Konstantin Langston, Saskia Sales, Luciano Leach and colleagues, with an educational liya from [employer]. Thrive Questionnaire Date Thrive assessed: 11/14/24 I am a: Patient What is your living situation today?: I have a steady place to live Within the past 12 months, did the food you bought not last and you didn't have the money to get more?: I choose not to answer this question Within the past 12 months, did you worry whether your food would run out before you got money to buy more?: I choose not to answer this question Do you have trouble paying for medicines?: No Do you have trouble getting transportation to medical appointments?: No Do you have trouble paying your heating and electricity bill?: No Do you have trouble taking care of your child, family member or friend?: No Do you have trouble with day-to-day activities such as bathing, preparing meals, shopping, managing finances, etc.?: I choose not to answer this question Are you currently unemployed and looking for a job?: No Are you interested in more education?: No Please select the resources that you would like help with: None Currently or been in a relationship where the following occur: No concerns reported THRIVE Score: 0 AUDIT C Alcohol Use Questionnaire (AUDIT-C) 1. How often do you have a drink containing alcohol?: Never Total Score: 0 AKILAH-7 AMB Questionnaire AKILAH-7 Date AKILAH - 7 assessed: 11/14/24 Feeling nervous, anxious, or on edge: 0 = Not at all Not being able to stop or control worryin = Not at all Worrying too much about different things: 0 = Not at all Trouble relaxin = Not at all Being so restless that it is hard to sit still: 0 = Not at all Becoming easily annoyed or irritable: 0 = Not at all Feeling afraid as if something awful might happen: 0 = Not at all Total AKILAH-7 score (0-4 normal; 5-9 mild; 10-14 moderate; 15-21 severe): 0 Source: Developed by Drs. Konstantin Langston, Saskia Sales, Luciano Leach and colleagues, with an educational liya from [employer]. Review of Systems Const Denies body aches, Denies chills, Denies fever(s), Denies headache(s) and Denies poor appetite Eyes Reports no additional complaints ENT Denies dysphagia, Denies dizziness, Denies headache(s) and Denies odynophagia Card Denies chest pain, Denies syncope, Denies edema, Denies irregular heart rhythm, Denies lightheadedness and Denies dyspnea Resp Denies cough and Denies dyspnea GI Denies abdominal pain, Denies constipation, Denies dysphagia, Denies diarrhea, Denies nausea, Denies odynophagia and Denies vomiting Reports no additional complaints Musc Reports no additional complaints and Denies abnormal gait Skin/Breast Reports system reviewed and no additional complaints, except as documented Neuro Denies abnormal gait, Denies dizziness, Denies syncope and Denies headache(s) Psych Reports no additional complaints Physical exam (Primary Care) Vital Signs: Last Vital Signs Temp 97.1 F 11/15/24 08:33 Pulse 56 11/15/24 08:33 BP 120/66 11/15/24 08:33 Pulse Ox 96 11/15/24 08:33 Oxygen Delivery Method Room Air 11/15/24 08:33 BMI result Body Mass Index 36.8 Tobacco/Smoking Status: Tobacco use Status Tobacco use date assessed 11/14/24 11/15/24 08:38 Patient Tobacco Use Status Current everyday Tobacco 11/15/24 08:38 Tobacco use type Cigarette 11/15/24 08:38 e-Cigarette/Vaping Use Never Used 11/15/24 08:38 PHQ-9: PHQ-9 Score PHQ-9: Total score 0 11/15/24 08:59 Depression Screening Interpretation: Negative Thrive Assessment: Date of Thrive Assessment Date Thrive assessed 11/14/24 11/15/24 08:38 Currently or been in a relationship where the following occur: No concerns reported Const General: cooperative, healthy appearing, comfortable and no acute distress Orientation/consciousness: patient oriented x3 HENMT Head: Yes normocephalic Ears: hearing grossly normal bilaterally General nose exam: Normal external nose present Eyes General: appearance normal, both eyes and all related structures Conjunctivae: conjunctivae normal Neck Neck: Yes full ROM and Yes no lymphadenopathy Resp Effort & Inspection: normal respiratory effort Auscultation: clear to auscultation bilaterally, no crackles, no rales, no rhonchi and no wheezes Cardio Rate: regular rate Rhythm: regular rhythm Skin General skin exam: no rashes or lesions noted Neuro General: patient oriented x3 Gait exam (Neuro): Normal gait present Extrem General: Yes normal to inspection, Yes full ROM and No edema Psych Affect: normal affect Attitude: cooperative Insight: Good insight present (Psych) Judgement: Good judgement present (Psych) Coding Level of Care Code Est Pt Level 3 (51341) Diagnoses HTN (hypertension), benign I10 High cholesterol E78.00 Type 2 diabetes mellitus with hyperglycemia, without long-term current use of insulin E11.65 Diabetes mellitus intermodal customer service insulin use: without intermodal customer service use Obesity (BMI 30-39.9) E66.9 Resistant hypertension I1A.0 Assessment & Plan Assessment & Plan (1) HTN (hypertension), benign: Code(s): I10 - Essential (primary) hypertension Category: Medical Plan: Patient recently switched her blood pressure medication to take him in the morning. This is the 1st day that she has taken her blood pressure medications in the morning and is not on a to a full 24 hour dose of the blood pressure medications. Her blood pressure is not well controlled in the office today 180/88. Plan to continue with current medication regimen and follow up in 1 week with the nurse navigator. Advised patient to take blood pressure at home and bring monitor to next visit. Avoid salt intake and encourage healthy diet and regular exercise. (2) High cholesterol: Code(s): E78.00 - Pure hypercholesterolemia, unspecified Category: Medical Plan: Avoid foods that are high in cholesterol such as red meat, fried foods, eggs and baked goods. Triglyceride goal of less than 150 and LDL goal of less than 100. (3) Type 2 diabetes mellitus with hyperglycemia: Comment: Dr. Mcadams Code(s): E11.65 - Type 2 diabetes mellitus with hyperglycemia Category: Medical Qualifiers: Diabetes mellitus intermodal customer service insulin use: without intermodal customer service use Qualified Code(s): E11.65 - Type 2 diabetes mellitus with hyperglycemia Plan: Decrease the amount of carbohydrates such as pasta, bread, rice, and potatoes and limit the amount of sweets. Although fruits are generally healthy they should be eaten in moderation as they are still high in sugar. Hemoglobin A1c goal of less than 7%. Last A1c within goal (4) Obesity (BMI 30-39.9): Comment: Diet and exercise Code(s): E66.9 - Obesity, unspecified Category: Medical Plan: Healthy diet and regular exercise is encouraged. (5) Resistant hypertension: Code(s): I1A.0 - Resistant hypertension Category: Medical Plan: Patient found to have resistant hypertension on hydrochlorothiazide 25 mg, metoprolol 150 mg, lisinopril 40 mg and clonidine 0.1 mg t.i.d.. Referral was placed to Nephrology. Plan The patient's hypertension requires further evaluation due to resistant hypertension, and a referral to a financial analyst intern has been made for specialized assessment. Blood pressure monitoring at home is advised, and the patient is encouraged to bring her blood pressure cuff to the next appointment for calibration. The patient's diabetes management remains stable, with no changes to medication required at this time, but dietary modifications are recommended to maintain HbA1c levels below 7%. Vitamin D deficiency should be addressed with potential supplementation, and the patient is advised to increase fluid intake to prevent dehydration, especially during hot weather. This note was constructed using voice recognition software. While every effort has been made to ensure accuracy and adult care provider, still areas may have been included sometimes these areas may affect the content or meeting of the given symptoms. Total time spent caring for the patient today was 20 minutes. This includes time spent before the visit reviewing the chart, time spent during the visit, and time spent after the visit and documentation. Patient was informed and verbally consented to the use of an ambient scribe for clinic note documentation during this visit. Orders: Referrals Nephrology Referral I1A.0 - Resistant hypertension Medications: New [nebulizer] As directed 1 ea 0RF J45.20 - Mild intermittent asthma, uncomplicated
[2024-11-15 08:33] VITALS: BP 120/66; PULSE 56; TEMP 36.2; O2SAT 96; BMI 36.8
[2024-11-15 13:24] VITALS: BP 180/88
== END 2024-11-15 09:38 | disposition home or self-care (01) ==
LOC: HO.HMCH 08:21
PROVIDERS: PCP Internal Medicine
DX: E11.65 Type 2 diabetes mellitus with hyperglycemia (principal); I10 Essential (primary) hypertension; E66.9 Obesity, unspecified; Z68.36 Body mass index [BMI] 36.0-36.9, adult; E78.00 Pure hypercholesterolemia, unspecified; I1A.0 Resistant hypertension

== ENCOUNTER → 2024-11-15 08:20 | Outpatient (BNVA) | payer MEDICARE, MEDICAID, SELFPAY | PROVIDERS: PCP Internal Medicine | DX: I1A.0 Resistant hypertension (principal); E11.65 Type 2 diabetes mellitus with hyperglycemia; E66.9 Obesity, unspecified; Z68.36 Body mass index [BMI] 36.0-36.9, adult; Z71.3 Dietary counseling and surveillance | CPT/HCPCS: 99212 ==

== ENCOUNTER 2024-11-25 06:34 | Day surgery (SDC) | payer MEDICARE, MEDICAID, SELFPAY ==
--- OUTSIDE RECORDS SUMMARY | 2024-10-23 09:35 | XMS_ITS | Clinical Summary ---
Author Organization [address] [place] [address] Address [address] [place] [address] Phone Care Team Providers Care Pipe Puller Name Role Phone Michelle Bob MD Primary Care Provider [phone] Allergies Active Allergy Reactions Criticality Noted Date Comments Felodipine Swelling 08/13/2024 Ibuprofen GI intolerance 08/13/2024 Medications alendronate (FOSAMAX) 70 mg tablet TOME DANNY TABLETA POR V A ORAL EVERY WEEK 5 Active Ventolin HFA 90 mcg/actuation inhaler 2 INHALATIONS ORALLY EVERY 4 HOURS NEEDED FOR BRONCHOSPASM 4 Active allopurinoL (ZYLOPRIM) 100 mg tablet TOME 1 TABLETA POR V A ORAL TODOS LOS D 4 Active atorvastatin (LIPITOR) 10 mg tablet TOME 1 TABLETA POR V A ORAL TODOS LOS D 5 Active celecoxib (CeleBREX) 200 mg capsule TOME 1 C PSULA POR V A ORAL TODOS LOS D CON ALIMENTO 4 Active cloNIDine (CATAPRES) 0.1 mg tablet take 1 tablet orally 3 times a day for 90 days 5 Active docusate sodium (COLACE) 100 mg capsule Take 1 capsule (100 mg total) by mouth 1 (one) time each day. with food 4 Active famotidine (PEPCID) 40 mg tablet TOME DANNY TABLETA POR V A ORAL DOS VECES AL D A 5 Active fluticasone propionate (FLONASE) 50 mcg/actuation nasal spray SPRAY 1 SPRAY INTRANASALLY DAILY ADMINISTER INTO EACH NOSTRIL 5 Active hydroCHLOROthia zide (HYDRODIURIL) 25 mg tablet Take 1 tablet (25 mg total) by mouth 1 (one) time each day. 5 Active lisinopril (PRINIVIL,ZESTR IL) 40 mg tablet TOME DANNY TABLETA POR V A ORAL TODOS LOS D 5 Active metoprolol succinate (TOPROL-XL) 100 mg 24 hr tablet TAKE 1.5 TABLET BY MOUTH DAILY FOR 90 DAYS 5 Active predniSONE (DELTASONE) 10 mg tablet START 05/07 - TAKE 4 TABS X 3 DAYS, 2 TABS X 3 DAYS, THEN 1 TAB DAILY X 4 DAYS AND STOP. WITH FOOD 4 Active senna 8.6 mg tablet TOME DOS TABLETAS POR V A ORAL TODOS LOS D AL ACOSTARSE CUANDO SEA NECESARIO FOR CONSTIPATION 5 Active Encounters Date Type Department Care Team Description 09/17/2024 10:30 AM EDT Office Visit Orthopedic Surgery [place] [address] [phone] Harsha Burnham, DPM Tendinitis of right ankle (Primary Dx); Plantar fascial fibromatosis; Arthritis of right ankle; Follow-up exam; Dermatophytosis of nail; Type II diabetes mellitus with peripheral circulatory disorder ([facility] V24, [facility] V28); Diabetic mononeuropathy simplex ([facility] V24, [facility] V28) 08/13/2024 11:00 AM EDT Consult Orthopedic Surgery [address] [phone] Harsha Burnham DPM Dermatophytosis of nail (Primary Dx); Pain in toe of right foot; Pain in toe of left foot; Plantar fascial fibromatosis; Equinus contracture of ankle; Diabetic mononeuropathy simplex (CMS/HCC V24, CMS/[facility] V28); Type II diabetes mellitus with peripheral circulatory disorder (CMS/HCC V24, CMS/HCC V28) from Last 3 Months Social History Tobacco Use Types Packs/Day Years Used Date Smoking Tobacco: Never Assessed Comments Unknown Sex and Gender Information Value Date Recorded Sex Assigned at Not on file Legal Sex Female 5:46 AM EST Gender Identity Not on file Sexual Orientation Not on file Last Filed Vital Signs Vital Sign Reading Time Taken Comments Blood Pressure - - Pulse - - Temperature - - Respiratory Rate - - Oxygen Saturation - - Inhaled Oxygen Concentration - - Weight 83.9 kg (185 lb) 08/13/2024 11:23 AM EDT Height 149.9 cm (4' 11 ) 08/13/2024 11:23 AM EDT Body Mass Index 37.37 08/13/2024 11:23 AM EDT Plan of Treatment Upcoming Encounters Date Type Department Care Team (Late st Contact Info) Description 10/24/2024 9:45 AM EDT Office Visit Orthopedic Surgery - [place] [address] [phone] Harsha Burnham, DPYared [address] [address] 01/01/2025 7:30 AM EDT [facility]ointment [facility] [address] [place] [phone] Health Maintenance Due Date Last Done Comments Diabetes: Annual GFR (Glomerular Filtration Rate) 1955 Diabetes: Annual Foot Exam 08/11/1965 Diabetes: Annual Retina Eye Exam 08/11/1965 Zoster Vaccines (1 of 2) 08/11/2005 RSV Immunization Adult Patients (1 - Risk 60-74 years 1-dose series) 2015 Cholesterol Screening (Lipid Panel) 04/24/2022 Colorectal Cancer Screening: Colonoscopy 04/24/2022 Depression Screening 04/24/2022 Falls Risk Assessment 04/24/2022 Hepatitis C Screening 04/24/2022 Medicare Annual Wellness Visit 04/24/2022 Social Influencers of Health Screening 04/24/2022 COVID-19 Vaccine ( season) 2024 07/25/2022, 05/31/2021, 10/08/2020, Additional history exists Diabetes: Annual Urine Albumin-Creatinine Ratio (uACR) 08/13/2024 Diabetes: Blood Sugar Control Test (HGBA1C) 08/13/2024 Breast Cancer Screening 12/31/2025 01/01/20 24, 12/26/2022, 12/26/2021, Additional history exists DTaP,Tdap,and Td Vaccines (2 - Td or Tdap) 09/28/2027 09/27/2017 Osteoporosis Screening (Bone Density Screening) 11/10/2032 11/10/2022, 03/08/2019 Pneumococcal Vaccine: 50+ Years Completed 10/06/2022, 08/29/2016 Influenza Vaccine Completed 05/04/2024, , 03/08/2022, Additional history exists HIB Vaccines Aged Out No longer eligi [...] age to complete this topic Meningococcal B Vaccine Aged Out No l onger eligible based on patient's age to complete this topic RSV Immunization Patients Under 20 months Aged Out No longer eligible based on patient's age to complete this topic Varicella Vaccines Aged Out No longer eligible based on patient's age to complete this topic Procedures Procedure Name Priority Date/Time Associated Diagnosis Comments XR FOOT 3+ VIEWS BILAT Routine 09/17/2024 10:50 AM EDT Follow-up exam INJECTION TENDON OR LIGAMENT Routine 09/17/2024 10:30 AM EDT Tendinitis of right ankle Arthritis of right ankle INJECTION TENDON OR LIGAMENT Routine 08/13/2024 11:00 AM EDT Plantar fascial fibromatosis [facility] SCREENING DIGITAL Routine 01/01/2024 9:44 AM EDT Encounter for screening mammogram for malignant neoplasm of breast [facility] DEXA AXIAL SKELETON Routine 11/10/2022 7:43 AM EDT Other specified disorders of bone density and structure, multiple sites from Last 3 Months or Most Recently Relevant to Health Maintenance Results * XR Foot 3+ Views bilat (09/17/2024 10:50 AM EDT) Anatomical Region Laterality Modality Lower Extremities, Foot Bilateral Computed Radiography Narrative 09/17/2024 12:15 PM EDT Right foot ??3 views No fracture. No radiopaque foreign joint spaces ?? Arthritis ?? moderate severe midtarsal joint mild of subtalar joint and forefoot Foot position Pes planus with Talus navicular uncovering decreased calcaneal inclination anterior displaced symes line talus navicular joint to calcaneal cuboid joint ?? Left foot 3 views No fracture. No radiopaque foreign joint spaces ?? Arthritis ?? moderate severe midtarsal joint mild of subtalar joint and forefoot Foot position Pes planus with Talus navicular uncovering decreased calcaneal inclination anterior displaced symes line talus navicular joint to calcaneal cuboid joint ?? us Harsha Burnham DPM IMG XR PROCEDURES Final R esult * Injection tendon or ligament (09/17/2024 10:30 AM EDT) Narrative Harsha Burnham DPM - 09/17/2024 10:30 AM EDT Harsha Burnham DPM ? 09/17/2024 12:16 PM Injection tendon or ligament Indications: pain Details: 25 G needle Medications: 0.5 mL lidocaine (PF) 1 %; 20 mg triamcinolone acetonide 40 mg/mL Informed Consent: ??Site: ??Foot ligament tendon us Harsha Burnham DPM IN CLINIC/BEDSIDE ORDERAB LES Final Result * Injection tendon or ligament (08/13/2024 11:00 AM EDT) Narrative Harsha Burnham DPM - 08/13/2024 11:00 AM EDT Harsha Burnham DPM ? 08/13/2024 12:03 PM Injection tendon or ligament Indications: pain Details: 25 G needle Medications: 0.5 mL lidocaine (PF) 1 %; 20 mg triamcinolone acetonide 40 mg/mL Informed Consent: ??Site: ??Foot ligament tendon us Harsha Burnham DPM IN CLINIC/BEDSIDE ORDERAB LES Final Result * [facility] SCREENING DIGITAL (01/01/2024 9:44 AM EDT) Anatomical Region Laterality Modality Mammography 01/01/2024 6:45 AM EDT Narrative 01/01/2024 9:44 AM EDT [facility] Diagnostic Imaging Department [address] [place], [place] [id number] Patient: ??BHAVANA SHAW ?/Age/Sex: 1955 - 68 - F Unit#: ??[id number] ? Location/Status: ??SPDIMAM/REG CLI ? Mnemonic/Ordering Site: ??DIGSC/SPMAM Ordering Physician: ??MICHELLE BOB MD [facility] Screening Digital - 01/01/24721 Report Status:Signed EXAM: [facility] Screening Digital EXAM DATE AND TIME: 01/01/2024 7:23 AM HISTORY: ??Screening. Right breast biopsy in 2005, pathology benign. COMPARISON: ??12/26/22, 12/25/21, 12/17/20 TECHNIQUE: Bilateral digital breast tomosynthesis was performed in the CC and MLO projections. Computer aided detection with iCAD Guidekick 3D 3.1 was employed. TISSUE DENSITY: b. [...] BOLTON MD Dic Date/Time: ??01/01/24942 Sign date/Time: ??01/01/24943 Procedure Note Amelie Bolton MD - 03/06/2024 [facility] Diagnostic Imaging Department [address] [place] [address] Patient: BHAVANA SHAW /Age/Sex: 1955 - 68 - F Unit#: [id number] Location/Status: [facility] Mnemonic/Ordering Site: [facility] Ordering Physician: MICHELLE BOB MD [facility] Screening Digital - 01/01/24 - 22 Report Status:Signed EXAM: [facility] Screening Digital EXAM DATE AND TIME: 01/01/2024 7:23 AM HISTORY: Screening. Right breast biopsy in 2005, pathology benign. COMPARISON: 12/26/22, 12/25/21, 12/17/20 TECHNIQUE: Bilateral digital breast tomosynthesis was performed in the CCand MLO projections. Computer aided detection with CatmojiD Guidekick 3D 3.1was employed. TISSUE DENSITY: b. There [...] MD IMG BI PROCEDURES Final Result * [facility] DEXA AXIAL SKELETON (11/10/2022 7:43 AM EDT) Anatomical Region Laterality Modality Mammography 11/09/2022 12:3 3 PM EDT Narrative 11/10/2022 7:43 AM EDT [facility] Diagnostic Imaging Department [address] [place] [id number] Patient: ??BHAVANA SHAW ?/Age/Sex: 1955 - 67 - F Unit#: ??[id number] ? Location/Status: ??SPDIMAM/REG CLI ? Mnemonic/Ordering Site: ??MAMDEXAAX/SPMAM Ordering Physician: ??MICHELLE BOB MD [facility] Dexa Axial Skeleton - 11/09/220 Report Status:Signed HISTORY: ??The patient is a [...] probability of hip fracture of 2.4%. Code 00288 Dictating Physician: ??LEATHA TRIPP MD Electronically Signed by: ??LEATHA TRIPP MD Dic Date/Time: ??11/10/22 0741 Sign date/Time: ??11/10/22 0743 Procedure Note Leatha Tripp MD - 06/27/2023 [facility] Diagnostic Imaging Department [address] [place] [address] Patient: BHAVANA SHAW /Age/Sex: 1955 67 - F Unit#: [id number] Location/Status: [facility] CLI Mnemonic/Ordering Site: [facility] Ordering Physician: MICHELLE BOB MD [facility] Dexa Axial Skeleton - 11/09/22 - 1330 Report Status:Signed HISTORY: The patient is a [...] density of the femurs bilaterally is 0.833 gm/[id number] is 83% of that of young normals [...] probability of hip fracture of 2.4%. Code 43783 Dictating Physician: LEATHA TRIPP MD Electronically Signed by: LEATHA TRIPP MD Dic Date/Time: 11/10/2241 Sign date/Time: 11/10/22742 Michelle Bob MD IMG BI PROCEDURES Final Result from Last 3 Months or Most Recently Relevant to Health Maintenance Insurance MEDICA[place] - [place] MEDICARE Care Teams Pipe Puller Relationship Specialty Start Date End Date Michelle Bob MD NPI: [id number] [place] [address] Dr [address] [facility] [place] [address] PCP - General Internal Medicine 06/13/24
--- NOTE | 2024-11-20 10:18 | HO.ANESPROP2 ---
Documented by User: Karlee Smith NP 11/20/24 10:19 HPI - Anesthesia Eval Consult details Narrative: 69yo F for Right Cataract Extraction IOL Insertion No previous cataract on record PMFSH Active Problems Active Problems: All Active Problems Resistant hypertension (Acute) Preoperative clearance (Acute) Microscopic hematuria (Acute) Foreign body of ear, left (Acute) Plantar fasciitis of right foot (Acute) Bilateral knee pain (Acute) Medicare annual wellness visit, subsequent (Acute) CKD (chronic kidney disease) (Acute) Constipation (Acute) Otitis externa (Acute) Bilateral lower extremity edema (Acute) Painful arc syndrome of left shoulder (Acute) Ankle pain, right (Acute) Memory changes (Acute) Shoulder pain, left (Acute) Osteoarthritis of left hip (Acute) Peripheral vascular disease (Acute) Renal cyst (Acute) Age-related osteoporosis without current pathological fracture (Acute) Bicipital tendinitis of right shoulder (Acute) Allergic rhinitis (Acute) Hematuria (Acute) Plantar warts (Acute) Low vitamin D level (Acute) Asthma (Acute) HTN (hypertension), benign (Acute) High cholesterol (Acute) GERD (gastroesophageal reflux disease) (Acute) Right groin pain (Acute) Hip pain, right (Acute) Annual physical exam (Acute) Illiterate (Acute) Type 2 diabetes mellitus with hyperglycemia (Acute) Tobacco abuse (Acute) Obesity (BMI 30-39.9) (Acute) Past Medical History Medical History (Updated 11/20/24 @ 16:21 by Linda Elizalde, JOYCE) Bilateral cataracts Irritable bowel syndrome with both constipation and diarrhea Renal cyst Asthma exacerbation Annual physical exam Renal calculi Abscess of nipple, left On beta saniya at home History of anemia IBS (irritable bowel syndrome) GERD (gastroesophageal reflux disease) History of memory loss Elevated cholesterol HTN (hypertension) Asthma Colon cancer screening Seborrheic keratosis Knee pain, right Gastric ulcer Type 2 diabetes mellitus with hyperglycemia Tobacco abuse Obesity (BMI 30-39.9) Otitis externa Osteopenia Illiterate Osteoarthritis Family History Family History Father Prostate cancer Mother Brain tumor Family history of problems with anesthesia: No Surgical History Surgical History History of arthroscopy of left knee Hx of section History of hysterectomy H/O colonoscopy with polypectomy History of esophagogastroduodenoscopy (EGD) H/O cystoscopy H/O oophorectomy History of total knee replacement History of Problems with Anesthesia: No Social History Social History Household Members: None Housing: Apartment Are you a primary disabilities caregiver to a significant other at home: No Do you presently have visiting nurse or other home services: No Alcohol intake: current Alcohol intake frequency: does not drink Comment: once q 3 month 1 drinks Patient Tobacco Use Status: Current everyday Tobacco user Tobacco use type: Cigarette Cigarette Packs Per Day: 0.5 Cigarettes Per Day: 10.0 Years Smoked: 2-3 cigarette a day e-Cigarette/Vaping Use: Never Used Second Hand Smoke Exposure: No Use of substances other than those prescribed or required for medical reasons: Yes Substance Use Frequency: Daily Have you been hit, kicked, punched, or otherwise hurt by someone within the past year? If so, by whom?: No Are you DNR?: No Advance Directives: No Advance Directives Information Provided: Yes Advance Directives on File: No Patient : No : No Poor oral hygiene: No service: No Current occupational status: disabled Cognitive needs: Yes Hearing needs: No Vision needs: No Meds Allergies Allergy/AdvReac Type Severity Reaction Status Date / Time ibuprofen (From Motrin) Allergy Unknown GI UPSET Verified 11/15/24 08:32 felodipine AdvReac Intermediate leg Verified 11/15/24 08:32 swelling Home Medications ?Medication ?Instructions ?Recorded ?Confirmed ?Last Taken ?Type pyridoxine (vitamin B6) 100 mg 100 mg PO DAILY 11/30/21 11/20/24 Unknown History tablet allopurinol 100 mg tablet 100 mg PO DAILY 05/14/24 11/20/24 Unknown History Assessment and Plan Assessment Anesthesia Assessment: Chart Reviewed Final Anesthetic Review Family History of Problems with Anesthesia: No History of Problems with Anesthesia: No Documented by User: Chitra Rice MD 11/25/24 09:59 [facility] Past Medical History Medical History (Updated 11/20/24 @ 16:21 by Linda Elizalde RN) Bilateral cataracts Irritable bowel syndrome with both constipation and diarrhea Renal cyst Asthma exacerbation Annual physical exam Renal calculi Abscess of nipple, left On beta saniya at home History of anemia IBS (irritable bowel syndrome) GERD (gastroesophageal reflux disease) History of memory loss Elevated cholesterol HTN (hypertension) Asthma Colon cancer screening Seborrheic keratosis Knee pain, right Gastric ulcer Type 2 diabetes mellitus with hyperglycemia Tobacco abuse Obesity (BMI 30-39.9) Otitis externa Osteopenia Illiterate Osteoarthritis Family History Family History Father Prostate cancer Mother Brain tumor Surgical History Surgical History History of arthroscopy of left knee Hx of section History of hysterectomy H/O colonoscopy with polypectomy History of esophagogastroduodenoscopy (EGD) H/O cystoscopy H/O oophorectomy History of total knee replacement Social History Social History Household Members: None Housing: Apartment Are you a primary disabilities caregiver to a significant other at home: No Do you presently have visiting nurse or other home services: No Alcohol intake: current Alcohol intake frequency: does not drink Comment: once q 3 month 1 drinks Patient Tobacco Use Status: Current everyday Tobacco user Tobacco use type: Cigarette Cigarette Packs Per Day: 0.5 Cigarettes Per Day: 10.0 Years Smoked: 2-3 cigarette a day e-Cigarette/Vaping Use: Never Used Second Hand Smoke Exposure: No Use of substances other than those prescribed or required for medical reasons: Yes Substance Use Frequency: Daily Have you been hit, kicked, punched, or otherwise hurt by someone within the past year? If so, by whom?: No Are you DNR?: No Advance Directives: No Advance Directives Information Provided: Yes Advance Directives on File: No Patient : No : No Poor oral hygiene: No service: No Current occupational status: disabled Cognitive needs: Yes Hearing needs: No Vision needs: No Meds Allergies Allergy/AdvReac Type Severity Reaction Status Date / Time ibuprofen (From Motrin) Allergy Unknown GI UPSET Verified 11/15/24 08:32 felodipine AdvReac Intermediate leg Verified 11/15/24 08:32 swelling Home Medications ?Medication ?Instructions ?Recorded ?Confirmed ?Last Taken ?Type pyridoxine (vitamin B6) 100 mg 100 mg PO DAILY 11/30/21 11/20/24 Unknown History tablet allopurinol 100 mg tablet 100 mg PO DAILY 05/14/24 11/20/24 Unknown History Exam Airway Mallampati Class: IV (smallmouth opening) TM Dist: >3cm Neck ROM: Full Heart: rrr Lungs: cts Assessment and Plan Assessment Anesthesia Assessment: Anesthesia Plan Discussed Final Anesthetic Review NPO: Yes ASA Class: III Final Preanesthetic Review: No Changes in Pt Med Stat, Meds/Allgs Chart Reviewed and Consent Obtained/Reviewed Patient Risk: Low Procedure Risk: Low Anesthetic Plan Anesthetic Plan: MAC: Disposition: Standard PACU
[2024-11-20 16:20] VITALS: BMI 36.8
[2024-11-25 09:21] VITALS: BP 171/87; PULSE 48; RESP 16; TEMP 36.1; O2SAT 98
[2024-11-25] MEDS: Tetracaine HCl/PF 0.5% Oph Sol 4 ML DROPS 1 DROP EYE-RIGHT (09:34)
[2024-11-25] MEDS: Lactated Ringers 500 ML 50 ML IV (09:44)
[2024-11-25] MEDS: Cyclopentolate 1 % Ophth Sol 2 ML DRPBTL 1 DROP EYE-RIGHT ×3 (09:44→09:50)
[2024-11-25] MEDS: Phenylephrine HCL 2.5% Oph SoL 2 ML BOTTLE 1 DROP EYE-RIGHT ×3 (09:45→09:50)
[2024-11-25] MEDS: Tropicamide 1 % Ophth Sol 3 ML BTL 1 DROP EYE-RIGHT ×3 (09:45→09:50)
[2024-11-25] MEDS: Ketorolac Tromethamine 0.5% Op 5 ML DROPS 1 DROP EYE-RIGHT ×3 (09:45→09:50)
--- NOTE | 2024-11-25 10:30 | MHC.SHP ---
Pre-Procedural Eval Section A - 24 Hr Update-Section A only Date of Service: 11/25/24 The patient is an INPATIENT: No Changes since office visit: No Cold of Flu in the past 2 weeks, No New Medical Problems, No Changes in Medication and No Patient answered all questions The patient has been examined within 24 hours of the surgical procedure. The History & Physical has been completed within 30 days and I have reviewed it.: Yes Section B - Complete if H&P > 30 days Chief Complaint: Age-related nuclear cataract, right eye Allergies: Allergies Allergy/AdvReac Type Severity Reaction Status Date / Time ibuprofen (From Motrin) Allergy Unknown GI UPSET Verified 11/15/24 08:32 felodipine AdvReac Intermediate leg Verified 11/15/24 08:32 swelling Plan Diagnosis/Plan: Unchanged I have reviewed the history and physical and performed a pertinent physical examination on my patient. No changes have occurred unless specified. Time Spent With Patient Time: Total time managing care of this patient today ____ minutes.
--- NOTE | 2024-11-25 10:30 | HO.PNOPHT ---
Ophthalmology Procedure Procedure Date of Service: 11/25/24 Ophthalmology Viscoelastic: Healon Duet Dual Pack Pro Ophthalmology Lenses: IOL Acrysof MP - [id number] (221.5) Procedure Notes: PREOPERATIVE DIAGNOSIS: Decreased visual acuity right eye secondary to cataract POSTOPERATIVE DIAGNOSIS: Same PROCEDURE: Right cataract extraction with intraocular lens insertion SURGEON: Cisco Estrada M.D. ANESTHESIA: Topical/MAC ESTIMATED BLOOD LOSS: None COMPLICATIONS: None After obtaining informed consent, the patient was brought to the operating room suite and placed in the supine position. After adequate sedation per anesthesia, topical drops of Tetracaine were given to the right eye. The eye was then prepped and draped in the usual sterile fashion. The operating room microscope was then positioned over the operative eye and a lid speculum placed. A paracentesis was created. Dense cataract required intracarmal air followed by visiblue. Viscoelastic was then instilled into the anterior chamber. A three plane incision was then created temporally, utilizing a 2.85 mm keratome. Capsulotomy forceps were then utilized to create a circular tear capsulotomy. Hydrodissection and hydrodelineation were carried out until adequate mobilization of the nucleus occurred. Phacoemulsification was then utilized to remove the dense central nucleus followed by removal of the cortical material utilizing the automated aspiration irrigation unit. Viscoelastic was instilled into the posterior capsular bag followed by placement of a posterior chamber intraocular lens without difficulty. The residual Viscoelastic was then removed utilizing the automated IA machine. The wound was checked and found to be watertight. The patient tolerated the procedure well and the lid speculum was removed. Intracameral injection of Vigamox 0.1 mL followed by a subtenon injection of Kenalog-40 0.2 mL were administered. The patient will be seen in the a.m.
[2024-11-25 10:54] VITALS: BP 181/67; PULSE 52; RESP 14; TEMP 36.1; O2SAT 100
== END 2024-11-25 11:01 | disposition home or self-care (01) ==
PROVIDERS: PCP Internal Medicine; Visit Provider Ophthalmology
PROC: (CPT 66985; principal; 2024-11-25 11:30)
DX: H25.11 Age-related nuclear cataract, right eye (principal); H52.4 Presbyopia; H18.413 Arcus senilis, bilateral; H11.153 Pinguecula, bilateral; I10 Essential (primary) hypertension; E11.65 Type 2 diabetes mellitus with hyperglycemia; J45.909 Unspecified asthma, uncomplicated; Z79.51 Long term (current) use of inhaled steroids; Z79.899 Other long term (current) drug therapy; Z88.6 Allergy status to analgesic agent; F17.210 Nicotine dependence, cigarettes, uncomplicated; Z79.82 Long term (current) use of aspirin
CPT/HCPCS: 66984; J2250; J3301; V2630

== ENCOUNTER 2024-12-05 11:20 | Outpatient (AMB) | payer MEDICARE, MEDICAID, SELFPAY ==
--- NOTE | 2024-12-05 11:32 | HO.NEPHOV_ITS ---
Vital Signs 12/05/24 11:37 Height 4 ft 11 in Weight 186 lb BMI 37.6 BP 150/104 H Blood Pressure Location Lt brachial Position Sitting Pulse 57 Pulse Source Pulse Oximeter Pulse Oximetry (%) 99 Oxygen Delivery Method Room Air Intake Visit Reasons: INP: Resistant hypertension-Conf Expanded Function Dental Assistant Required: Yes Expanded Function Dental Assistant Language: Co[place]inder Services: Expanded Function Dental Assistant Offered & Declined ([facility] Expanded Function Dental Assistant services refused, pt accompanied by daughter ) Accompanied by: Daughter Allergies felodipine Adverse Reaction (Intermediate, Verified 12/05/24 11:36) leg swelling ibuprofen (From Motrin) Adverse Reaction (Intermediate, Verified 12/09/24 08:48) GI UPSET HPI Comments Details: Thank you for referring Bhavana for evaluation of CKD and resistant hypertension. She is 69 years of age who has been hypertensive for a long time. She is on multiple antihypertensive medications but still her BP is not well controlled. She claims to be compliant with her medications. She is not a diabetic and denies CAD, CVA, CHF , retinopathy or proteinuria. She has PAD but no H/O AUSTEN, hypokalemia, uncontrolled hypothyroidism, hypercalcemia, RANI. She denies edema, chest pain, SOB, orthostatic symptoms, hematuria, palpitations, syncope or flushing. She does not take any excess NSAID's, herbs or has any H/O drug use. Her last serum creatinine has been 1.27 [facility] Medical History (Updated 12/09/24 @ 13:46 by Mundo Gray MD) Bilateral cataracts Irritable bowel syndrome with both constipation and diarrhea Renal cyst Asthma exacerbation Annual physical exam Renal calculi Abscess of nipple, left On beta saniya at home History of anemia IBS (irritable bowel syndrome) GERD (gastroesophageal reflux disease) History of memory loss Elevated cholesterol HTN (hypertension) Asthma Colon cancer screening Seborrheic keratosis Knee pain, right Gastric ulcer Type 2 diabetes mellitus with hyperglycemia Tobacco abuse Obesity (BMI 30-39.9) Otitis externa Osteopenia Illiterate Osteoarthritis Surgical History Hx of right cataract extraction (11/25/24) History of arthroscopy of left knee Hx of section History of hysterectomy H/O colonoscopy with polypectomy History of esophagogastroduodenoscopy (EGD) H/O cystoscopy H/O oophorectomy History of total knee replacement Family History Father Prostate cancer Mother Brain tumor Social History Household Members: None Housing: Apartment Are you a primary health care marketing manager to a significant other at home: No Do you presently have visiting nurse or other home services: No Alcohol intake: current Alcohol intake frequency: does not drink Comment: once q 3 month 1 drinks Patient Tobacco Use Status: Current everyday Tobacco user Tobacco use type: Cigarette Cigarette Packs Per Day: 0.5 Cigarettes Per Day: 10.0 Years Smoked: 2-3 cigarette a day e-Cigarette/Vaping Use: Never Used Second Hand Smoke Exposure: No Use of substances other than those prescribed or required for medical reasons: Yes Are you DNR?: No Advance Directives: No Advance Directives Information Provided: Yes Patient : No : No service: No Current occupational status: disabled Cognitive needs: Yes Hearing needs: No Vision needs: No Review of Systems Const All systems reviewed & are unremarkable except as noted in HPI and below Physical Exam Vital Signs: Last Vital Signs Pulse 57 12/05/24 11:37 BP 150/104 H 12/05/24 11:37 Pulse Ox 99 12/05/24 11:37 Oxygen Delivery Method Room Air 12/05/24 11:37 BMI result Body Mass Index 37.6 Const General: comfortable and no acute distress Orientation/consciousness: patient oriented x3 HEENT Head: Yes normocephalic Mouth: Normal oral and palatal mucosa present Eyes EOM: EOMs intact bilaterally Neck Neck: Yes supple Resp Auscultation: clear to auscultation bilaterally Cardio Jugular venous distension: no JVD Rate: regular rate GI Palpation (GI): Soft to palpation Auscultation: normal bowel sounds General: Yes no CVA tenderness Back/Spine/Pelvis Back: no CVA tenderness Skin General skin exam: no rashes or lesions noted Neuro General: patient oriented x3 and moves all extremities Extrem General: Yes no pedal edema Results Reviewed Nephrology Results: Hgb, (12.0-16.0) 13.2 g/dl 11/14/24 WBC, (4.8-10.8) 6.3 X10*3/uL 11/14/24 Plt Count, (160-400) 237 X10*3/uL 11/14/24 Sodium, (135-145) 140 mmol/L 11/14/24 Potassium, (3.3-5.1) 3.9 mmol/L 11/14/24 Chloride, (96-108) 104 mmol/L 11/14/24 Carbon Dioxide, (22-29) 28 mmol/L 11/14/24 BUN, (9-16) 23 mg/dL H 11/14/24 Creatinine, (0.5-1.4) 1.27 mg/dL 11/14/24 Calcium, (8.4-10.2) 9.6 mg/dL 11/14/24 Urine Protein, (Neg-Trace) Negative mg/dL 11/14/24 Renal US 05/25/24 Assessment & Plan Assessment & Plan (1) Resistant hypertension: Code(s): I1A.0 - Resistant hypertension Category: Medical (2) CKD stage 3a, GFR 45-59 ml/min: Code(s): N18.31 - Chronic kidney disease, stage 3a Category: Medical Plan Her BP is not well controlled. She claims to be compliant with her medications.She has PAD but no H/O AUSTEN, hypokalemia, uncontrolled hypothyroidism, hypercalcemia, RANI. She should be on low sodium diet and continue lifestyle modifications. I have ordered extensive work up including Doppler of renal arteries. I started her on Spironolactone 12.5 mg explaining its common side effects including possibility of hyperkalemia given she is on ACEI. F/U labs ordered given initiation of this medication. She should avoid NSAID's and maintain good hydration. Her last serum creatinine has been 1.27. She has CKD likely from vascular disease and long standing hypertension. She will be a great candidate for SGLT2i in the future. Further management is pending evolving data Orders: Orders Blood Urea Nitrogen 12/05/24 I1A.0 - Resistant hypertension Cortisol Random 12/05/24 I1A.0 - Resistant hypertension Aldosterone 12/05/24 I1A.0 - Resistant hypertension Renin 12/05/24 I1A.0 - Resistant hypertension Aldost/Renin 12/05/24 I1A.0 - Resistant hypertension AMB 24 HR B/P Monitor PLACEMENT 12/05/24 I1A.0 - Resistant hypertension US renal BI 1 Week I1A.0 - Resistant hypertension Electrolytes 12/05/24 I1A.0 - Resistant hypertension Calcium 12/05/24 I1A.0 - Resistant hypertension Creatinine 12/05/24 I1A.0 - Resistant hypertension TSH reflex Free T4 12/05/24 I1A.0 - Resistant hypertension Metanephrines, Plasma 12/05/24 I1A.0 - Resistant hypertension Protein Creatinine Ratio, Ur 12/05/24 I1A.0 - Resistant hypertension US renal doppler 1 Week I1A.0 - Resistant hypertension Medications: New spironolactone 12.5 mg (1/2 x 25 mg) PO DAILY 45 tabs 3RF 90 days Coding Level of Care Code New Pt Level 4 (86750) Diagnoses Resistant hypertension I1A.0 CKD stage 3a, GFR 45-59 ml/min N18.31
[2024-12-05 11:37] VITALS: BP 150/104; PULSE 57; O2SAT 99; BMI 37.6
--- OUTSIDE RECORDS SUMMARY | 2024-12-05 12:09 | XMS_ITS | Clinical Summary ---
Author Organization [address] [place] [address] Address [address] [place] [address] Phone Care Team Providers Care Cash Register Balancer Name Role Phone Michelle Bob MD Primary Care Provider [phone] Allergies Active Allergy Reactions Criticality Noted Date [...] 9:45 AM EDT Office Visit Orthopedic Surgery [address] [phone] Harsha Burnham DPM Arthritis of left ankle (Primary Dx); Tendinitis of left ankle; Dermatophytosis of nail; Arthritis of right ankle; Diabetic mononeuropathy simplex ([facility] V24, [facility] V28); Type II diabetes mellitus with peripheral circulatory disorder ([facility] V24, [facility] V28); Pain in toe of left foot; Pain in toe of right foot 09/17/2024 10:30 AM EDT Office Visit Orthopedic [address] [phone] Harsha Burnham DPM Tendinitis of right ankle (Primary Dx); Plantar fascial fibromatosis; Arthritis of right ankle; Follow-up exam; Dermatophytosis of nail; Type II diabetes mellitus with peripheral circulatory disorder (CMS/HCC V24, [facility] V28); Diabetic mononeuropathy simplex ([facility] V24, [facility] V28) from Last 3 Months Social History [...] AM EDT Office Visit Orthopedic Surgery - [place] [address] [phone] Harsha Burnham, DPM [address] [address] 01/01/2025 7:30 AM EDT Appointment [facility] [address] [place] [phone] Health Maintenance Due Date Last Done Comments [...] of right ankle Arthritis of right ankle [facility] SCREENING DIGITAL Routine 01/01/2024 9:44 AM EDT Encounter for screening mammogram for malignant neoplasm of breast [facility] DEXA AXIAL SKELETON Routine 11/10/2022 7:43 AM [...] IN CLINIC/BEDSIDE ORDERAB LES Final Result * [facility] SCREENING DIGITAL (01/01/2024 9:44 AM EDT) Anatomical Region Laterality Modality Mammography 01/01/2024 6:45 AM EDT Narrative 01/01/2024 9:44 AM EDT [facility] Diagnostic Imaging Department [address] [place] [address] Patient: BHAVANA SHAW /Age/Sex: 1955 - 68 - F Unit#: [id number] Location/Status: [facility] CLI Mnemonic[facility]: [facility] Order[facility] Physician: MICHELLE BOB MD [facility] Screening Digital - 01/01/[address] Report Status:Signed EXAM: [facility] Screening Digital EXAM DATE AND TIME: 01/01/2024 7:23 AM HISTORY: Screening. Right breast biopsy in 2005, pathology benign. COMPARISON: 12/26/22, 12/25/21, 12/17/20 TECHNIQUE: Bilateral digital breast tomosynthesis was performed in the CC and MLO projections. Computer aided detection with [employer] 3D 3.1 was employed. TISSUE DENSITY: b. [...] Procedure Note Amelie Bolton MD - 03/06/2024 [facility] Diagnostic Imaging Department [address] [place] [address] Patient: BHAVANA SHAW /Age/Sex: 1955 - 68 - F Unit#: [id number] Location/Status: [facility] Mnemonic/Ordering Site: [facility] Ordering Physician: MICHELLE BOB MD [facility] Screening Digital - 01/01/24721 Report Status:Signed EXAM: [facility] Screening Digital EXAM DATE AND TIME: 01/01/2024 7:23 AM HISTORY: Screening. Right breast biopsy in 2005, pathology benign. COMPARISON: 12/26/22, 12/25/21, 12/17/20 TECHNIQUE: [facility]. Computer aided detection with iCAD [...] PM EDT Narrative 11/10/2022 7:43 AM EDT [facility] Diagnostic Imaging Department [address] [place] [address] Patient: BHAVANA SHAW /Age/Sex: 1955 - 67 - F Unit#: [id number] Location/Status: [facility] CLI Mnemonic[facility] Ordering Physician: MICHELLE BOB MD [facility] Dexa Axial Skeleton - 11/09/22 - 6374 Report Status:Signed HISTORY: The patient is a [...] probability of hip fracture of 2.4%. Code 98125 Dictating Physician: LEATHA TRIPP MD Electronically Signed by: LEATHA TRIPP MD Dic Date/Time: 11/10/22 0741 Sign date/Time: 11/10/22 0743 Procedure Note Leatha Tripp MD - 06/27/2023 [facility] Diagnostic Imaging Department [address] [place] [address] Patient: BHAVANA SHAW /Age/Sex: 1955 - 67 - F Unit#: [id number] Location/Status: [facility]/REG CLI Mnemonic/Ordering Site: [facility] Ordering Physician: MICHELLE BOB MD [facility] Dexa Axial Skeleton - 11/09/22 [...] density of the femurs bilaterally is 0.833 gm/pi6diyfo is 83% of that of young normals [...] probability of hip fracture of 2.4%. Code 33354 Dictating Physician: LEATHA TRIPP MD Electronically Signed by: LEATHA TRIPP MD Dic Date/Time: 11/10/22740 Sign date/Time: 11/10/22742 Michelle Bob MD IMG BI PROCEDURES Final Result from Last 3 Months or Most Recently Relevant to Health Maintenance Insurance [place] - [place]ARE Care Teams Cash Register Balancer Relationship Specialty Start Date End Date Michelle Bob MD [address] [place] [address] [address] [facility] [place] [address] PCP - General Internal Medicine 06/13/24
--- OUTSIDE RECORDS SUMMARY | 2024-12-05 12:09 | XMS_ITS | Clinical Summary ---
Author Organization [employer] Address [address] [place] [address] 7 [place] [address] Care Team Providers Care Buffer Copper Name Role Phone Unavailable Primary Care Provider [...] patient's age to complete this topic [place] [address] [address] [place] [address] STANDARD
== END 2024-12-05 12:09 | disposition home or self-care (01) ==
LOC: HO.HKAS 11:21
PROVIDERS: PCP Internal Medicine; Visit Provider Internal Medicine Nephrology
DX: I1A.0 Resistant hypertension (principal); N18.31 Chronic kidney disease, stage 3a
CPT/HCPCS: 99204

== ENCOUNTER → 2024-12-05 11:20 | Outpatient (BNVA) | payer MEDICARE, MEDICAID, SELFPAY | PROVIDERS: PCP Internal Medicine; Visit Provider Internal Medicine Nephrology | DX: E11.22 Type 2 diabetes mellitus with diabetic chronic kidney disease (principal); I1A.0 Resistant hypertension; N18.31 Chronic kidney disease, stage 3a | CPT/HCPCS: 99202 ==

== ENCOUNTER 2024-12-09 07:32 | Day surgery (SDC) | payer MEDICARE, MEDICAID, SELFPAY ==
[2024-11-20 16:29] VITALS: BMI 36.8
--- OUTSIDE RECORDS SUMMARY | 2024-12-04 15:15 | XMS_ITS | Clinical Summary ---
Author Organization [address] [place] [address] Address [address] [place] [address] Phone Care Team Providers Care Extruder Name Role Phone Michelle Bob MD Primary Care Provider [phone] Allergies Active Allergy Reactions Criticality Noted Date [...] 9:45 AM EDT Office Visit Orthopedic Surgery [address] [phone] Harsha Burnham DPM Arthritis of left ankle (Primary Dx); Tendinitis of left ankle; Dermatophytosis of nail; Arthritis of right ankle; Diabetic mononeuropathy simplex ([facility] V24, [facility] V28); Type II diabetes mellitus with peripheral circulatory disorder ([facility] V24, [facility] V28); Pain in toe of left foot; Pain in toe of right foot 09/17/2024 10:30 AM EDT Office Visit Orthopedic [address] [phone] Harsha Burnham DPM Tendinitis of right ankle (Primary Dx); Plantar fascial fibromatosis; Arthritis of right ankle; Follow-up exam; Dermatophytosis of nail; Type II diabetes mellitus with peripheral circulatory disorder (CMS/HCC V24, [facility] V28); Diabetic mononeuropathy simplex ([facility] V24, [facility] V28) from Last 3 Months Social History [...] cm (4' 11.02 ) 10/24/2024 9:01 AM EDT Body Mass Index 37.34 10/24/2024 9:01 AM EDT Plan of Treatment Upcoming Encounters Date Type Department Care Team (Late st Contact Info) Description 12/26/2024 9:15 AM EDT Office Visit Orthopedic Surgery - [place] [address] [phone] Harsha Burnham, DPM [address] [address] 01/01/2025 7:30 AM EDT [facility]ment [facility] [address] [place] [phone] Health Maintenance Due Date Last Done Comments [...] Diabetes: Blood Sugar Control Test (HGBA1C) 08/13/2024 Influenza Vaccine (#1) 2025 4, 06/12/2023, 03/08/2022, Additional history exists Breast Cancer Screening 12/31/2025 01/01/20 24, 12/26/2022, 12/26/2021, Additional history exists DTaP,Tdap,and Td Vaccines (2 - Td or Tdap) 09/28/2027 09/27/2017 Osteoporosis Screening (Bone Density Screening) 11/10/2032 11/10/2022, 03/08/2019 Pneumococcal Vaccine: 50+ Years Completed 10/06/2022, 08/29/2016 HIB Vaccines Aged Out No longer eligi [...] of right ankle Arthritis of right ankle [facility] SCREENING DIGITAL Routine 01/01/2024 9:44 AM EDT Encounter for screening mammogram for malignant neoplasm of breast [facility] DEXA AXIAL SKELETON Routine 11/10/2022 7:43 AM EDT Other specified disorders of bone density and structure, multiple sites from Last 3 Months or Most Recently Relevant to Health Maintenance Results * Injection tendon or ligament (10/24/2024 9:45 AM EDT) Harsha Nolan DPM - 10/24/2024 9:45 AM EDT Harsha [...] IN CLINIC/BEDSIDE ORDERAB LES Final Result * [facility] SCREENING DIGITAL (01/01/2024 9:44 AM EDT) Anatomical Region Laterality Modality Mammography 01/01/2024 6:45 AM EDT Narrative 01/01/2024 9:44 AM EDT [facility] Diagnostic Imaging Department [address] [place] [address] Patient: BHAVANA SHAW /Age/Sex: 1955 - 68 - F Unit#: [id number] Location/Status: [facility] CLI Mnemonic[facility]ing [facility]: [facility] Ordering Physician: MICHELLE BOB MD [facility] Screening Digital - 01/01/[address]21 Report Status:Signed EXAM: [facility] Screening Digital EXAM DATE AND TIME: 01/01/2024 7:23 AM HISTORY: Screening. Right breast biopsy in 2005, pathology benign. COMPARISON: 12/26/22, 12/25/21, 12/17/20 TECHNIQUE: Bilateral digital breast tomosynthesis was performed in the CC and MLO projections. Computer aided detection with [employer] 3D 3.1 was employed. TISSUE DENSITY: b. [...] Procedure Note Amelie Bolton MD - 03/06/2024 [facility] Diagnostic Imaging Department [address] [place] [address] Patient: BHAVANA SHAW /Age/Sex: 1955 - 68 - F Unit#: [id number] Location/Status: [facility] Mnemonic/Ordering Site: [facility] Ordering Physician: MICHELLE BOB MD [facility] Screening Digital - 01/01/24721 Report Status:Signed EXAM: [facility] Screening Digital EXAM DATE AND TIME: 01/01/2024 7:23 AM HISTORY: Screening. Right breast biopsy in 2005, pathology benign. COMPARISON: 12/26/22, 12/25/21, 12/17/20 TECHNIQUE: Bilateral digital [facility]. Computer aided detection with [employer] 3D 3.1was employed. TISSUE DENSITY: b. There [...] PM EDT Narrative 11/10/2022 7:43 AM EDT [facility] Diagnostic Imaging Department [address] [place] [address] Patient: BHAVANA SHAW /Age/Sex: 1955 - 67 - F Unit#: [id number] Location/Status: [facility] CLI [facility] Ordering Physician: MICHELLE BOB MD [facility] Dexa Axial Skeleton - 11/09/22 - 0979 Report Status:Signed HISTORY: The patient is a [...] probability of hip fracture of 2.4%. Code 09093 Dictating Physician: LEATHA TRIPP MD Electronically Signed by: LEATHA TRIPP MD Dic Date/Time: 11/10/22 0741 Sign date/Time: 11/10/22 0743 Procedure Note Leatha Tripp MD - 06/27/2023 [facility] Diagnostic Imaging Department [address] [place] [address] Patient: BHAVANA SHAW /Age/Sex: 1955 - 67 - F Unit#: [id number] Location/Status: [facility]/REG CLI Mnemonic/Ordering Site: [facility] Ordering Physician: MICHELLE BOB MD [facility] Dexa Axial Skeleton - 11/09/22 - 1330 [...] density of the femurs bilaterally is 0.833 gm/la1unmls is 83% of that of young normals [...] probability of hip fracture of 2.4%. Code 48638 Dictating Physician: LEATHA RTIPP MD Electronically Signed by: LEATHA TRIPP MD Dic Date/Time: 11/10/22740 Sign date/Time: 11/10/22742 Michelle Bob MD IMG BI PROCEDURES Final Result from Last 3 Months or Most Recently Relevant to Health Maintenance Insurance MEDICA[place] - [place] MEDICARE Care Teams Extruder Relationship Specialty Start Date End Date Michelle Bob MD [address] [place] [address] [address] [facility] [place] [address] PCP - General Internal Medicine 06/13/24
--- OUTSIDE RECORDS SUMMARY | 2024-12-04 15:15 | XMS_ITS | Clinical Summary ---
Author Organization [employer] Address [address] [place] [address] 7 [place] [address] Care Team Providers Care Transit Specialist Name Role Phone Unavailable Primary Care Provider Unavailabl e Immunizations Immunization Administration Dates Next Due Pfizer Covid-19 Vaccine [...] of 2) 08/11/2005 COVID-19 Vaccine (5 - season) 2024 07/25/2022, 06/10/2021, 10/08/2020, Additional history exists Influenza Vaccine (#1) 2025 RSV Patients and Patients Aged 60 years [...] patient's age to complete this topic [place] [address] [place] [address] STANDARD
--- NOTE | 2024-12-06 10:12 | P.CONAN_ITS ---
Documented by User: Karlee Smith NP 12/06/24 10:12 HPI - Anesthesia Eval Consult details Narrative: 69yo F for Left Cataract Extraction IOL Insertion Right eye 11/25/24: Midaz 1 PMFSH Active Problems Active Problems: All Active Problems Resistant hypertension (Acute) Preoperative clearance (Acute) Microscopic hematuria (Acute) Foreign body of ear, left (Acute) Plantar fasciitis of right foot (Acute) Bilateral knee pain (Acute) Medicare annual wellness visit, subsequent (Acute) CKD (chronic kidney disease) (Acute) Constipation (Acute) Bilateral lower extremity edema (Acute) Painful arc syndrome of left shoulder (Acute) Ankle pain, right (Acute) Memory changes (Acute) Shoulder pain, left (Acute) Osteoarthritis of left hip (Acute) Peripheral vascular disease (Acute) Age-related osteoporosis without current pathological fracture (Acute) Bicipital tendinitis of right shoulder (Acute) Allergic rhinitis (Acute) Annual physical exam (Acute) Hip pain, right (Acute) Right groin pain (Acute) GERD (gastroesophageal reflux disease) (Acute) High cholesterol (Acute) HTN (hypertension), benign (Acute) Asthma (Acute) Low vitamin D level (Acute) Plantar warts (Acute) Hematuria (Acute) Otitis externa (Acute) Renal cyst (Acute) Illiterate (Acute) Type 2 diabetes mellitus with hyperglycemia (Acute) Tobacco abuse (Acute) Obesity (BMI 30-39.9) (Acute) Past Medical History Medical History (Updated 11/20/24 @ 16:21 by Linda Elizalde, RN) Bilateral cataracts Irritable bowel syndrome with both constipation and diarrhea Renal cyst Asthma exacerbation Annual physical exam Renal calculi Abscess of nipple, left On beta saniya at home History of anemia IBS (irritable bowel syndrome) GERD (gastroesophageal reflux disease) History of memory loss Elevated cholesterol HTN (hypertension) Asthma Colon cancer screening Seborrheic keratosis Knee pain, right Gastric ulcer Type 2 diabetes mellitus with hyperglycemia Tobacco abuse Obesity (BMI 30-39.9) Otitis externa Osteopenia Illiterate Osteoarthritis Family History Family History Father Prostate cancer Mother Brain tumor Family history of problems with anesthesia: No Surgical History Surgical History Hx of right cataract extraction (11/25/24) History of arthroscopy of left knee Hx of section History of hysterectomy H/O colonoscopy with polypectomy History of esophagogastroduodenoscopy (EGD) H/O cystoscopy H/O oophorectomy History of total knee replacement History of Problems with Anesthesia: No Social History Social History Household Members: None Housing: Apartment Are you a primary healthcare or medical to a significant other at home: No Do you presently have visiting nurse or other home services: No Alcohol intake: current Alcohol intake frequency: does not drink Comment: once q 3 month 1 drinks Patient Tobacco Use Status: Current everyday Tobacco user Tobacco use type: Cigarette Cigarette Packs Per Day: 0.5 Cigarettes Per Day: 10.0 Years Smoked: 2-3 cigarette a day e-Cigarette/Vaping Use: Never Used Second Hand Smoke Exposure: No Use of substances other than those prescribed or required for medical reasons: Yes Are you DNR?: No Advance Directives: No Advance Directives Information Provided: Yes Patient : No : No service: No Current occupational status: disabled Cognitive needs: Yes Hearing needs: No Vision needs: No Meds Allergies Allergy/AdvReac Type Severity Reaction Status Date / Time felodipine AdvReac Intermediate leg Verified 12/05/24 11:36 swelling ibuprofen (From Motrin) AdvReac Intermediate GI UPSET Verified 12/09/24 08:48 Exam Height,Weight and Vital Signs: Height 4 ft 11 in Weight 82.667 kg Assessment and Plan Assessment Anesthesia Assessment: Chart Reviewed Final Anesthetic Review Family History of Problems with Anesthesia: No History of Problems with Anesthesia: No Documented by User: Tanya Mckee MD 12/09/24 10:00 [facility] Past Medical History Medical History (Updated 11/20/24 @ 16:21 by Linda Elizalde RN) Bilateral cataracts Irritable bowel syndrome with both constipation and diarrhea Renal cyst Asthma exacerbation Annual physical exam Renal calculi Abscess of nipple, left On beta saniya at home History of anemia IBS (irritable bowel syndrome) GERD (gastroesophageal reflux disease) History of memory loss Elevated cholesterol HTN (hypertension) Asthma Colon cancer screening Seborrheic keratosis Knee pain, right Gastric ulcer Type 2 diabetes mellitus with hyperglycemia Tobacco abuse Obesity (BMI 30-39.9) Otitis externa Osteopenia Illiterate Osteoarthritis Family History Family History Father Prostate cancer Mother Brain tumor Surgical History Surgical History Hx of right cataract extraction (11/25/24) History of arthroscopy of left knee Hx of section History of hysterectomy H/O colonoscopy with polypectomy History of esophagogastroduodenoscopy (EGD) H/O cystoscopy H/O oophorectomy History of total knee replacement Social History Social History Household Members: None Housing: Apartment Are you a primary healthcare or medical to a significant other at home: No Do you presently have visiting nurse or other home services: No Alcohol intake: current Alcohol intake frequency: does not drink Comment: once q 3 month 1 drinks Patient Tobacco Use Status: Current everyday Tobacco user Tobacco use type: Cigarette Cigarette Packs Per Day: 0.5 Cigarettes Per Day: 10.0 Years Smoked: 2-3 cigarette a day e-Cigarette/Vaping Use: Never Used Second Hand Smoke Exposure: No Use of substances other than those prescribed or required for medical reasons: Yes Are you DNR?: No Advance Directives: No Advance Directives Information Provided: Yes Patient : No : No service: No Current occupational status: disabled Cognitive needs: Yes Hearing needs: No Vision needs: No Meds Allergies Allergy/AdvReac Type Severity Reaction Status Date / Time felodipine AdvReac Intermediate leg Verified 12/05/24 11:36 swelling ibuprofen (From Motrin) AdvReac Intermediate GI UPSET Verified 12/09/24 08:48 Exam Airway Mallampati Class: II TM Dist: >3cm Neck ROM: Limited Heart: rrr Lungs: cta Assessment and Plan Assessment Anesthesia Assessment: Anesthesia Plan Discussed Final Anesthetic Review NPO: Yes ASA Class: III Final Preanesthetic Review: No Changes in Pt Med Stat, Meds/Allgs Chart Reviewed, Consent Obtained/Reviewed and Anes Risks/Benef Reviewed Patient Risk: Intermediate Procedure Risk: Low Anesthetic Plan Anesthetic Plan: MAC: Disposition: Standard PACU
[2024-12-09 08:56] VITALS: BP 185/75; PULSE 53; RESP 16; TEMP 36.2; O2SAT 96
[2024-12-09] MEDS: Tetracaine HCl/PF 0.5% Oph Sol 4 ML DROPS 1 DROP EYE-LEFT (09:02)
[2024-12-09] MEDS: Cyclopentolate 1 % Ophth Sol 2 ML DRPBTL 1 DROP EYE-LEFT ×3 (09:03→09:09)
[2024-12-09] MEDS: Tropicamide 1 % Ophth Sol 3 ML BTL 1 DROP EYE-LEFT ×3 (09:04→09:10)
[2024-12-09] MEDS: Ketorolac Tromethamine 0.5% Op 5 ML DROPS 1 DROP EYE-LEFT ×3 (09:04→09:11)
[2024-12-09] MEDS: Phenylephrine HCL 2.5% Oph SoL 2 ML BOTTLE 1 DROP EYE-LEFT ×3 (09:06→09:12)
[2024-12-09] MEDS: Lactated Ringers 500 ML 50 ML IV (09:13)
[2024-12-09 09:19] VITALS: PULSE 49
--- NOTE | 2024-12-09 09:35 | MHC.SHP ---
Pre-Procedural Eval Section A - 24 Hr Update-Section A only Date of Service: 12/09/24 The patient is an INPATIENT: No Changes since office visit: No Cold of Flu in the past 2 weeks, No New Medical Problems, No Changes in Medication and No Patient answered all questions The patient has been examined within 24 hours of the surgical procedure. The History & Physical has been completed within 30 days and I have reviewed it.: Yes Section B - Complete if H&P > 30 days Chief Complaint: Age-related nuclear cataract, left eye Allergies: Allergies Allergy/AdvReac Type Severity Reaction Status Date / Time felodipine AdvReac Intermediate leg Verified 12/05/24 11:36 swelling ibuprofen (From Motrin) AdvReac Intermediate GI UPSET Verified 12/09/24 08:48 Plan Diagnosis/Plan: Unchanged I have reviewed the history and physical and performed a pertinent physical examination on my patient. No changes have occurred unless specified. Time Spent With Patient Time: Total time managing care of this patient today ____ minutes.
--- NOTE | 2024-12-09 09:36 | HO.PNOPHT ---
Ophthalmology Procedure Procedure Date of Service: 12/09/24 Ophthalmology Viscoelastic: Healon Duet Dual Pack Pro Ophthalmology Lenses: IOL Acrysof MP - [id number] (23) Procedure Notes: PREOPERATIVE DIAGNOSIS: Decreased visual acuity left eye secondary to cataract POSTOPERATIVE DIAGNOSIS: Same PROCEDURE: Left cataract extraction with intraocular lens insertion SURGEON: Cisco Estrada M.D. ANESTHESIA: Topical/MAC ESTIMATED BLOOD LOSS: None COMPLICATIONS: None After obtaining informed consent, the patient was brought to the operation room suite and placed in the supine position. After adequate sedation per anesthesia, topical drops of Tetracaine were given to the left eye. The eye was then prepped and draped in the usual sterile fashion. The operating room microscope was then positioned over the operative eye and a lid speculum placed. A paracentesis was created. Viscoelastic was then instilled into the anterior chamber. A three plane incision was then created temporally, utilizing a 2.85 mm keratome. Capsulotomy forceps were then utilized to create a circular tear capsulotomy. Hydrodissection and hydrodelineation were carried out until adequate mobilization of the nucleus occurred. Phacoemulsification was then utilized to remove the dense central nucleus followed by removal of the cortical material utilizing the automated aspiration irrigation unit. Viscoat elastic was instilled into the posterior capsular bag followed by placement of a posterior chamber intraocular lens without difficulty. The residual Viscoat elastic was then removed utilizing the automated IA machine. The wound was check and found to be watertight. The patient tolerated the procedure well and the lid speculum was removed. Intracameral injection of Vigamox 0.1 mL followed by a subtenon injection of Kenalog-40 0.2 mL were administered. The patient will be seen in the a.m.
[2024-12-09 10:03] VITALS: BP 128/105; PULSE 61; RESP 16; TEMP 36.1; O2SAT 99
== END 2024-12-09 10:15 | disposition home or self-care (01) ==
PROVIDERS: Visit Provider Ophthalmology
PROC: (CPT 66985; principal; 2024-12-09 10:00)
DX: H25.12 Age-related nuclear cataract, left eye (principal); H52.4 Presbyopia; H18.413 Arcus senilis, bilateral; H11.153 Pinguecula, bilateral; I10 Essential (primary) hypertension; E78.00 Pure hypercholesterolemia, unspecified; J45.909 Unspecified asthma, uncomplicated; E11.9 Type 2 diabetes mellitus without complications; K21.9 Gastro-esophageal reflux disease without esophagitis; Z79.82 Long term (current) use of aspirin; Z79.899 Other long term (current) drug therapy; Z79.51 Long term (current) use of inhaled steroids; Z88.6 Allergy status to analgesic agent; F17.210 Nicotine dependence, cigarettes, uncomplicated
CPT/HCPCS: 66984; J2250; J3301; V2630

== ENCOUNTER → 2024-12-18 10:44 | Outpatient (BNVA) | payer MEDICARE, MEDICAID, SELFPAY | PROVIDERS: Visit Provider Internal Medicine Nephrology | DX: Z01.30 Encounter for examination of blood pressure without abnormal findings (principal) | CPT/HCPCS: 93786; 93788 ==

== ENCOUNTER 2024-12-19 14:40 | Outpatient (AMB) | payer MEDICARE, MEDICAID, SELFPAY ==
--- OUTSIDE RECORDS SUMMARY | 2024-12-19 14:45 | XMS_ITS | Clinical Summary ---
Author Organization [employer] Address [address] [place] [address] 7 [place] [address] Care Team Providers Care Veterans Employment Representative Name Role Phone Unavailable Primary Care Provider [...] patient's age to complete this topic [place] [address] [address] STANDARD
--- OUTSIDE RECORDS SUMMARY | 2024-12-19 14:45 | XMS_ITS | Clinical Summary ---
Author Organization [address] [place] [address] Address [address] [place] [address] Phone Care Team Providers Care Varying Exceptionalities Teacher Name Role Phone Michelle Bob MD Primary Care Provider [phone] Allergies Active Allergy Reactions Criticality Noted Date [...] AM EDT Office Visit Orthopedic Surgery - [address] [phone] Harsha Burnham, DPM Arthritis of left ankle (Primary Dx); Tendinitis of left ankle; Dermatophytosis of nail; Arthritis of right ankle; Diabetic mononeuropathy simplex (CMS/HCC V24, CMS/HCC V28); Type II diabetes mellitus with peripheral circulatory disorder (CMS/HCC V24, CMS/HCC V28); Pain in toe of left foot; Pain in toe of right foot from Last 3 Months Social History Tobacco [...] AM EDT Office Visit Orthopedic Surgery - [place] [address] [phone] Harsha Burnham, DPM [address] [address] 01/01/2025 7:30 AM EDT [facility]ointment [facility] [address] [place] [phone] Health Maintenance Due Date Last Done Comments Diabetes: Annual Foot Exam 08/11/1965 Diabetes: Annual Retina Eye Exam 08/11/1965 Zoster Vaccines (1 of 2) 08/11/2005 RSV Immunization Adult Patients (1 - Risk 60-74 years 1-dose series) 2015 Cholesterol Screening (Lipid Panel) 04/24/2022 Colorectal Cancer Screening: Colonoscopy 04/24/2022 Falls Risk Assessment 04/24/2022 Hepatitis C Screening 04/24/2022 Medicare Annual Wellness Visit 04/24/2022 Social Influencers of Health Screening 04/24/2022 COVID-19 Vaccine ( season) 2024 07/25/2022, 05/31/2021, 10/08/2020, Additional history exists Depression Screening 05/22/2024 Diabetes: Annual Urine Albumin-Creatinine Ratio (uACR) 08/13/2024 Diabetes: Blood Sugar Control Test (HGBA1C) 08/13/2024 Influenza Vaccine (#1) 2025 4, 06/12/2023, 03/08/2022, Additional history exists Diabetes: Annual GFR (Glomerular Filtration Rate) 12/17/2025 12/17/2024 Hypertension/CHF/CAD Annual BMP Blood Test 12/17/2025 12/17/2024 Breast Cancer Screening 12/31/2025 01/01/20 24, 12/26/2022, [...] Procedure Name Priority Date/Time Associated Diagnosis Comments PROTEIN AND CREATININE WITH RATIO, URINE Routine 12/17/2024 11:52 AM EDT Resistant hypertension THYROID STIMULATING HORMONE WITH REFLEX TO FREE T4 AND FREE T3 Routine 12/17/2024 11:45 AM EDT Resistant hypertension CREATININE, SERUM Routine 12/17/2024 11: 45 AM EDT Resistant hypertension CALCIUM Routine 12/17/2024 11:45 AM EDT Resistant hypertension ELECTROLYTE PANEL Routine 12/17/2024 11: 45 AM EDT Resistant hypertension CORTISOL Routine 12/17/2024 11:45 AM EDT Resistant hypertension BUN Routine 12/17/2024 11:45 AM EDT Resistant hypertension INJECTION TENDON OR LIGAMENT Routine 10/24/2024 9:45 AM EDT Tendinitis of left ankle CALEB SCREENING DIGITAL Routine 01/01/2024 9:44 AM EDT Encounter for screening mammogram for malignant neoplasm of breast [facility] DEXA AXIAL SKELETON Routine 11/10/2022 7:43 AM EDT Other specified disorders of bone density and structure, multiple sites from Last 3 Months or Most Recently Relevant to Health Maintenance Results * Protein and creatinine with ratio, urine (12/17/2024 11:52 AM EDT) Protein, Urine 11 mg/dL LAB CHEMISTRY METHOD 12/17/2024 3:30 PM EDT [facility] Prot/Creat, Ur 0.11 <=0.20 mg/mg creat LAB CHEMISTRY METHOD 12/17/2024 3:30 PM EDT [facility] Creatinine, Urine 102.0 mg/dL LAB CHEMISTRY METHOD 12/17/2024 3:30 PM EDT [facility] Urine Urine specimen obtained by clean catch procedure / Unknown Non-blood Collection / Unknown 12/17/2024 11:52 AM EDT 12/17/2024 1:25 PM EDT us Mundo Gray MD LAB URINE ORDERABLES Final Resul t [facility] [address] [place] [address], [place] [phone] * Thyroid stimulating hormone with reflex to free t4 and free t3 (12/17/2024 11:45 AM EDT) [facility] TSH 1.74 0.40 - 4.00 mcIU/mL LAB CHEMISTRY METHOD 12/17/2024 4:25 PM EDT [facility] Blood Venous blood specimen / Unknown Venipuncture / Unknown 12/17/2024 11:45 AM EDT 12/17/2024 1:26 PM EDT us Mundo Gray MD LAB BLOOD ORDERABLES Final Resul t [facility] [address] [place] [address], [place] [phone] * (ABNORMAL) Creatinine (12/17/2024 11:45 AM EDT) Pathologist [facility] Creatinine 1.15(H) 0.50 - 1.10 mg/dL LAB CHEMISTRY METHOD 12/17/2024 3:22 PM EDT [facility] eGFR 52(L) >=60 mL/min/1. 73m2 LAB CHEMISTRY METHOD 12/17/2024 3:22 PM EDT [facility] Comment:Calculation based on the Chronic Kidney Disease Epidemiology Collaboration (CKD-EPI) equation refit without adjustment for race. Blood Venous blood specimen / Unknown Venipuncture / Unknown 12/17/2024 11:45 AM EDT 12/17/2024 1:26 PM EDT us Mundo Gray MD LAB BLOOD ORDERABLES Final Resul t Performing Organization Address [facility] de Phone Number [facility] [address] [place] [address], [place] [phone] * BUN (12/17/2024 11:45 AM EDT) [facility] BUN 19 5 - 25 mg/dL LAB CHEMISTRY METHOD 12/17/2024 3:22 PM EDT [facility] Blood Venous blood specimen / Unknown Venipuncture / Unknown 12/17/2024 11:45 AM EDT 12/17/2024 1:26 PM EDT us Mundo Gray MD LAB BLOOD ORDERABLES Final Resul t Performing Organization Address [facility] Co de Phone Number [facility] [address] [place] [address], [place] [phone] * Cortisol (12/17/2024 11:45 AM EDT) Pathologist [facility] Cortisol 5.0 mcg/dL LAB CHEMISTRY METHOD 12/17/2024 4:25 PM EDT [facility] Blood Venous blood specimen / Unknown Venipuncture / Unknown 12/17/2024 11:45 AM EDT 12/17/2024 1:26 PM EDT Narrative [facility] - 12/17/2024 4:25 PM EDT CORTISOL REFERENCE RANGE 8 AM SPEC: 5.0-23.0 mcg/dL 4 PM SPEC: 3.0-16.0 mcg/dL 8 PM SPEC: <5.0 mcg/dL us Mundo Gray MD LAB BLOOD ORDERABLES Final Resul t Performing Organization Address City/[facility]/ZIP Co de Phone Number [facility] [address] [place] [address], [place] [phone] * Calcium (12/17/2024 11:45 AM EDT) Calcium 9.2 8.5 - 10.5 mg/dL LAB CHEMISTRY METHOD 12/17/2024 3:22 PM EDT [facility] Blood Venous blood specimen / Unknown Venipuncture / Unknown 12/17/2024 11:45 AM EDT 12/17/2024 1:26 PM EDT us Mundo Gray MD LAB BLOOD ORDERABLES Final Resul t [facility] [address] [place] [address], [place] [phone] * Electrolyte panel (12/17/2024 11:45 AM EDT) Sodium 140 133 - 145 mmol/L LAB CHEMISTRY METHOD 12/17/2024 3:23 PM EDT [facility] Potassium 4.5 3.5 - 5.5 mmol/L LAB CHEMISTRY METHOD 12/17/2024 3:23 PM EDT [facility] Chloride 106 96 - 110 mmol/L LAB CHEMISTRY METHOD 12/17/2024 3:23 PM EDT [facility] CO2 29 21 - 32 mmol/L LAB CHEMISTRY METHOD 12/17/2024 3:23 PM EDT [facility] Anion Gap 5 3 - 11 LAB CHEMISTRY METHOD 12/17/2024 3:23 PM EDT [facility] Blood Venous blood specimen / Unknown Venipuncture / Unknown 12/17/2024 11:45 AM EDT 12/17/2024 1:26 PM EDT Mundo Gray MD LAB BLOOD ORDERABLES Final Resul t [facility] [address] [place] [address], * Injection tendon or ligament (10/24/2024 9:45 AM EDT) Narrative Harsha Burnham DPM - 10/24/2024 9:45 AM EDT Harsha Burnham DPM 10/24/2024 12:37 PM Injection tendon or ligament Indications: pain Details: 25 G needle Medications: 0.5 mL lidocaine (PF) 1 %; 20 mg triamcinolone acetonide 40 mg/mL Informed Consent: Site: Foot ligament tendon Harsha Burnham DPM IN CLINIC/BEDSIDE ORDERAB LES Final Result * CALEB SCREENING DIGITAL (01/01/2024 9:44 AM EDT) Anatomical Region Laterality Modality Mammography 01/01/2024 6:45 AM EDT Narrative 01/01/2024 9:44 AM EDT [facility] Diagnostic Imaging Department [address] [place], [place] [id number] Patient: COLIN,BHAVANA /Age/Sex: 1955 - 68 - F Unit#: [id number] Location/Status: SPDIMAM/REG CLI Mnemonic/Ordering Site: [facility] Ordering Physician: MICHELLE BOB MD [facility] Screening Digital - 01/01/24721 Report Status:Signed EXAM: [facility] Screening Digital EXAM DATE AND TIME: 01/01/2024 7:23 AM HISTORY: Screening. Right breast biopsy in 2005, pathology benign. COMPARISON: 12/26/22, 12/25/21, 12/17/20 TECHNIQUE: Bilateral digital breast tomosynthesis was performed in the CC and MLO projections. Computer aided detection with CoinBatch 3D 3.1 was employed. TISSUE DENSITY: b. [...] [facility] Diagnostic Imaging Department [address] [place], [place] [id number] Patient: BHAVANA SHAW /Age/Sex: 1955 - 68 - F Unit#: [id number] Location/Status: SPDIMAM/REG CLI Mnemonic/Ordering Site: [facility] Ordering Physician: MICHELLE BOB MD [facility] Screening Digital - 01/01/24721 Report Status:Signed EXAM: [facility] Screening Digital EXAM DATE AND TIME: 01/01/2024 7:23 AM HISTORY: Screening. Right breast biopsy in 2005, pathology benign. COMPARISON: 12/26/22, 12/25/21, 12/17/20 TECHNIQUE: Bilateral digital breast tomosynthesis was performed in the CCand MLO projections. Computer aided detection with Digital Ally AI 3D 3.1was employed. TISSUE DENSITY: b. [...] Signed by: AMELIE BOLTON MD Dic Date/Time: 01/01/24 0943 Sign date/Time: 01/01/2444 Michelle Bob MD IMG BI PROCEDURES Final Result * [facility] DEXA AXIAL SKELETON (11/10/2022 7:43 AM EDT) Anatomical Region Laterality Modality Mammography 11/09/2022 12:3 3 PM EDT Narrative 11/10/2022 7:43 AM EDT [facility] Diagnostic Imaging Department [address] [place], [place] [id number] Patient: BHAVANA SHAW /Age/Sex: 1955 - 67 - F Unit#: [id number] Location/Status: [facility]/REG CLI Mnemonic[facility] Ordering Physician: MICHELLE BOB MD [facility] Dexa Axial Skeleton - 11/09/22 - 0780 Report Status:Signed HISTORY: The patient is a [...] probability of hip fracture of 2.4%. Code 98547 Dictating Physician: LEATHA TRIPP MD Electronically Signed by: LEATHA TRIPP MD Dic Date/Time: 11/10/22740 Sign date/Time: 11/10/2243 Procedure Note Leatha Tripp MD - 06/27/2023 [facility] Diagnostic Imaging Department [address] [place] [address] Patient: BHAVANA SHAW /Age/Sex: 1955 - 67 - F Unit#: [id number] Location/Status: SPDIMA/REG CLI Mnemonic[facility] Ordering Physician: MICHELLE BOB MD [...] density of the femurs bilaterally is 0.833 gm/[id number] is 83% of that of young normals [...] probability of hip fracture of 2.4%. Code 51068 Dictating Physician: LEATHA TRIPP MD Electronically Signed by: LEATHA TRIPP MD Dic Date/Time: 11/10/22 0741 Sign date/Time: 11/10/22 0743 Michelle Bob MD IMG BI PROCEDURES Final Result from Last 3 Months or Most Recently Relevant to Health Maintenance Insurance MEDICAID - [place] MEDICARE Care Teams Varying Exceptionalities Teacher Relationship Specialty Start Date End Date Michelle Bob MD [address] [place] [address] [address] [facility] [place] [address] PCP - General Internal Medicine 06/13/24
--- NOTE | 2024-12-19 14:50 | HO.NEPHOV_ITS ---
Vital Signs 3 12/19/24 14:53 Height 4 ft 11 in Weight 186 lb BMI 37.6 BP 130/70 Blood Pressure Location Lt brachial Position Sitting Pulse 53 Pulse Source Pulse Oximeter Pulse Oximetry (%) 98 Oxygen Delivery Method Room Air Intake Visit Reasons: 2wks w labs-Conf Intake Note: Senior Payroll Specialist Required: Yes Senior Payroll Specialist Language: Multigrapher Services: Senior Payroll Specialist Offered & Declined ([facility] Senior Payroll Specialist services refused ) Accompanied by: Daughter Allergies felodipine Adverse Reaction (Intermediate, Verified 12/19/24 14:53) leg swelling ibuprofen (From Motrin) Adverse Reaction (Intermediate, Verified 12/19/24 14:53) GI UPSET HPI Comments Details: Bhavana was seen for follow up of CKD and resistant hypertension. She is 69 years of age who has been hypertensive for a long time. She is on multiple antihypertensive medications but still her BP is not well controlled. She claims to be compliant with her medications. She is not a diabetic and denies CAD, CVA, CHF , retinopathy or proteinuria. She has PAD but no H/O AUSTEN, hypokalemia, uncontrolled hypothyroidism, hypercalcemia, RANI. She denies edema, chest pain, SOB, orthostatic symptoms, hematuria, palpitations, syncope or flushing. She does not take any excess NSAID's, herbs or has any H/O drug use. Her last serum creatinine has been 1.27. She had a 24 hour BPM which showed uncontrolled BP [facility] Medical History (Updated 12/09/24 @ 13:46 by Mundo Gray MD) Bilateral cataracts Irritable bowel syndrome with both constipation and diarrhea Renal cyst Asthma exacerbation Annual physical exam Renal calculi Abscess of nipple, left On beta saniya at home History of anemia IBS (irritable bowel syndrome) GERD (gastroesophageal reflux disease) History of memory loss Elevated cholesterol HTN (hypertension) Asthma Colon cancer screening Seborrheic keratosis Knee pain, right Gastric ulcer Type 2 diabetes mellitus with hyperglycemia Tobacco abuse Obesity (BMI 30-39.9) Otitis externa Osteopenia Illiterate Osteoarthritis Surgical History Hx of right cataract extraction (11/25/24) History of arthroscopy of left knee Hx of section History of hysterectomy H/O colonoscopy with polypectomy History of esophagogastroduodenoscopy (EGD) H/O cystoscopy H/O oophorectomy History of total knee replacement Family History Father Prostate cancer Mother Brain tumor Social History Household Members: None Housing: Apartment Are you a primary career and transition teacher to a significant other at home: No Do you presently have visiting nurse or other home services: No Alcohol intake: current Alcohol intake frequency: does not drink Comment: once q 3 month 1 drinks Patient Tobacco Use Status: Current everyday Tobacco user Tobacco use type: Cigarette Cigarette Packs Per Day: 0.5 Cigarettes Per Day: 10.0 Years Smoked: 2-3 cigarette a day e-Cigarette/Vaping Use: Never Used Second Hand Smoke Exposure: No service: No Current occupational status: disabled Cognitive needs: Yes Hearing needs: No Vision needs: No Review of Systems Const All systems reviewed & are unremarkable except as noted in HPI and below Physical Exam Vital Signs: Last Vital Signs Pulse 53 12/19/24 14:53 BP 130/70 12/19/24 14:53 Pulse Ox 98 12/19/24 14:53 Oxygen Delivery Method Room Air 12/19/24 14:53 BMI result Body Mass Index 37.6 Const General: comfortable and no acute distress Orientation/consciousness: patient oriented x3 HEENT Head: Yes normocephalic Mouth: Normal oral and palatal mucosa present Eyes EOM: EOMs intact bilaterally Neck Neck: Yes supple Resp Auscultation: clear to auscultation bilaterally Cardio Jugular venous distension: no JVD Rate: regular rate GI Palpation (GI): Soft to palpation Auscultation: normal bowel sounds General: Yes no CVA tenderness Back/Spine/Pelvis Back: no CVA tenderness Skin General skin exam: no rashes or lesions noted Neuro General: patient oriented x3 and moves all extremities Extrem General: Yes no pedal edema Results Reviewed Nephrology Results: 2 Renal US 05/25/24 Assessment & Plan Assessment & Plan (1) HTN (hypertension), benign: Code(s): I10 - Essential (primary) hypertension Category: Medical (2) CKD stage 3a, GFR 45-59 ml/min: Code(s): N18.31 - Chronic kidney disease, stage 3a Category: Medical Plan Her BP is not well controlled by 24 hour BPM. She claims to be compliant with her medications.She has PAD but no H/O AUSTEN, hypokalemia, uncontrolled hypothyroidism, hypercalcemia, RANI. She should be on low sodium diet and continue lifestyle modifications. Doppler of renal arteries pending. I increased her Spironolactone to 25 mg explaining its common side effects including possibility of hyperkalemia given she is on ACEI. F/U labs ordered given initiation of this medication. She should avoid NSAID's and maintain good hydration. Her last serum creatinine has been 1.27. She has CKD likely from vascular disease and long standing hypertension. She will be a great candidate for SGLT2i in the future. Further management is pending evolving data Orders: Orders 2 Creatinine 4 Weeks I10 - Essential (primary) hypertension Blood Urea Nitrogen 4 Weeks I10 - Essential (primary) hypertension Electrolytes 4 Weeks I10 - Essential (primary) hypertension Medications: Changed 2 From spironolactone 12.5 mg (1/2 x 25 mg) PO DAILY 90 days 45 tabs 3RF To spironolactone 25 mg PO DAILY 90 tabs 3RF 90 days Coding Level of Care Code Est Pt Level 4 (11121) 54382 ABPM Reading Diagnoses HTN (hypertension), benign I10 CKD stage 3a, GFR 45-59 ml/min N18.31
[2024-12-19 14:53] VITALS: BP 130/70; PULSE 53; O2SAT 98; BMI 37.6
== END 2024-12-19 15:31 | disposition home or self-care (01) ==
LOC: HO.HKAS 14:41
PROVIDERS: PCP Internal Medicine; Visit Provider Internal Medicine Nephrology
DX: I12.9 Hypertensive chronic kidney disease with stage 1 through stage 4 chronic kidney disease, or unspecified chronic kidney disease (principal); N18.31 Chronic kidney disease, stage 3a
CPT/HCPCS: 93790; 99214

== ENCOUNTER → 2024-12-19 14:40 | Outpatient (BNVA) | payer MEDICARE, MEDICAID, SELFPAY | PROVIDERS: PCP Internal Medicine; Visit Provider Internal Medicine Nephrology | DX: I12.9 Hypertensive chronic kidney disease with stage 1 through stage 4 chronic kidney disease, or unspecified chronic kidney disease (principal); N18.31 Chronic kidney disease, stage 3a | CPT/HCPCS: 99212 ==

== ENCOUNTER 2025-01-09 09:57 | Outpatient (REF) | payer MEDICARE, MEDICAID, SELFPAY ==
--- OUTSIDE RECORDS SUMMARY | 2025-01-09 11:23 | XMS_ITS | Clinical Summary ---
Author Organization [address] [place] [address] Address [address] [place] [address] Phone Care Team Providers Care Corn Detasseler Machine Operator Name Role Phone Michelle Bob MD Primary Care Provider [phone] Allergies Active Allergy Reactions Criticality Noted Date [...] lidocaine (PF) (XYLOCAINE-MPF) 1 % injection 0.5 mLIndications:Arthri tis of left ankle,Tendinitis of left ankle .5 mL inj Once PRN Procedure 12/26/2024 12/26/2024 Ended triamcinolone acetonide (KENALOG-40) 40 mg/mL injection 20 mgIndications:Arthri tis of left ankle,Tendinitis of left ankle 20 mg IAtc Once PRN Procedure 12/26/2024 12/26/2024 Ended Encounters Date Type Department Care Team Description 01/01/2025 6:53 AM EDT - 01/01/2025 11:59 PM EDT [facility] [address] [address] Encounter for screening mammogram for breast cancer Discharge Disposition: Home or Self Care 12/26/2024 9:15 AM EDT Office Visit Orthopedic Surgery [place] [address] [phone] Harsha Burnham, DPM Arthritis of left ankle (Primary Dx); Tendinitis of left ankle; Dermatophytosis of nail; Diabetic mononeuropathy simplex (CMS/HCC V24, CMS/HCC V28); Pain in toe of right foot; Pain in toe of left foot; Type II diabetes mellitus with peripheral circulatory disorder ([facility] V24, [facility] V28) 10/24/2024 9:45 AM EDT Office Visit [facility] [address] [phone] Harsha Burnham DPM Arthritis of left ankle (Primary Dx); Tendinitis of left ankle; Dermatophytosis of nail; Arthritis of right ankle; Diabetic mononeuropathy simplex ([facility] V24, [facility] V28); Type II diabetes mellitus with peripheral circulatory disorder ([facility] V24, [facility] V28); Pain in toe of left foot; Pain in toe of right foot from Last 3 Months Surgical History Surgery Date Site/Laterality Comments STEREOTACTIC CORE BIOPSY Social History Tobacco Use Types Packs/Day Years Used Date Smoking Tobacco: Never Assessed Comments No Sex and Gender Information Value Date Recorded Sex Assigned at Not on file Legal Sex Female 5:46 AM EST Gender Identity Not on file Sexual Orientation Not on file Obstetrics History Para Term AB IAB SAB Ectopic Multiple Livin g Live Births 2 Last Filed Vital Signs Vital Sign Reading Time Taken Comments Blood Pressure - - Pulse - - Temperature - - Respiratory Rate - - Oxygen Saturation - - Inhaled Oxygen Concentration - - Weight 83.5 kg (184 lb) 01/01/2025 7:25 AM EDT Height 149.9 cm (4' 11 ) 01/01/2025 7:25 AM EDT Body Mass Index 37.16 01/01/2025 7:25 AM EDT Plan of Treatment Upcoming Encounters Date Type Department Care Team (Late st Contact Info) Description 02/25/2025 8:45 AM EDT Office Visit Orthopedic Surgery [facility] [address] [phone] Harsha Burnham DPM [address] [phone] Health Maintenance Due Date Last Done Comments [...] Test (HGBA1C) 08/13/2024 Influenza Vaccine (#1) 2025 , 06/12/2023, 03/08/2022, Additional history exists Diabetes: Annual GFR (Glomerular Filtration Rate) 12/17/2025 12/17/2024 Hypertension/CHF/CAD Annual BMP Blood Test 12/17/2025 12/17/2024 Breast Cancer Screening 01/01/2027 01/02/20, 01/01/2024, 12/26/2022, Additional history exists DTaP,Tdap,and Td Vaccines (2 [...] Procedure Name Priority Date/Time Associated Diagnosis Comments MG MAMMO DIGITAL SCREENING W PARRISH BILAT Routine 01/01/2025 7:31 AM EDT Encounter for screening mammogram for breast cancer INJECTION TENDON OR LIGAMENT Routine 12/26/2024 9:15 AM EDT Arthritis of left ankle Tendinitis of left ankle PROTEIN AND CREATININE WITH RATIO, URINE Routine 12/17/2024 11:52 AM EDT Resistant hypertension METANEPHRINES, PLASMA FREE Routine 12/17/2024 11:45 AM EDT Resistant hypertension THYROID STIMULATING HORMONE WITH REFLEX TO FREE T4 AND FREE T3 Routine 12/17/2024 11:45 AM EDT Resistant hypertension CREATININE, SERUM Routine 12/17/2024 11: 45 AM EDT Resistant hypertension CALCIUM Routine 12/17/2024 11:45 AM EDT Resistant hypertension ELECTROLYTE PANEL Routine 12/17/2024 11: 45 AM EDT Resistant hypertension ALDOSTERONE, DIRECT RENIN RATIO Routine 12/17/2024 11:45 AM EDT Resistant hypertension PLASMA RENIN ACTIVITY Routine 12/17/2024 11:45 AM EDT Resistant hypertension CORTISOL Routine 12/17/2024 11:45 AM EDT Resistant hypertension BUN Routine 12/17/2024 11:45 AM EDT Resistant hypertension INJECTION TENDON OR LIGAMENT Routine 10/24/2024 9:45 AM EDT Tendinitis of left ankle CALEB DEXA AXIAL SKELETON Routine 11/10/2022 7:43 AM EDT Other specified disorders of bone density and structure, multiple sites from Last 3 Months or Most Recently Relevant to Health Maintenance Results * MG Mammo Digital Screening w Parrish bilat (01/01/2025 7:31 AM EDT) Anatomical Region Laterality Modality Breast Bilateral Mammography 01/01/2025 9:03 AM EDT Impressions 01/01/2025 9:14 AM EDT Benign. BI-RADS CATEGORY: 2 - BENIGN RECOMMENDATION: Screening bilateral mammogram is recommended in 1 year. Mammo Location: [facility], [address] [place] [address], [address], . -------- FINAL REPORT -------- Dictated By: García Patton Dictated Date: 01/01/2025 09:03 ET Assigned Physician: García Patton Reviewed and Electronically Signed By: García Patton Signed Date: 01/01/2025 09:14 ET Workstation ID: [id number] Transcribed By: Self Edit Transcribed Date: 01/01/2025 09:03 ET Narrative 01/01/2025 9:14 AM EDT CLINICAL: 69 years old, Female, routine annual exam. COMPARISON: Image 134. TECHNIQUE: Bilateral MLO and CC views were obtained digitally with 3-D mammogram (digital breast tomosynthesis). Computer-aided detection was utilized in evaluation of this exam (CAD). FINDINGS: There is no evidence of suspicious mass or architectural distortion. No worrisome calcifications are evident. There has been no significant change from prior exam(s). Atherosclerotic calcifications. BREAST DENSITY: B - There are scattered areas of fibroglandular density. Procedure Note García Patton MD - 01/01/2025 CLINICAL: 69 years old, Female, routine annual exam. COMPARISON: Image 134. TECHNIQUE: Bilateral MLO and CC views were obtaineddigitally with 3-D mammogram (digital breast tomosynthesis).Computer-aided detection was utilized in evaluation of this exam (CAD). FINDINGS: There is no evidence of suspicious mass or architectural distortion. Noworrisome calcifications are evident. There has been no significantchange from prior exam(s). Atherosclerotic calcifications. BREAST DENSITY: B - There are scattered areas of fibroglandular density. IMPRESSION: Benign. BI-RADS CATEGORY: 2 - BENIGN RECOMMENDATION: Screening bilateral mammogram is recommended in 1 year. Mammo Location: [facility], [address] [place] [address], [address], . -------- FINAL REPORT -------- Dictated By: García Patton Dictated Date: 01/01/2025 09:03 ET Assigned Physician: García Patton Reviewed and Electronically Signed By: García Patton Signed Date: 01/01/2025 09:14 ET Workstation ID: [id number] Transcribed By: Self Edit Transcribed Date: 01/01/2025 09:03 ET us Self Referral Sppl IMG BI PROCEDURES Final Resul t * Injection tendon or ligament (12/26/2024 9:15 AM EDT) Harsha Nolan DPM - 12/26/2024 9:15 AM EDT Harsha Burnham DPM 12/26/2024 12:51 PM Injection tendon or ligament Indications: pain Details: 25 G needle Medications: 0.5 mL lidocaine (PF) 1 %; 20 mg triamcinolone acetonide 40 mg/mL Informed Consent: Site: Foot ligament tendon Harsha Burnham DPM IN CLINIC/BEDSIDE ORDERAB LES Final Result * Protein and creatinine with ratio, urine (12/17/2024 11:52 AM EDT) Protein, Urine 11 mg/dL LAB CHEMISTRY METHOD 12/17/2024 3:30 PM EDT [facility] Prot/Creat, Ur 0.11 <=0.20 mg/mg creat LAB CHEMISTRY METHOD 12/17/2024 3:30 PM EDT [facility] Creatinine, Urine 102.0 mg/dL LAB CHEMISTRY METHOD 12/17/2024 3:30 PM EDT [facility] Urine Urine specimen obtained by clean catch procedure / Unknown Non-blood Collection / Unknown 12/17/2024 11:52 AM EDT 12/17/2024 1:25 PM EDT us Mundo Gray MD LAB URINE ORDERABLES Final Resul t Performing Organization Address [facility] de Phone Number [facility] [address] [place] [address], [place] [phone] * Thyroid stimulating hormone with reflex to free t4 and free t3 (12/17/2024 11:45 AM EDT) Pathologist [facility] TSH 1.74 0.40 - 4.00 mcIU/mL LAB CHEMISTRY METHOD 12/17/2024 4:25 PM EDT [facility] Blood Venous blood specimen / Unknown Venipuncture / Unknown 12/17/2024 11:45 AM EDT 12/17/2024 1:26 PM EDT us Mundo Gray MD LAB BLOOD ORDERABLES Final Resul t Performing Organization Address [facility] de Phone Number [facility] [address] [place] [address], [place] [phone] * (ABNORMAL) Plasma renin activity (12/17/2024 11:45 AM EDT) RENIN ACTIVITY, PLASMA 5.511(H) 0.167 - 5.380 ng/mL/hr 12/21/2024 3:05 PM EDT [facility] Blood Venous blood specimen / Unknown Venipuncture / Unknown 12/17/2024 11:45 AM EDT 12/17/2024 1:27 PM EDT Narrative [facility] - 12/21/2024 3:05 PM EDT Test(s) [id number]-[id number] Activity, Plasma was developed and its performance characteristics determined by [facility]. It has not been cleared or approved by the Food and Drug Administration. Performed at: 01 - [address] [place] [id number] Woods Manager: Bright Sidhu MD, Phone: [phone] us Mundo Gray MD LAB BLOOD ORDERABLES Final Resul t [facility] * Metanephrines, plasma free (12/17/2024 11:45 AM EDT) Metanephrines Free 41 < OR = 57 pg/mL 12/26/2024 10:37 PM EDT [facility] Comment: This test was developed and its analytical performance characteristics have been determined by [facility]. It has not been cleared or approved by the FDA. This assay has been validated pursuant to the CLIA regulations and is used for clinical purposes. Normetanephrine Free 108 < OR = 148 pg/mL 12/26/2024 10:37 PM EDT [facility] Comment: This test was developed and its analytical performance characteristics have been determined by [facility]. It has not been cleared or approved by the FDA. This assay has been validated pursuant to the CLIA regulations and is used for clinical purposes. Total, Free (MN + NMN) 149 < OR = 205 pg/mL 12/26/2024 10:37 PM EDT [facility] Comment: Elevations > 4-fold upper reference range: strongly suggestive of a pheochromocytoma(1). Elevations >1 - 4-fold upper reference range: significant but not diagnostic, may be due to medications or stress. Suggest running 24 hr urine fractionated metanephrines and serum Chromogranin A for confirmation. Reference: (1) Quinten Gibson et al, Plasma Chromogranin A or Urine Fractionated Metanephrines Follow-Up Testing Improves the Diagnostic Accuracy of Plasma Fractionated Metanephrines for Pheochromocytoma. The Journal of Clinical Endocrinology and Metabolism 93 (1),91-95, 2008. For additional information, please refer to http://education.Spotlight.fm.[employer]/faq/MetFractFree (This link is being provided for informational/educational purposes only.) This test was developed and its analytical performance characteristics have been determined by [facility]. It has not been cleared or approved by the FDA. This assay has been validated pursuant to the CLIA regulations and is used for clinical purposes. Test Performed at: [facility] [address] [place] [address] Sherman Nava MD, PhD, CASSANDRA Blood Venous blood specimen / Unknown Venipuncture / Unknown 12/17/2024 11:45 AM EDT 12/17/2024 1:27 PM EDT us Mundo Gray MD LAB BLOOD ORDERABLES Final Resul t Performing Organization Address City/[facility]/ZIP Co de Phone Number [facility] [address] [place] [address] * (ABNORMAL) Aldosterone, direct renin ratio (12/17/2024 11:45 AM EDT) Aldosterone 14.5 ng/dL 12/20/2024 8:03 PM EDT [facility] Comment: REFERENCE RANGE: Upright <= 39.2 ng/dL Supine <= 23.2 ng/dL Direct Renin 243.7(H) 3.1 - 57.1 pg/mL 12/20/2024 8:03 PM EDT [facility] Aldosterone/Dire ct Renin Ratio <0.1(L) 0.1 - 3.7 12/20/2024 8:03 PM EDT [facility] Comment: Test performed at [facility], [address] , [place] [address] Stacia Salas MD, PhD - Ed Teacher Blood Venous blood specimen / Unknown Venipuncture / Unknown 12/17/2024 11:45 AM EDT 12/17/2024 1:25 PM EDT us Mundo Gray MD LAB BLOOD ORDERABLES Final Resul t Performing Organization Address City/[facility]/ZIP Co de Phone Number [facility] [address] [place] [address] * (ABNORMAL) Creatinine (12/17/2024 11:45 AM EDT) Creatinine 1.15(H) 0.50 - 1.10 mg/dL LAB CHEMISTRY METHOD 12/17/2024 3:22 PM EDT [facility] eGFR 52(L) >=60 mL/min/1. 73m2 LAB CHEMISTRY METHOD 12/17/2024 3:22 PM EDT [facility] Comment:Calculation based on the Chronic Kidney Disease Epidemiology Collaboration (CKD-EPI) equation refit without adjustment for race. Blood Venous blood specimen / Unknown Venipuncture / Unknown 12/17/2024 11:45 AM EDT 12/17/2024 1:26 PM EDT us Mundo Gray MD LAB BLOOD ORDERABLES Final Resul t [facility] [address] [place] [address], [place] [phone] * BUN (12/17/2024 11:45 AM EDT) BUN 19 5 - 25 mg/dL LAB CHEMISTRY METHOD 12/17/2024 3:22 PM EDT [facility] Blood Venous blood specimen / Unknown Venipuncture / Unknown 12/17/2024 11:45 AM EDT 12/17/2024 1:26 PM EDT Mundo Gray MD LAB BLOOD ORDERABLES Final Resul t [facility] [address] [place] [address], [place] [phone] * Cortisol (12/17/2024 11:45 AM EDT) Cortisol 5.0 mcg/dL LAB CHEMISTRY METHOD 12/17/2024 4:25 PM EDT [facility] Blood Venous blood specimen / Unknown Venipuncture / Unknown 12/17/2024 11:45 AM EDT 12/17/2024 1:26 PM EDT Narrative [facility] - 12/17/2024 4:25 PM EDT CORTISOL REFERENCE RANGE 8 AM SPEC: 5.0-23.0 mcg/dL 4 PM SPEC: 3.0-16.0 mcg/dL 8 PM SPEC: <5.0 mcg/dL Mundo Gray MD LAB BLOOD ORDERABLES Final Resul t Performing Organization Address City/[facility]/ZIP Co de Phone Number [facility] [address] [place] [address], [place] [phone] * Calcium (12/17/2024 11:45 AM EDT) Calcium 9.2 8.5 - 10.5 mg/dL LAB CHEMISTRY METHOD 12/17/2024 3:22 PM EDT [facility] Blood Venous blood specimen / Unknown Venipuncture / Unknown 12/17/2024 11:45 AM EDT 12/17/2024 1:26 PM EDT Mundo Gray MD LAB BLOOD ORDERABLES Final Resul t Performing Organization Address City/[facility]/ZIP Co de Phone Number [facility] [address] [place] [address], [place] [phone] * Electrolyte panel (12/17/2024 11:45 AM EDT) Sodium 140 133 - 145 mmol/L LAB CHEMISTRY METHOD 12/17/2024 3:23 PM EDT [facility] Potassium 4.5 3.5 - 5.5 mmol/L LAB CHEMISTRY METHOD 12/17/2024 3:23 PM EDT [facility] Chloride 106 96 - 110 mmol/L LAB CHEMISTRY METHOD 12/17/2024 3:23 PM EDT [facility] CO2 29 21 - 32 mmol/L LAB CHEMISTRY METHOD 12/17/2024 3:23 PM EDT [facility] Anion Gap 5 3 - 11 LAB CHEMISTRY METHOD 12/17/2024 3:23 PM EDT [facility] Blood Venous blood specimen / Unknown Venipuncture / Unknown 12/17/2024 11:45 AM EDT 12/17/2024 1:26 PM EDT Mundo Gray MD LAB BLOOD ORDERABLES Final Resul t [facility] [address] [place] [address], * Injection tendon or ligament (10/24/2024 9:45 AM EDT) Harsha Nolan DPM - 10/24/2024 9:45 AM EDT Harsha Burnham DPM 10/24/2024 12:37 PM Injection tendon or ligament Indications: pain Details: 25 G needle Medications: 0.5 mL lidocaine (PF) 1 %; 20 mg triamcinolone acetonide 40 mg/mL Informed Consent: Site: Foot ligament tendon Harsha Burnham DPM IN CLINIC/BEDSIDE ORDERAB LES Final Result * CALEB DEXA AXIAL SKELETON (11/10/2022 7:43 AM EDT) Anatomical Region Laterality Modality Mammography 11/09/2022 12:3 3 PM EDT Narrative 11/10/2022 7:43 AM EDT [facility] Diagnostic Imaging Department [address] [place] [address] Patient: SHOAIB SHWA /Age/Sex: 1955 - 67 - F Unit#: [id number] Location/Status: SPDIMAM/REG CLI Mnemonic/Ordering Site: MAMDEXAAX/SPMAM Ordering [...] probability of hip fracture of 2.4%. Code 96216 Dictating Physician: LEATHA TRIPP MD Electronically Signed by: LEATHA TRIPP MD Dic Date/Time: 11/10/22 0741 Sign date/Time: 11/10/22 0743 Procedure Note Leatha Tripp MD - 06/27/2023 [facility] Diagnostic Imaging Department [address] [place] [address] Patient: SHOAIB SHAW /Age/Sex: 1955 - 67 - F Unit#: [id number] Location/Status: SPDIMAM/REG CLI Mnemonic/Ordering Site: MAMDEXAAX/SPMAM Ordering Physician: MICHELLE BOB MD Caleb Dexa Axial Skeleton - 11/09/220 Report Status:Signed HISTORY: The patient is a [...] density of the femurs bilaterally is 0.833 gm/jh0fhqyn is 83% of that of young normals [...] probability of hip fracture of 2.4%. Code 45615 Dictating Physician: LEATHA TRIPP MD Electronically Signed by: LEATHA TRIPP MD Dic Date/Time: 11/10/22740 Sign date/Time: 11/10/22742 Michelle Bob MD IMG BI PROCEDURES Final Result from Last 3 Months or Most Recently Relevant to Health Maintenance Insurance MEDICAID - [place] MEDICARE Care Teams Corn Detasseler Machine Operator Relationship Specialty Start Date End Date Michelle Bob MD [address] [place] [address] [address] [facility] [place] [address] PCP - General Internal Medicine 06/13/24
--- OUTSIDE RECORDS SUMMARY | 2025-01-09 11:23 | XMS_ITS | Clinical Summary ---
Author Organization [employer] Address [address] [place] [address] [address] [place] [address] Care Team Providers Care Contract Officer Name Role Phone Unavailable Primary Care Provider [...] patient's age to complete this topic [place] [address] [place] [address] STANDARD
[2025-01-09 11:50] LABS: Anion Gap 10 (12-20); Blood Urea Nitrogen 28 mg/dL (9-16); Calcium 9.2 mg/dL (8.4-10.2); Carbon Dioxide 28 mmol/L (22-29); Chloride 106 mmol/L (96-108); Estimated Glomerular Filt Rate 44; Potassium 4.4 mmol/L (3.3-5.1); Sodium 140 mmol/L (135-145)
[2025-01-09 12:15] LABS: Total Protein Urine Random < 7 mg/dL (<12)
[2025-01-13 16:38] LABS: Metanephrine, Free 56 pg/mL (<=57); Normetanephrines, Free 45 pg/mL (<=148); Total Metanephrine, Free 101 pg/mL (<=205)
[2025-01-16 18:33] LABS: Plasma Renin Activity 14.32 ng/mL/h (0.25-5.82)
== END 2025-01-09 09:58 | disposition home or self-care (01) ==
LOC: HO.LAB 09:57
PROVIDERS: PCP Internal Medicine; Visit Provider Internal Medicine Nephrology
DX: I10 Essential (primary) hypertension (principal); I1A.0 Resistant hypertension
CPT/HCPCS: 36415; 80051; 82088; 82310; 82533; 82565; 82570; 83835; 84156; 84244; 84443; 84520

== ENCOUNTER 2025-01-17 10:22 | Outpatient (REF) | payer MEDICARE, MEDICAID, SELFPAY ==
--- NOTE | ~2025-01-17 | US_ITS ---
US Renal with Doppler HISTORY: Resistant and persistent hypertension. COMPARISON: Numerous renal ultrasounds, most recently 06/10/2024. TECHNIQUE: Grayscale and spectral Doppler imaging of the bilateral kidneys and renal arteries was performed. FINDINGS: As per technologist note, significantly limited examination due to patient inability to hold breath and subsequent motion artifact. RENAL MEASUREMENTS: Right: 8.4 x 4.5 x 4.9 cm (Sag x AP x TV); there are cysts previously documented. Left: 8.0 x 5.5 x 5.4 cm (Sag x AP x TV); there are cysts previously documented. No hydronephrosis. Normal cortical echogenicity and thickness. No suspicious masses. Spectral Doppler analysis: Right Kidney: -Peak systolic velocity in the proximal right renal artery = 122 cm/s. Normal waveforms. -Peak systolic velocity in the mid right renal artery = 102 cm/s. Normal waveforms. -Peak systolic velocity in the distal right renal artery = 103 cm/s. Normal waveforms. -Patent right renal vein. -Upper pole interlobar artery resistive index of 0.79. -Midpole interlobar artery resistive index of 0.82. (Elevated) -Lower pole interlobar artery resistive index of 0.68. RAR right = 1.31 Left Kidney: -Peak systolic velocity in the proximal left renal artery = not well seen. -Peak systolic velocity in the mid left renal artery = 97 cm/s. Normal waveforms. -Peak systolic velocity in the distal left renal artery = 94 cm/s. Normal waveforms. -Patent left renal vein. -Upper pole interlobar artery resistive index of 0.85. (Elevated) -Mid pole interlobar artery resistive index of 0.68. -lower pole interlobar artery resistive index of 0.68. RAR left = 1.04 Aorta: -Peak systolic velocity = 93 cm/s. US/US renal doppler IMPRESSION: 1. Limited exam due to patient respiratory motion and inability to hold breath. 2. Borderline elevated resistive indices within the right mid pole interlobar artery, and within the left renal upper pole interlobar artery. Despite this, normal waveforms and otherwise normal resistive indices and velocities present. No elevated peak systolic velocities. Findings do not suggest significant renal artery stenosis. 2. There are bilateral simple renal cysts. The renal parenchyma is otherwise normal. Electronically signed by: Alejo Easley MD 01/17/2025 12:12 PM EDT RP
--- OUTSIDE RECORDS SUMMARY | 2025-01-17 11:03 | XMS_ITS | Clinical Summary ---
Author Organization [address] [place] [address] Address [address] [place] [address] Phone Care Team Providers Care Tailing Machine Operator Name Role Phone Michelle Bob MD Primary Care Provider [phone] Allergies Active Allergy Reactions Criticality Noted Date [...] EDT [facility] [address] [phone] Encounter for screening mammogram for breast cancer Discharge Disposition: Home or Self Care 12/26/2024 9:15 AM EDT Office Visit Orthopedic [facility] [place] [address] [phone] Harsha Burnham, DPM Arthritis of left ankle (Primary Dx); Tendinitis of left ankle; Dermatophytosis of nail; Diabetic mononeuropathy simplex (CMS/HCC V24, CMS/HCC V28); Pain in toe of right foot; Pain in toe of left foot; Type II diabetes mellitus with peripheral circulatory disorder ([facility] [place]24, [facility] V28) 10/24/2024 9:45 AM EDT Office Visit Orthopedic [facility] [address] [phone] Harsha Burnham DPM Arthritis of left ankle (Primary Dx); Tendinitis of left ankle; Dermatophytosis of nail; Arthritis of right ankle; Diabetic mononeuropathy simplex ([facility] V24, [facility] V28); Type II diabetes mellitus with peripheral circulatory disorder ([facility] [place]24, [facility] V28); Pain in toe of left foot; [...] 8:45 AM EDT Office Visit Orthopedic Surgery [facility] [address] [phone] Harsha Burnham DPM [address] [address] Health Maintenance Due Date Last Done Comments [...] year. Mammo Location: [facility], [address] [place] [address], [id number], . -------- FINAL REPORT -------- Dictated By: García Patton Dictated Date: 01/01/2025 09:03 ET Assigned Physician: García Patton Reviewed and Electronically Signed By: García Patton Signed Date: 01/01/2025 09:14 ET Workstation ID: [id number] Transcribed By: Self Edit Transcribed Date: 01/01/2025 [...] year. Mammo Location: [facility], [address] [place] [address], [id number], . -------- FINAL REPORT -------- Dictated By: García Patton Dictated Date: 01/01/2025 09:03 ET Assigned Physician: García Patton Reviewed and Electronically Signed By: García Patton Signed Date: 01/01/2025 09:14 ET Workstation ID: [id number] Transcribed By: Self Edit Transcribed Date: 01/01/2025 [...] LAB CHEMISTRY METHOD 12/17/2024 3:30 PM EDT [facility] Prot/Creat, Ur 0.11 <=0.20 mg/mg creat LAB CHEMISTRY METHOD 12/17/2024 3:30 PM EDT [facility] Creatinine, Urine 102.0 mg/dL LAB CHEMISTRY METHOD 12/17/2024 3:30 PM EDT [facility] Urine Urine specimen obtained by clean catch procedure / Unknown Non-blood Collection / Unknown 12/17/2024 11:52 AM EDT 12/17/2024 1:25 PM EDT us Mundo Gray MD LAB URINE ORDERABLES Final Resul t Performing Organization Address [facility] de Phone Number [facility] [address] [place] [address], [place] [phone] * Thyroid stimulating hormone with reflex to free t4 and free t3 (12/17/2024 11:45 AM EDT) Pathologist [facility] TSH 1.74 0.40 - 4.00 mcIU/mL LAB CHEMISTRY METHOD 12/17/2024 4:25 PM EDT [facility] Blood Venous blood specimen / Unknown Venipuncture / Unknown 12/17/2024 11:45 AM EDT 12/17/2024 1:26 PM EDT us Mundo Gray MD LAB BLOOD ORDERABLES Final Resul t Performing Organization Address [facility] de Phone Number [facility] [address] [place] [address], [place] [phone] * (ABNORMAL) Plasma renin activity (12/17/2024 11:45 AM EDT) RENIN ACTIVITY, PLASMA 5.511(H) 0.167 - 5.380 ng/mL/hr 12/21/2024 3:05 PM EDT [facility] Blood Venous blood specimen / Unknown Venipuncture / Unknown 12/17/2024 11:45 AM EDT 12/17/2024 1:27 PM EDT Narrative [facility] - 12/21/2024 3:05 PM EDT Test(s) 855925-[id number] Activity, Plasma was developed and its performance characteristics determined by [facility]. It has not been cleared or approved by the Food and Drug Administration. Performed at: 01 - [address] [place] [id number] Tool Lapper Hand: Bright Sidhu MD, Phone: [phone] us Mundo Gray MD LAB BLOOD ORDERABLES Final Resul t [facility] * Metanephrines, plasma free (12/17/2024 11:45 AM EDT) Metanephrines Free 41 < OR = 57 pg/mL 12/26/2024 10:37 PM EDT [facility] Comment: This test was developed and its analytical performance characteristics have been determined by [facility]. It has not been cleared or approved by the FDA. This assay has been validated pursuant to the CLIA regulations and is used for clinical purposes. Normetanephrine Free 108 < OR = 148 pg/mL 12/26/2024 10:37 PM EDT [facility] Comment: This test was developed and its analytical performance characteristics have been determined by [facility]. It has not been cleared or approved [...] 2008. For additional information, please refer to http://education.Expert Planet.PositiveID/faq/MetFractFree (This link is being provided for informational/educational purposes only.) This test was developed and its analytical performance characteristics have been determined by [facility]. It has not been cleared or approved by the FDA. This assay has been validated pursuant to the CLIA regulations and is used for clinical purposes. Test Performed at: [facility] [address] [place] [address] Sherman Nava MD, PhD, CASSANDRA Blood Venous blood specimen / Unknown Venipuncture / Unknown 12/17/2024 11:45 AM EDT 12/17/2024 1:27 PM EDT us Mundo Gray MD LAB BLOOD ORDERABLES Final Resul t Performing Organization Address City/[facility]/ZIP Co de Phone Number [facility] [address] [place] [address] * (ABNORMAL) Aldosterone, direct renin ratio (12/17/2024 11:45 AM EDT) Aldosterone 14.5 ng/dL 12/20/2024 8:03 PM EDT [facility] Comment: REFERENCE RANGE: Upright <= 39.2 ng/dL Supine <= 23.2 ng/dL Direct Renin 243.7(H) 3.1 - 57.1 pg/mL 12/20/2024 8:03 PM EDT [facility] Aldosterone/Dire ct Renin Ratio <0.1(L) 0.1 - 3.7 12/20/2024 8:03 PM EDT [facility] Comment: Test performed at [facility], [address] , [place] [address] Stacia Salas MD, PhD - [employer] Blood Venous blood specimen / Unknown Venipuncture / Unknown 12/17/2024 11:45 AM EDT 12/17/2024 1:25 PM EDT us Mundo Gray MD LAB BLOOD ORDERABLES Final Resul t Performing Organization Address City/[facility]/ZIP Co de Phone Number [facility] [address] [place] [address] * (ABNORMAL) Creatinine (12/17/2024 11:45 AM EDT) Creatinine 1.15(H) 0.50 - 1.10 mg/dL LAB CHEMISTRY METHOD 12/17/2024 3:22 PM EDT [facility] eGFR 52(L) >=60 mL/min/1. 73m2 LAB CHEMISTRY METHOD 12/17/2024 3:22 PM EDT [facility] Comment:Calculation based on the Chronic Kidney Disease Epidemiology Collaboration (CKD-EPI) equation refit without adjustment for race. Blood Venous blood specimen / Unknown Venipuncture / Unknown 12/17/2024 11:45 AM EDT 12/17/2024 1:26 PM EDT us Mundo Gray MD LAB BLOOD ORDERABLES Final Resul t [facility] [address] [place] [address], [place] [phone] * BUN (12/17/2024 11:45 AM EDT) BUN 19 5 - 25 mg/dL LAB CHEMISTRY METHOD 12/17/2024 3:22 PM EDT [facility] Blood Venous blood specimen / Unknown Venipuncture / Unknown 12/17/2024 11:45 AM EDT 12/17/2024 1:26 PM EDT Mundo Gray MD LAB BLOOD ORDERABLES Final Resul t [facility] [address] [place] [address], [place] [phone] * Cortisol (12/17/2024 11:45 AM EDT) Cortisol 5.0 mcg/dL LAB CHEMISTRY METHOD 12/17/2024 4:25 PM EDT [facility] Blood Venous blood specimen / Unknown Venipuncture / Unknown 12/17/2024 11:45 AM EDT 12/17/2024 1:26 PM EDT Narrative [facility] - 12/17/2024 4:25 PM EDT CORTISOL REFERENCE RANGE 8 AM SPEC: 5.0-23.0 mcg/dL 4 PM SPEC: 3.0-16.0 mcg/dL 8 PM SPEC: <5.0 mcg/dL Mundo Gray MD LAB BLOOD ORDERABLES Final Resul t Performing Organization Address City/[facility]/ZIP Co de Phone Number [facility] [address] [place] [address], [place] [phone] * Calcium (12/17/2024 11:45 AM EDT) Calcium 9.2 8.5 - 10.5 mg/dL LAB CHEMISTRY METHOD 12/17/2024 3:22 PM EDT [facility] Blood Venous blood specimen / Unknown Venipuncture / Unknown 12/17/2024 11:45 AM EDT 12/17/2024 1:26 PM EDT Mundo Gray MD LAB BLOOD ORDERABLES Final Resul t Performing Organization Address City/[facility]/ZIP Co de Phone Number [facility] [address] [place] [address], [place] [phone] * Electrolyte panel (12/17/2024 11:45 AM EDT) Sodium 140 133 - 145 mmol/L LAB CHEMISTRY METHOD 12/17/2024 3:23 PM EDT [facility] Potassium 4.5 3.5 - 5.5 mmol/L LAB CHEMISTRY METHOD 12/17/2024 3:23 PM EDT [facility] Chloride 106 96 - 110 mmol/L LAB CHEMISTRY METHOD 12/17/2024 3:23 PM EDT [facility] CO2 29 21 - 32 mmol/L LAB CHEMISTRY METHOD 12/17/2024 3:23 PM EDT [facility] Anion Gap 5 3 - 11 LAB CHEMISTRY METHOD 12/17/2024 3:23 PM EDT [facility] Blood Venous blood specimen / Unknown Venipuncture / Unknown 12/17/2024 11:45 AM EDT 12/17/2024 1:26 PM EDT Mundo Gray MD LAB BLOOD ORDERABLES Final Resul t [facility]) [facility] [address] [place] [address], * Injection tendon or ligament (10/24/2024 9:45 [...] PM EDT Narrative 11/10/2022 7:43 AM EDT [facility] Diagnostic Imaging Department [address] [place] [address] Patient: SHOAIB SHAW /Age/Sex: 1955 - 67 - F Unit#: [id number] Location/Status: SPDIMAM/REG CLI Mnemonic/Ordering Site: MAMDEXAAX/SPMAM Ordering [...] probability of hip fracture of 2.4%. Code 34707 Dictating Physician: LEATHA TRIPP MD Electronically Signed by: LEATHA TRIPP MD Dic Date/Time: 11/10/22 0741 Sign date/Time: 11/10/22 0743 Procedure Note Leatha Tripp MD - 06/27/2023 [facility] Diagnostic Imaging Department [address] [place] [address] Patient: SHOAIB SHAW /Age/Sex: 1955 - 67 - F Unit#: [id number] Location/Status: SPDIMAM/REG CLI Mnemonic/Ordering Site: MAMDEXAAX/SPMAM Ordering [...] density of the femurs bilaterally is 0.833 gm/pz1qmjbc is 83% of that of young normals [...] probability of hip fracture of 2.4%. Code 51726 Dictating Physician: LEATHA TRIPP MD Electronically Signed by: LEATHA TRIPP MD Dic Date/Time: 11/10/22740 Sign date/Time: 11/10/22742 Michelle Bob MD IMG BI PROCEDURES Final Result from Last 3 Months or Most Recently Relevant to Health Maintenance Insurance MEDICAID - [place] MEDICARE Care Teams Tailing Machine Operator Relationship Specialty Start Date End Date Michelle Bob MD [address] [place] [address] [address] [facility] [place] [address] PCP - General Internal Medicine 06/13/24
--- OUTSIDE RECORDS SUMMARY | 2025-01-17 11:03 | XMS_ITS | Clinical Summary ---
Author Organization [employer] Address [address] [place] [address] [address] [place] [address] Care Team Providers Care Mcat Instructor Name Role Phone Unavailable Primary Care Provider [...] patient's age to complete this topic [place] [address] [address] STANDARD
== END 2025-01-17 10:23 | disposition home or self-care (01) ==
LOC: HO.US 10:22
PROVIDERS: PCP Internal Medicine; Visit Provider Internal Medicine Nephrology
DX: I10 Essential (primary) hypertension (principal)
CPT/HCPCS: 93975

== ENCOUNTER → 2025-01-17 10:26 | Outpatient (BNV) | payer MEDICARE, MEDICAID, SELFPAY | PROVIDERS: PCP Internal Medicine; Visit Provider Radiology Diagnostic Radiology | DX: I10 Essential (primary) hypertension (principal); N28.1 Cyst of kidney, acquired | CPT/HCPCS: 93975 ==

== ENCOUNTER 2025-01-23 10:30 | Outpatient (AMB) | payer MEDICARE, MEDICAID, SELFPAY ==
--- NOTE | 2025-01-23 10:47 | HO.NEPHOV_ITS ---
Vital Signs 01/23/25 10:50 Height 4 ft 11 in Weight 195 lb 2 oz BMI 39.4 BP 130/80 Blood Pressure Location Lt brachial Position Sitting Pulse 50 Pulse Source Pulse Oximeter Pulse Oximetry (%) 99 Oxygen Delivery Method Room Air Intake Visit Reasons: 1mnth follow up-LVM Boring Machine Operator Production Required: Yes Boring Machine Operator Production Language: Stacker Tender Services: Boring Machine Operator Production Offered & Declined ([facility] Boring Machine Operator Production services refused. Patient accompanied by daughter.) Accompanied by: Daughter Allergies felodipine Adverse Reaction (Intermediate, Verified 01/23/25 10:49) leg swelling ibuprofen (From Motrin) Adverse Reaction (Intermediate, Verified 01/23/25 10:49) GI UPSET HPI Comments Details: Bhavana was seen for follow up of CKD and resistant hypertension. She is 69 years of age who has been hypertensive for a long time. She is on multiple antihypertensive medications but still her BP is not well controlled. She claims to be compliant with her medications. She is not a diabetic and denies CAD, CVA, CHF , retinopathy or proteinuria. She has PAD but no H/O AUSTEN, hypokalemia, uncontrolled hypothyroidism, hypercalcemia, RANI. She denies edema, chest pain, SOB, orthostatic symptoms, hematuria, palpitations, syncope or flushing. She does not take any excess NSAID's, herbs or has any H/O drug use. Her last serum creatinine has been stable [facility] Medical History (Updated 12/09/24 @ 13:46 by Mundo Gray MD) Bilateral cataracts Irritable bowel syndrome with both constipation and diarrhea Renal cyst Asthma exacerbation Annual physical exam Renal calculi Abscess of nipple, left On beta saniya at home History of anemia IBS (irritable bowel syndrome) GERD (gastroesophageal reflux disease) History of memory loss Elevated cholesterol HTN (hypertension) Asthma Colon cancer screening Seborrheic keratosis Knee pain, right Gastric ulcer Type 2 diabetes mellitus with hyperglycemia Tobacco abuse Obesity (BMI 30-39.9) Otitis externa Osteopenia Illiterate Osteoarthritis Surgical History Hx of right cataract extraction (11/25/24) History of arthroscopy of left knee Hx of section History of hysterectomy H/O colonoscopy with polypectomy History of esophagogastroduodenoscopy (EGD) H/O cystoscopy H/O oophorectomy History of total knee replacement Family History Father Prostate cancer Mother Brain tumor Social History Household Members: None Housing: Apartment Are you a primary reproductive healthcare assistant to a significant other at home: No Do you presently have visiting nurse or other home services: No Alcohol intake: current Alcohol intake frequency: does not drink Comment: once q 3 month 1 drinks Patient Tobacco Use Status: Current everyday Tobacco user Tobacco use type: Cigarette Cigarette Packs Per Day: 0.5 Cigarettes Per Day: 10.0 Years Smoked: 2-3 cigarette a day e-Cigarette/Vaping Use: Never Used Second Hand Smoke Exposure: No service: No Current occupational status: disabled Cognitive needs: Yes Hearing needs: No Vision needs: No Review of Systems Const All systems reviewed & are unremarkable except as noted in HPI and below Physical Exam Vital Signs: Last Vital Signs Pulse 50 01/23/25 10:50 BP 130/80 01/23/25 10:50 Pulse Ox 99 01/23/25 10:50 Oxygen Delivery Method Room Air 01/23/25 10:50 BMI result Body Mass Index 39.4 Const General: comfortable and no acute distress Orientation/consciousness: patient oriented x3 HEENT Head: Yes normocephalic Mouth: Normal oral and palatal mucosa present Eyes EOM: EOMs intact bilaterally Neck Neck: Yes supple Resp Auscultation: clear to auscultation bilaterally Cardio Jugular venous distension: no JVD Rate: regular rate GI Palpation (GI): Soft to palpation Auscultation: normal bowel sounds General: Yes no CVA tenderness Back/Spine/Pelvis Back: no CVA tenderness Skin General skin exam: no rashes or lesions noted Neuro General: patient oriented x3 and moves all extremities Extrem General: Yes no pedal edema Results Reviewed Nephrology Results: Sodium, (135-145) 140 mmol/L 01/09/25 Potassium, (3.3-5.1) 4.4 mmol/L 01/09/25 Chloride, (96-108) 106 mmol/L 01/09/25 Carbon Dioxide, (22-29) 28 mmol/L 01/09/25 BUN, (9-16) 28 mg/dL H 01/09/25 Creatinine, (0.5-1.4) 1.22 mg/dL 01/09/25 Calcium, (8.4-10.2) 9.2 mg/dL 01/09/25 Urine Creatinine 48.86 mg/dL 01/09/25 Protein/Creatinin Ratio TNP 01/09/25 Renal US 01/17/25 Assessment & Plan Assessment & Plan (1) HTN (hypertension), benign: Code(s): I10 - Essential (primary) hypertension Category: Medical (2) CKD stage 3a, GFR 45-59 ml/min: Code(s): N18.31 - Chronic kidney disease, stage 3a Category: Medical Plan She claims to be compliant with her medications.She has PAD but no H/O AUSTEN, hypokalemia, uncontrolled hypothyroidism, hypercalcemia, RANI. She should be on low sodium diet and continue lifestyle modifications. Doppler of renal arteries reviewed . She should continue Spironolactone 25 mg. She is aware of common side effects including possibility of hyperkalemia given she is on ACEI. She should avoid NSAID's and maintain good hydration. Her last serum creatinine has been stable . She has CKD likely from vascular disease and long standing hypertension. She will be a great candidate for SGLT2i in the future. Further management is pending evolving data Orders: Orders Creatinine 3 Months I10 - Essential (primary) hypertension, N18.31 - Chronic kidney disease, stage 3a Blood Urea Nitrogen 3 Months I10 - Essential (primary) hypertension, N18.31 - Chronic kidney disease, stage 3a Electrolytes 3 Months I10 - Essential (primary) hypertension, N18.31 - Chronic kidney disease, stage 3a Coding Level of Care Code Est Pt Level 4 (97906) Diagnoses HTN (hypertension), benign I10 CKD stage 3a, GFR 45-59 ml/min N18.31
[2025-01-23 10:50] VITALS: BP 130/80; PULSE 50; O2SAT 99; BMI 39.4
--- OUTSIDE RECORDS SUMMARY | 2025-01-23 11:53 | XMS_ITS | Clinical Summary ---
Author Organization [facility] Address [address] [place] [address] [address] [place] [address] Care Team Providers Care Granite Fabricator Name Role Phone Unavailable Primary Care Provider [...] of 2) 08/11/2005 COVID-19 Vaccine (5 - 2024- season) 2025 07/25/2022, 06/10/2021, 10/08/2020, Additional history exists Influenza [...] patient's age to complete this topic [place] [address] [address] STANDARD
--- OUTSIDE RECORDS SUMMARY | 2025-01-23 11:53 | XMS_ITS | Clinical Summary ---
Author Organization [address] [place] [address] Address [address] [place] [address] Phone Care Team Providers Care Psychological Operations Officer Name Role Phone Michelle Bob MD Primary Care Provider [phone] Allergies Active Allergy Reactions Criticality Noted Date [...] EDT [facility] [address] [phone] Encounter for screening mammogram for breast cancer Discharge Disposition: Home or Self Care 12/26/2024 9:15 AM EDT Office Visit [facility] [place] [address] [phone] Harsha Burnham, DPM Arthritis of left ankle (Primary Dx); Tendinitis of left ankle; Dermatophytosis of nail; Diabetic mononeuropathy simplex (CMS/HCC V24, CMS/HCC V28); Pain in toe of right foot; Pain in toe of left foot; Type II diabetes mellitus with peripheral circulatory disorder ([facility] V24, [facility] V28) 10/24/2024 9:45 AM EDT Office Visit [facility] [address] [phone] Harsha Burnham DPM Arthritis of left ankle (Primary Dx); Tendinitis of left ankle; Dermatophytosis of nail; Arthritis of right ankle; Diabetic mononeuropathy simplex ([facility] V24, [facility] V28); Type II diabetes mellitus with peripheral circulatory disorder ([facility] V24, [facility] V28); Pain in toe of left foot; [...] 8:45 AM EDT Office Visit Orthopedic Surgery [facility] [address] [phone] Harsha Burnham DPM [address] [phone] Health Maintenance Due Date Last Done Comments [...] 04/24/2022 Social Influencers of Health Screening 04/24/2022 Depression Screening 05/22/2024 Diabetes: Annual Urine Albumin-Creatinine Ratio (uACR) 08/13/2024 Diabetes: Blood Sugar Control Test (HGBA1C) 08/13/2024 COVID-19 Vaccine ( season) 2025 07/25/2022, 05/31/2021, 10/08/2020, Additional history exists Influenza Vaccine (#1) 2025 , 06/12/2023, 03/08/2022, [...] year. Mammo Location: [facility], [address] [place] [address], [address], . -------- FINAL REPORT -------- Dictated By: García Patton Dictated Date: 01/01/2025 09:03 ET Assigned Physician: García Patton Reviewed and Electronically Signed By: García Patton Signed Date: 01/01/2025 09:14 ET Workstation ID: [id number] Transcribed By: Self Edit Transcribed Date: 01/01/2025 [...] year. Mammo Location: [facility], [address] [place] [address], [address], . -------- FINAL REPORT -------- Dictated By: García Patton Dictated Date: 01/01/2025 09:03 ET Assigned Physician: García Patton Reviewed and Electronically Signed By: García Patton Signed Date: 01/01/2025 09:14 ET Workstation ID: [id number] Transcribed By: Self Edit Transcribed Date: 01/01/2025 [...] ORDERABLES Final Resul t Performing Organization Address [facility] Co de Phone Number [facility] [address] [place] [address], [place] [phone] * Thyroid stimulating hormone with reflex to free t4 and free t3 (12/17/2024 11:45 AM EDT) TSH 1.74 0.40 - 4.00 mcIU/mL LAB CHEMISTRY METHOD 12/17/2024 4:25 PM EDT [facility] Blood Venous blood specimen / Unknown Venipuncture / Unknown 12/17/2024 11:45 AM EDT 12/17/2024 1:26 PM EDT us Mundo Gray MD LAB BLOOD ORDERABLES Final Resul t Performing Organization Address [facility] de Phone Number [facility] [address] [place] [address], [place] [phone] * (ABNORMAL) Plasma renin activity (12/17/2024 11:45 AM EDT) RENIN ACTIVITY, PLASMA 5.511(H) 0.167 - 5.380 ng/mL/hr 12/21/2024 3:05 PM EDT [facility] Blood Venous blood specimen / Unknown Venipuncture / Unknown 12/17/2024 11:45 AM EDT 12/17/2024 1:27 PM EDT Narrative [facility] - 12/21/2024 3:05 PM EDT Test(s) 198201-Hdmec Activity, Plasma was developed and its performance characteristics determined by [facility]. It has not been cleared or approved by the Food and Drug Administration. Performed at: 01 - [facility] [address] [id number] Cuff Folder: Bright Sidhu MD, Phone: [phone] us Mundo Gray MD LAB BLOOD ORDERABLES Final Resul t [facility] * Metanephrines, plasma free (12/17/2024 11:45 AM EDT) Metanephrines Free 41 < OR = 57 pg/mL 12/26/2024 10:37 PM EDT [facility] Comment: This test was developed and its analytical performance characteristics have been determined by [facility]. It has not been cleared or approved by the FDA. This assay has been validated pursuant to the CLIA regulations and is used for clinical purposes. Normetanephrine Free 108 < OR = 148 pg/mL 12/26/2024 10:37 PM EDT [facility] Comment: This test was developed and its analytical performance characteristics have been determined by [facility]. It has not been cleared or approved [...] 2008. For additional information, please refer to http://education.CreateTrips/faq/MetFractFree (This link is being provided for informational/educational purposes only.) This test was developed and its analytical performance characteristics have been determined by [facility]. It has not been cleared or approved by the FDA. This assay has been validated pursuant to the CLIA regulations and is used for clinical purposes. Test Performed at: [facility] [address] [place] [address] Sherman Nava MD, PhD, CASSANDRA Blood Venous blood specimen / Unknown Venipuncture / Unknown 12/17/2024 11:45 AM EDT 12/17/2024 1:27 PM EDT us Mundo Gray MD LAB BLOOD ORDERABLES Final Resul t Performing Organization Address City/[facility]/ZIP Co de Phone Number [facility] [address] [place] [address] * (ABNORMAL) Aldosterone, direct renin ratio (12/17/2024 11:45 AM EDT) Aldosterone 14.5 ng/dL 12/20/2024 8:[address] [facility] Comment: REFERENCE RANGE: Upright <= 39.2 ng/dL Supine <= 23.2 ng/dL Direct Renin 243.7(H) 3.1 - 57.1 pg/mL 12/20/2024 8:[address] [facility] Aldosterone/Dire ct Renin Ratio <0.1(L) 0.1 - 3.7 12/20/2024 8:[address] [facility] Comment: Test performed at [facility], [address] [place] [address] Stacia Salas MD, PhD - Computer Education Professor Blood Venous blood specimen / Unknown Venipuncture / Unknown 12/17/2024 11:45 AM EDT 12/17/2024 1:25 PM EDT us Mundo Gray MD LAB BLOOD ORDERABLES Final Resul t Performing Organization Address City/[facility]/ZIP Co de Phone Number [facility] [address] [place] [address] * (ABNORMAL) Creatinine (12/17/2024 11:45 AM EDT) [...] ORDERABLES Final Resul t Performing Organization Address City/[facility]/ZIP Co de Phone Number [facility] [address] [place] [address], [place] [phone] * BUN (12/17/2024 11:45 AM EDT) BUN 19 5 - 25 mg/dL LAB CHEMISTRY METHOD 12/17/2024 3:22 PM EDT [facility] Blood Venous blood specimen / Unknown Venipuncture / Unknown 12/17/2024 11:45 AM EDT 12/17/2024 1:26 PM EDT Mundo Gray MD LAB BLOOD ORDERABLES Final Resul t [facility] [address] [place] [address], [place] [phone] * Cortisol (12/17/2024 11:45 AM EDT) Cortisol [...] Resul t [facility] [address] [place] [address], [place] [phone] * Calcium (12/17/2024 11:45 AM EDT) Calcium 9.2 8.5 - 10.5 mg/dL LAB CHEMISTRY METHOD 12/17/2024 3:22 PM EDT [facility] Blood Venous blood specimen / Unknown Venipuncture / Unknown 12/17/2024 11:45 AM EDT 12/17/2024 1:26 PM EDT Mundo Gray MD LAB BLOOD ORDERABLES Final Resul t [facility] [address] [place] [address], [place] [phone] * Electrolyte panel (12/17/2024 11:45 AM EDT) [...] Resul t [facility] [address] [place] [address], * Injection tendon or ligament (10/24/2024 9:45 [...] PM EDT Narrative 11/10/2022 7:43 AM EDT [facility] Diagnostic Imaging Department [address] [place] [address] Patient: SHOAIB SHAW /Age/Sex: 1955 - 67 - F Unit#: [id number] Location/Status: SPDIMAM/REG CLI Mnemonic/Ordering Site: MAMDEXAAX/SPMAM Ordering Physician: MICHELLE BOB MD Caleb Dexa Axial Skeleton - 11/09/22 - 3150 Report Status:Signed HISTORY: The patient is a [...] probability of hip fracture of 2.4%. Code 68915 Dictating Physician: LEATHA TRIPP MD Electronically Signed by: LEATHA TRIPP MD Dic Date/Time: 11/10/2241 Sign date/Time: 11/10/22 0743 Procedure Note Leatha Tripp MD - 06/27/2023 [facility] Diagnostic Imaging Department [address] [place] [address] Patient: SHOAIB SHAW /Age/Sex: 1955 - 67 - F Unit#: [id number] Location/Status: SPDIMAM/REG CLI Mnemonic/Ordering Site: MAMDEXAAX/SPMAM Ordering Physician: MICHELLE BOB MD Caleb Dexa Axial Skeleton - 11/09/22 - 0 Report Status:Signed HISTORY: The patient is a [...] density of the femurs bilaterally is 0.833 gm/[id number] is 83% of that of young normals [...] probability of hip fracture of 2.4%. Code 89389 Dictating Physician: LEATHA TRIPP MD Electronically Signed by: LEATHA TRIPP MD Dic Date/Time: 11/10/22740 Sign date/Time: 11/10/22742 Michelle Bob MD IMG BI PROCEDURES Final Result from Last 3 Months or Most Recently Relevant to Health Maintenance Insurance MEDICAID - [place] MEDICARE Care Teams Psychological Operations Officer Relationship Specialty Start Date End Date Michelle Bob MD [address] [place] [address] [address] [facility] [place] [address] PCP - General Internal Medicine 06/13/24
== END 2025-01-23 11:06 | disposition home or self-care (01) ==
LOC: HO.HKAS 10:31
PROVIDERS: PCP Internal Medicine; Visit Provider Internal Medicine Nephrology
DX: I10 Essential (primary) hypertension (principal); N18.31 Chronic kidney disease, stage 3a
CPT/HCPCS: 99214

== ENCOUNTER → 2025-01-23 10:30 | Outpatient (BNVA) | payer MEDICARE, MEDICAID, SELFPAY | PROVIDERS: PCP Internal Medicine; Visit Provider Internal Medicine Nephrology | DX: I12.9 Hypertensive chronic kidney disease with stage 1 through stage 4 chronic kidney disease, or unspecified chronic kidney disease (principal); N18.31 Chronic kidney disease, stage 3a | CPT/HCPCS: 99212 ==

== ENCOUNTER 2025-02-10 14:21 | Outpatient (AMB) | payer MEDICARE, MEDICAID, SELFPAY ==
--- NOTE | 2025-02-10 15:16 | A.OFFVIS_ITS ---
Intake Vital Signs 02/10/25 15:17 Height 4 ft 11 in Weight 191 lb 8 oz BMI 38.7 BP 118/90 H Blood Pressure Location Lt brachial Position Sitting Pulse 60 Pulse Source Pulse Oximeter Temp 97.3 F Temp Source Temporal Artery Scan Pulse Oximetry (%) 100 Oxygen Delivery Method Room Air Intake Visit Reasons: [facility] G0439 Accompanied by: Daughter Allergies felodipine Adverse Reaction (Intermediate, Verified 02/10/25 15:27) leg swelling ibuprofen (From Motrin) Adverse Reaction (Intermediate, Verified 02/10/25 15:27) GI UPSET Medication List - Last Reconciled 02/10/25 by Michelle Sanchez MD albuterol sulfate 2.5 mg (3 mL) inhalation Q4-6H PRN 90 days albuterol sulfate 90 mcg/actuation 2 inhalations PO Q4H PRN alendronate 70 mg PO QWEEK atorvastatin 10 mg PO DAILY blood pressure monitor (Blood Pressure Kit) As directed cane As directed ciclesonide 80 mcg/actuation (Alvesco) 1 puff inhalation BID clonidine HCl 0.1 mg PO TID 90 days lili.stocking,knee,reg,xlrg As directed 20-30 mm HG famotidine 40 mg PO BID fluticasone propionate 50 mcg/actuation (Flonase Allergy Relief) 1 spray intranasal DAILY hydrochlorothiazide 25 mg PO DAILY lisinopril 40 mg PO DAILY metoprolol succinate ER 150 mg (1.5 x 100 mg) PO DAILY 90 days [nebulizer As directed] sennosides (senna) 17.2 mg (2 x 8.6 mg) PO BEDTIME 90 days Shower Chair As directed spironolactone 25 mg PO DAILY 90 days HPI [facility] G0439 HPI Details [facility] of care Dr. [place] nephrology Podiatry Dr. Tej Estrada Ophthalmology urology [facility] [place] Erazo dermatology [facility] Medical History (Updated 02/10/25 @ 15:49 by Michelle Sanchez MD) Osteopenia Bilateral cataracts Irritable bowel syndrome with both constipation and diarrhea Renal cyst Asthma exacerbation Annual physical exam Renal calculi Abscess of nipple, left On beta saniya at home History of anemia IBS (irritable bowel syndrome) GERD (gastroesophageal reflux disease) History of memory loss Elevated cholesterol HTN (hypertension) Asthma Colon cancer screening Seborrheic keratosis Knee pain, right Gastric ulcer Type 2 diabetes mellitus with hyperglycemia Tobacco abuse Obesity (BMI 30-39.9) Otitis externa Illiterate Osteoarthritis Surgical History Hx of right cataract extraction (11/25/24) History of arthroscopy of left knee Hx of section History of hysterectomy H/O colonoscopy with polypectomy History of esophagogastroduodenoscopy (EGD) H/O cystoscopy H/O oophorectomy History of total knee replacement Family History Father Prostate cancer Mother Brain tumor Social History Household Members: None Housing: Apartment Are you a primary assisted living care manager to a significant other at home: No Do you presently have visiting nurse or other home services: No Alcohol intake: current Alcohol intake frequency: does not drink Comment: once q 3 month 1 drinks Patient Tobacco Use Status: Current everyday Tobacco user Tobacco use type: Cigarette Cigarette Packs Per Day: 0.5 Cigarettes Per Day: 10.0 Years Smoked: 2-3 cigarette a day e-Cigarette/Vaping Use: Never Used Second Hand Smoke Exposure: No service: No Current occupational status: disabled Cognitive needs: Yes Hearing needs: No Vision needs: No Questionnaire Medicare Wellness Checkup [age] What gender do you identify with?: female During the past 4 weeks, how much have you been bothered by emotional problems such as feeling anxious, depressed, irritable, sad or downhearted, and blue?: not at all During the past 4 weeks, has your physical & emotional health limited your social activities with family, friends, neighbors, or groups?: not at all During the past 4 weeks, how much bodily pain have you generally had?: no pain During the past 4 weeks, was someone available to help you if you needed & w anted help?: no, not at all During the past 4 weeks, what was the hardest physical activity you could do for at least 2 minutes?: moderate Can you get to places out of walking distance without help? (For eg., can you travel alone on buses, taxis or drive your car?): Yes Can you go shopping for groceries or clothes without someone's help?: Yes Can you prepare your own meals?: Yes Can you do your housework without help?: Yes Because of any health problems, do you need the help of another person with your personal care needs such as eating, bathing, dressing or getting around the house?: No Can you handle your own money without help?: Yes During the past 4 weeks, how would you rate your health in general?: good During the past 4 weeks how have things been going for you?: pretty well Are you having difficulties driving your car?: not applicable, I don't use a car Do you always fasten your seat belt when you are in a car?: yes, usually During past 4 weeks, have you been bothered by the following: never: Sexual problems?, Trouble eating well?, Teeth or denture problems? and Problems using the telephone? and sometimes: Falling or dizzy when standing up and Tiredness or fatigue? Have you fallen 2 or more times in the past year?: No Are you afraid of falling?: Yes Are you a smoker?: yes, but I'm not ready to quit During the past 4 weeks, how many drinks of wine, beer, or other alcoholic beverages did you have?: no alcohol at all Do you exercise for about 20 minutes 3 or more times a week?: yes, some of the time Have you been given information to help with the following?: no: Hazards in your house that might hurt you? and no: Keeping track of your medications? How often do you have trouble taking medicines the way you have been told to take them?: I always take medicine as prescribed How confident are you that you can control & manage most of your health problems?: very confident What is your race?: or origin or descent PHQ-9 Over the last 2 weeks, how often have you been bothered by any of the following problems? 1. Little interest or pleasure in doing things: not at all 2. Feeling down, depressed, or hopeless: not at all 3. Trouble falling or staying asleep, or sleeping too much: not at all 4. Feeling tired or having little energy: not at all 5. Poor appetite or overeating: several days 6. Feeling bad about yourself - or that you are a failure or have let yourself or your family down: not at all 7. Trouble concentrating on things, such as reading the newspaper or watching television: not at all 8. Moving or speaking so slowly that other people could have noticed. Or the opposite - being so fidgety or restless that you have been moving around a lot more than usual: not at all 9. Thoughts that you would be better off or of hurting yourself in some way: not at all Total score: 1 Depression Screening Interpretation: Positive Depression Screening Done: Yes 83470 - PHQ-9 Billing: Yes Source: Developed by Drs. Konstantin Langston, Saskia Sales, Luciano Leach and colleagues, with an educational liya from [employer]. Review of Systems Const Denies poor appetite and Denies weakness Eyes Denies no additional complaints ENT Reports Normal hearing present, Denies dizziness, Denies nasal congestion, Denies tinnitus and Denies sore throat Card Denies chest pain, Denies syncope, Denies rapid heart rate and Denies dyspnea Resp Denies cough and Denies dyspnea GI Denies change in stool character, Reports constipation, Denies diarrhea, Denies nausea and Denies vomiting Denies urinary frequency, Denies difficulty voiding and Denies dysuria Neuro Reports Normal hearing present, Denies confusion, Denies dizziness, Denies syncope and Denies weakness Psych Denies confusion Physical Exam Vital Signs: Last Vital Signs Temp 97.3 F 02/10/25 15:17 Pulse 60 02/10/25 15:17 BP 118/90 H 02/10/25 15:17 Pulse Ox 100 02/10/25 15:17 Oxygen Delivery Method Room Air 02/10/25 15:17 BMI result Body Mass Index 38.7 Const General: No confusion Orientation/consciousness: No confusion HEENT Head: Yes normocephalic Ears: external ears normal and TM's normal bilaterally Face and sinus: Yes normal facial exam Mouth: moist mucous membranes Throat: Yes tonsils normal Eyes Conjunctivae: conjunctivae normal Pupils: Equal, round and reactive pupils present and Pupil accommodation reflex normal Direct Ophthalmoscopy: normal light reflex Neck Neck: No lymphadenopathy Thyroid: Thyroid normal Chest Chest palpation & inspection: normal inspection of the chest Resp Effort & Inspection: normal respiratory effort and no audible wheezes Auscultation: clear to auscultation bilaterally, no crackles, no wheezes and lung sounds not diminished Cardio Rate: regular rate Rhythm: regular rhythm Peripheral pulses: radial pulses present and dorsalis pedis present GI Other: guaiac negative Palpation (GI): no masses Auscultation: normal bowel sounds and normoactive bowel sounds Rectal Exam - Female: deferred Skin General skin exam: no rashes or lesions noted Rashes: no rashes Neuro General: No confusion Cranial nerves: Yes Equal, round and reactive pupils present and Yes Normal hearing present Cognition (Neuro): normal cognition Gait exam (Neuro): Normal gait present Motor exam (neuro): 5/5 motor strength present throughout Deep tendon reflexes (DTR's): Right brachioradialis reflex intensity grade: 2+, Left brachioradialis reflex intensity grade: 2+, Right patellar reflex intensity grade: 2+ and Left patellar reflex intensity grade: 2+ Extrem General: No edema Results AMB Hemoglobin A1c AMB Hemoglobin A1c 6.9 % Last Edit by Valeri Schwartz CMA on 02/10/25 15:32 Results Reviewed Results Reviewed: Laboratory Last Values Hgb A1c (Clinic) 6.9 % (4.0-6.0) H 02/10/25 15:31 Assessment & Plan Assessment & Plan (1) Medicare annual wellness visit, subsequent: Code(s): Z00.00 - Encounter for general adult medical examination without abnormal findings Plan: Patient is advised to eat healthy, keep well hydrated, keep active and have adequate sleep. (2) Tobacco abuse: Code(s): Z72.0 - Tobacco use Plan: Patient is strongly advised to stop smoking summation point (3) Asthma: Comment: Code(s): J45.909 - Unspecified asthma, uncomplicated Qualifiers: Asthma complication type: uncomplicated Asthma persistence: intermittent Asthma severity: mild Qualified Code(s): J45.20 - Mild intermittent asthma, uncomplicated Plan: Patient is strongly advised to stop smoking! On albuterol inhaler as needed and Alvesco (4) Type 2 diabetes mellitus with hyperglycemia: Comment: Dr. Mcadams Code(s): E11.65 - Type 2 diabetes mellitus with hyperglycemia Qualifiers: Diabetes mellitus terminal make up operator insulin use: without terminal make up operator use Qualified Code(s): E11.65 - Type 2 diabetes mellitus with hyperglycemia Plan: Decrease the amount of carbohydrate intake, pasta, bread, rice and potatoes are all sugar and that is aside from all the sweet stuff, remember that fruits are good but they are Sweet also. Hemoglobin A1c goal of less than 7.0. On diet (5) HTN (hypertension), benign: Code(s): I10 - Essential (primary) hypertension Plan: Continue with blood pressure medication. Decrease salt intake and exercise patient is taking lisinopril 40 mg once a day metoprolol 150 mg once a day hydrochlorothiazide 25 mg once a day (6) High cholesterol: Code(s): E78.00 - Pure hypercholesterolemia, unspecified Plan: Avoid fried foods, chicken skin, eggs, butter margarine, pastries and meat. Be it pork or beef they have a lot of cholesterol LDL goal of less than 100 and triglyceride of less than 150 patient is on atorvastatin 10 mg once a day (7) Obesity (BMI 30-39.9): Comment: Diet and exercise Code(s): E66.9 - Obesity, unspecified Plan: Diet and exercise (8) GERD (gastroesophageal reflux disease): Code(s): K21.9 - Gastro-esophageal reflux disease without esophagitis Qualifiers: Esophagitis presence: without esophagitis Qualified Code(s): K21.9 - Gastro-esophageal reflux disease without esophagitis Plan: Avoid the foods that causes that usually spicy foods, tomato products, juices, coffee, soda and foods that your sensitive to. After eating do not lie down, allow 3-4 hours before in lie down. And keep the head of bed above 30 degrees to avoid the acid from going up. (9) CKD stage 3a, GFR 45-59 ml/min: Code(s): N18.31 - Chronic kidney disease, stage 3a Plan: Keep well hydrated avoid NSAIDs continue to control the blood pressure Plan History of Present Illness The patient is a 69-year-old female presenting for an annual wellness visit. She has a history of obesity and has recently experienced a 4-pound weight loss. She is a smoker and has been diagnosed with diabetes mellitus, with a recent hemoglobin A1c of 6.9, indicating suboptimal control. The patient has a history of asthma, for which she uses an albuterol inhaler as needed. She also has hypertension, managed with lisinopril, metoprolol, and hydrochlorothiazide. Her medical history includes hypercholesterolemia, with an LDL cholesterol level of 62 mg/dL as of October 2024. She is on atorvastatin for cholesterol management. The patient has gastroesophageal reflux disease (GERD) and is advised to avoid NSAIDs and maintain hydration. She has osteoporosis, with the last bone density test conducted in October 2022. Chronic kidney disease is present, likely of vascular origin, and she follows up with nephrology. A renal ultrasound showed borderline elevated resistive indices, not suggestive of renal artery stenosis. The patient also has peripheral artery disease and has undergone cataract surgery. Health Maintenance - Mammogram up to date as of December 2024 - Colonoscopy performed in 2019 - Bone density test last conducted in October 2022 - Flu and COVID vaccinations administered in February Social History - Smoking: Patient is a current smoker - Diet: Advised to avoid sweets and maintain a healthy diet Review of Systems - General: Reports weight loss of 4 pounds - Respiratory: Reports wheezing, denies dyspnea - Cardiovascular: Denies chest pain - Gastrointestinal: Reports heartburn if famotidine is not taken - Genitourinary: Reports nocturia, urinating four times per night Physical Exam General: Cooperative, healthy appearing, comfortable, no acute distress and well developed Orientation: Patient oriented x3 Limitations: No limitations Head: Normal to inspection Ears: Hearing grossly normal bilaterally Nose: Normal external nose present Face and sinus: Normal facial exam Eyes: Appearance normal, both eyes and all related structures; patient had cataract surgery Neck: Normal visual inspection and Yes full ROM Respiratory: Normal respiratory effort and able to speak in complete sentences. Clear to auscultation bilaterally, but wheezing noted Cardiovascular: Regular rate and rhythm. Normal S1 and S2 GI: Normal to inspection. Soft to palpation and nontender Skin: No rashes or lesions noted Neuro: Patient oriented x3 Extremities: Normal to inspection Results - Labs: Hemoglobin A1c 6.9% - Labs: LDL cholesterol 62 mg/dL - Imaging: Renal ultrasound with borderline elevated resistive indices, no renal artery stenosis Plan Patient was informed and verbally consented to the use of an ambient scribe for clinic note documentation during this visit. 1. Obesity The patient is advised to continue monitoring her weight and is encouraged to maintain a healthy diet and exercise regimen to aid in further weight loss. 2. Diabetes Mellitus The patient's hemoglobin A1c is 6.9%, and the goal is to maintain it below 7.0%. She is advised to adhere to dietary recommendations and monitor her blood glucose levels regularly. 3. Asthma The patient is on an albuterol inhaler as needed and is advised to avoid smoking to reduce exacerbations. 4. Hypertension The patient is currently on lisinopril, metoprolol, and hydrochlorothiazide for blood pressure management. Regular monitoring of blood pressure is recommended. 5. Hypercholesterolemia The patient is on atorvastatin 10 mg daily, with an LDL goal of less than 100 mg/dL. 6. Gastroesophageal Reflux Disease (Gerd) The patient is advised to avoid NSAIDs and maintain adequate hydration to manage GERD symptoms. 7. Osteoporosis The patient is on bone medication and a follow-up bone density test is recommended. 8. Chronic Kidney Disease The patient is advised to continue follow-up with nephrology and avoid NSAIDs. 9. Peripheral Artery Disease The patient is advised to maintain regular follow-up with her healthcare providers to manage peripheral artery disease. Discussion Notes During the visit, I discussed the importance of maintaining a healthy lifestyle, including diet and exercise, to manage obesity and diabetes mellitus. I emphasized the need for regular monitoring of blood pressure and cholesterol levels, and the importance of medication adherence for hypertension and hypercholesterolemia. We also reviewed the management of asthma and GERD, advising the patient to avoid smoking and NSAIDs. The patient was informed about the need for regular follow-ups with nephrology for chronic kidney disease and the importance of bone density monitoring for osteoporosis. Patient Instructions - Monitor weight and maintain a healthy diet and exercise routine. - Check blood glucose levels regularly and aim for an A1c below 7.0%. - Take medications as prescribed for hypertension and cholesterol. - Avoid smoking and NSAIDs to manage asthma and GERD. - Follow up with nephrology for chronic kidney disease management. - Schedule a follow-up bone density test for osteoporosis monitoring. Orders: Orders AMB Hemoglobin A1c Today Z13.9 - Encounter for screening, unspecified XR DEXA axial skeleton Today M81.0 - Age-related osteoporosis without current pathological fracture, M85.80 - Other specified disorders of bone density and structure, unspecified site Medications: Refilled lisinopril 40 mg PO DAILY 90 tabs 3RF M85.80 - Other specified disorders of bone density and structure, unspecified site atorvastatin 10 mg PO DAILY 90 tabs 3RF E78.00 - Pure hypercholesterolemia, unspecified Quality Reporting (2019) Depression/Bipolar (159/160/161/177) PHQ-9: Total score: 1 Coding Level of Care Code Medicare Subsequent (G0439) Diagnoses Medicare annual wellness visit, subsequent Z00.00 Tobacco abuse Z72.0 Mild intermittent asthma without complication J45.20 Asthma complication type: uncomplicated Asthma persistence: intermittent Asthma severity: mild Type 2 diabetes mellitus with hyperglycemia, without long-term current use of insulin E11.65 Diabetes mellitus snf insulin use: without snf use HTN (hypertension), benign I10 High cholesterol E78.00 Obesity (BMI 30-39.9) E66.9 Gastroesophageal reflux disease without esophagitis K21.9 Esophagitis presence: without esophagitis CKD stage 3a, GFR 45-59 ml/min N18.31 Additional Codes PHQ-9 - 37607 - PHQ-9 Billing: Yes ([id number])
[2025-02-10 15:17] VITALS: BP 118/90; PULSE 60; TEMP 36.3; O2SAT 100; BMI 38.7
--- OUTSIDE RECORDS SUMMARY | 2025-02-10 16:54 | XMS_ITS | Clinical Summary ---
Author Organization [employer] Address [address] [place] [address] [address] [place] [address] Care Team Providers
== END 2025-02-10 16:17 | disposition home or self-care (01) ==
LOC: HO.HMCH 14:22
PROVIDERS: PCP Internal Medicine; Visit Provider Internal Medicine
DX: Z00.00 Encounter for general adult medical examination without abnormal findings (principal); E11.65 Type 2 diabetes mellitus with hyperglycemia; N18.31 Chronic kidney disease, stage 3a; Z72.0 Tobacco use; I10 Essential (primary) hypertension; J45.20 Mild intermittent asthma, uncomplicated; E78.00 Pure hypercholesterolemia, unspecified; E66.9 Obesity, unspecified; K21.9 Gastro-esophageal reflux disease without esophagitis

== ENCOUNTER → 2025-02-10 14:21 | Outpatient (BNVA) | payer MEDICARE, MEDICAID, SELFPAY | PROVIDERS: PCP Internal Medicine; Visit Provider Internal Medicine | DX: Z00.00 Encounter for general adult medical examination without abnormal findings (principal); J45.20 Mild intermittent asthma, uncomplicated; E11.65 Type 2 diabetes mellitus with hyperglycemia; E78.00 Pure hypercholesterolemia, unspecified; E66.9 Obesity, unspecified; K21.9 Gastro-esophageal reflux disease without esophagitis; E11.22 Type 2 diabetes mellitus with diabetic chronic kidney disease; I12.9 Hypertensive chronic kidney disease with stage 1 through stage 4 chronic kidney disease, or unspecified chronic kidney disease; N18.31 Chronic kidney disease, stage 3a; M81.0 Age-related osteoporosis without current pathological fracture; E11.51 Type 2 diabetes mellitus with diabetic peripheral angiopathy without gangrene; F17.210 Nicotine dependence, cigarettes, uncomplicated; Z68.38 Body mass index [BMI] 38.0-38.9, adult | CPT/HCPCS: 83036; 96127 ==

== ENCOUNTER 2025-04-08 08:09 | Outpatient (REF) | payer MEDICARE, MEDICAID, SELFPAY ==
[2025-04-08 09:28] LABS: Anion Gap 15 (12-20); Blood Urea Nitrogen 18 mg/dL (9-16); Carbon Dioxide 25 mmol/L (22-29); Chloride 105 mmol/L (96-108); Estimated Glomerular Filt Rate 45; Potassium 4.7 mmol/L (3.3-5.1); Sodium 140 mmol/L (135-145)
== END 2025-04-08 08:10 | disposition home or self-care (01) ==
LOC: HO.LAB 08:09
PROVIDERS: PCP Internal Medicine; Visit Provider Internal Medicine Nephrology
DX: I12.9 Hypertensive chronic kidney disease with stage 1 through stage 4 chronic kidney disease, or unspecified chronic kidney disease (principal); N18.31 Chronic kidney disease, stage 3a
CPT/HCPCS: 36415; 80051; 82565; 84520

== ENCOUNTER 2025-04-24 11:44 | Outpatient (AMB) | payer MEDICARE, MEDICAID, SELFPAY ==
--- NOTE | 2025-04-24 12:05 | HO.NEPHOV_ITS ---
Vital Signs 04/24/25 12:06 Height 4 ft 11 in Weight 197 lb 6 oz BMI 39.9 BP 124/80 Blood Pressure Location Lt brachial Position Sitting Pulse 68 Pulse Source Pulse Oximeter Pulse Oximetry (%) 99 Oxygen Delivery Method Room Air Intake Visit Reasons: 3mnth w lab-Conf Drill Bit Sharpener Required: Yes Drill Bit Sharpener Language: Echocardiograph Technician Services: Drill Bit Sharpener Offered & Declined ([facility] [place] Drill Bit Sharpener services refused ) Accompanied by: Daughter Allergies felodipine Adverse Reaction (Intermediate, Verified 04/24/25 12:06) leg swelling ibuprofen (From Motrin) Adverse Reaction (Intermediate, Verified 04/24/25 12:06) GI UPSET HPI Comments Details: Bhavana was seen for follow up of CKD and resistant hypertension. She is 69 years of age who has been hypertensive for a long time. She is on multiple antihypertensive medications but still her BP is not well controlled. She claims to be compliant with her medications. She is not a diabetic and denies CAD, CVA, CHF , retinopathy or proteinuria. She has PAD but no H/O AUSTEN, hypokalemia, uncontrolled hypothyroidism, hypercalcemia, RANI. She denies edema, chest pain, SOB, orthostatic symptoms, hematuria, palpitations, syncope or flushing. She does not take any excess NSAID's, herbs or has any H/O drug use. Her last serum creatinine has been stable [facility] Medical History (Updated 02/10/25 @ 15:49 by Michelle Sanchez MD) Osteopenia Bilateral cataracts Irritable bowel syndrome with both constipation and diarrhea Renal cyst Asthma exacerbation Annual physical exam Renal calculi Abscess of nipple, left On beta saniya at home History of anemia IBS (irritable bowel syndrome) GERD (gastroesophageal reflux disease) History of memory loss Elevated cholesterol HTN (hypertension) Asthma Colon cancer screening Seborrheic keratosis Knee pain, right Gastric ulcer Type 2 diabetes mellitus with hyperglycemia Tobacco abuse Obesity (BMI 30-39.9) Otitis externa Illiterate Osteoarthritis Surgical History Hx of right cataract extraction (11/25/24) History of arthroscopy of left knee Hx of section History of hysterectomy H/O colonoscopy with polypectomy History of esophagogastroduodenoscopy (EGD) H/O cystoscopy H/O oophorectomy History of total knee replacement Family History Father Prostate cancer Mother Brain tumor Social History Household Members: None Housing: Apartment Are you a primary college and career counselor to a significant other at home: No Do you presently have visiting nurse or other home services: No Alcohol intake: current Alcohol intake frequency: does not drink Comment: once q 3 month 1 drinks Patient Tobacco Use Status: Current everyday Tobacco user Tobacco use type: Cigarette Cigarette Packs Per Day: 0.5 Cigarettes Per Day: 10.0 Years Smoked: 2-3 cigarette a day e-Cigarette/Vaping Use: Never Used Second Hand Smoke Exposure: No service: No Current occupational status: disabled Cognitive needs: Yes Hearing needs: No Vision needs: No Review of Systems Const All systems reviewed & are unremarkable except as noted in HPI and below Physical Exam Vital Signs: Last Vital Signs Pulse 68 04/24/25 12:06 BP 124/80 04/24/25 12:06 Pulse Ox 99 04/24/25 12:06 Oxygen Delivery Method Room Air 04/24/25 12:06 BMI result Body Mass Index 39.9 Const General: comfortable and no acute distress Orientation/consciousness: patient oriented x3 HEENT Head: Yes normocephalic Mouth: Normal oral and palatal mucosa present Eyes EOM: EOMs intact bilaterally Neck Neck: Yes supple Resp Auscultation: clear to auscultation bilaterally Cardio Jugular venous distension: no JVD Rate: regular rate GI Palpation (GI): Soft to palpation Auscultation: normal bowel sounds General: Yes no CVA tenderness Back/Spine/Pelvis Back: no CVA tenderness Skin General skin exam: no rashes or lesions noted Neuro General: patient oriented x3 and moves all extremities Extrem General: Yes no pedal edema Results Reviewed Nephrology Results: Sodium, (135-145) 140 mmol/L 04/08/25 Potassium, (3.3-5.1) 4.7 mmol/L 04/08/25 Chloride, (96-108) 105 mmol/L 04/08/25 Carbon Dioxide, (22-29) 25 mmol/L 04/08/25 BUN, (9-16) 18 mg/dL H 04/08/25 Creatinine, (0.5-1.4) 1.20 mg/dL 04/08/25 Calcium, (8.4-10.2) 9.2 mg/dL 01/09/25 Urine Creatinine 48.86 mg/dL 01/09/25 Protein/Creatinin Ratio TNP 01/09/25 Renal US 01/17/25 Assessment & Plan Assessment & Plan (1) CKD stage 3a, GFR 45-59 ml/min: Code(s): N18.31 - Chronic kidney disease, stage 3a Category: Medical (2) Renal cyst: Code(s): N28.1 - Cyst of kidney, acquired Category: Medical (3) Resistant hypertension: Code(s): I1A.0 - Resistant hypertension Category: Medical Plan She claims to be compliant with her medications.She has PAD but no H/O AUSTEN, hypokalemia, uncontrolled hypothyroidism, hypercalcemia, RANI. She should be on low sodium diet and continue lifestyle modifications. Doppler of renal arteries reviewed . She should continue Spironolactone 25 mg. She is aware of common side effects including possibility of hyperkalemia given she is on ACEI. She should avoid NSAID's and maintain good hydration. Her last serum creatinine has been stable . She has CKD likely from vascular disease and long standing hy pertension. She will be a great candidate for SGLT2i in the future. Further management is pending evolving data Orders: Orders Electrolytes 6 Months I1A.0 - Resistant hypertension Blood Urea Nitrogen 6 Months I1A.0 - Resistant hypertension Creatinine 6 Months I1A.0 - Resistant hypertension Coding Level of Care Code Est Pt Level 4 (76135) Diagnoses CKD stage 3a, GFR 45-59 ml/min N18.31 Renal cyst N28.1 Resistant hypertension I1A.0
[2025-04-24 12:06] VITALS: BP 124/80; PULSE 68; O2SAT 99; BMI 39.9
--- OUTSIDE RECORDS SUMMARY | 2025-04-24 15:50 | XMS_ITS | Clinical Summary ---
Author Organization [facility] [employer] Address [address] [place] [address] [address] [place] [address] Care Team Providers Care Security Control Assessor Name Role Phone Unavailable Primary Care Provider [...] patient's age to complete this topic Insurance [address] [place] [address] STANDARD
== END 2025-04-24 12:28 | disposition home or self-care (01) ==
LOC: HO.HKAS 11:45
PROVIDERS: PCP Internal Medicine; Visit Provider Internal Medicine Nephrology
DX: N18.31 Chronic kidney disease, stage 3a (principal); N28.1 Cyst of kidney, acquired; I1A.0 Resistant hypertension
CPT/HCPCS: 99214

== ENCOUNTER → 2025-04-24 11:44 | Outpatient (BNVA) | payer MEDICARE, MEDICAID, SELFPAY | PROVIDERS: PCP Internal Medicine; Visit Provider Internal Medicine Nephrology | DX: N18.31 Chronic kidney disease, stage 3a (principal); N28.1 Cyst of kidney, acquired; I1A.0 Resistant hypertension | CPT/HCPCS: 99212 ==